=== PATIENT | female | born 1980 | race Two or more races ===

== ENCOUNTER 2024-05-10 03:34 | Inpatient (IN) | payer MEDICAID, SELFPAY ==
[2024-05-10] VITALS (12 sets, daily range): BP systolic 109–152; BP diastolic 57–98; PULSE 55–94; RESP 16–23; TEMP 36.6–36.8; O2SAT 96–98; BMI 31.8; BMI 31.9
--- NOTE | 2024-05-10 04:04 | PD.EDRME ---
Rapid Medical Screening Exam RME Arrival date/time: 05/10/24 03:34 Chief Complaint: Fever Time Seen by Provider: 05/10/24 03:53 Vital signs: Vital Signs Temperature 98.2 F 05/10/24 03:58 Pulse Rate 94 05/10/24 03:58 Respiratory Rate 23 H 05/10/24 03:58 Blood Pressure 140/98 H 05/10/24 03:58 Pulse Oximetry (%) 98 05/10/24 03:58 Oxygen Delivery Method Room Air 05/10/24 03:58 [facility] Narrative: Fever, N/V, lower back pain, dysuria, urinary frequency since yesterday. Hx urosepsis multiple times in past. Hx of kidney transplant 2010. Prescribed Augmentin for UTI at PCP yesterday, patient took 1 dose.
[2024-05-10 04:24] LABS: Collection Type, Urine Clean Catch
--- NOTE | 2024-05-10 04:53 | PD.EDFEVER ---
ED Fever RME/HPI General Chief Complaint: Fever Stated Complaint: Re-UTI, Abdominal pain NV x 1 day, fever Time Seen by Provider: 05/10/24 03:53 Arrival date/time: 05/10/24 03:34 RME / HPI RME / HPI Narrative: Fever, N/V, lower back pain, dysuria, urinary frequency since yesterday. Hx urosepsis multiple times in past. Hx of kidney transplant 2010. Prescribed Augmentin for UTI at PCP yesterday, patient took [address] ------- Dr. Polanco?s Main ED Evaluation: 44yo female presents to the ED for fever, body aches, and UTI symptoms. Patient states she's had a fever since yesterday, reporting she last took Tylenol at 2200. Patient endorses having a fever, body aches, dysuria, and urinary frequency. She denies any nausea, vomiting, diarrhea or any other associated symptoms. 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) currently on immunosuppressants (cyclosporine, prednisone, mycophenolate), HTN, HLD, T2DM, recurrent UTIs Related Data Home Medications ?Medication ?Instructions ?Recorded ?Confirmed cyclosporine modified 100 mg 100 mg PO BID 08/11/22 02/21/24 capsule glipizide 10 mg tablet, extended 10 mg PO BID 08/11/22 02/21/24 release 24 hr (Glucotrol XL) metoprolol tartrate 50 mg tablet 50 mg PO BID 08/11/22 02/21/24 mycophenolate sodium 180 mg 540 mg PO BID 08/11/22 08/29/23 tablet,delayed release prednisone 2.5 mg tablet 2.5 mg PO DAILY 08/11/22 02/21/24 mycophenolate sodium 180 mg 180 mg PO BID 02/22/24 02/22/24 tablet,delayed release mycophenolate sodium 180 mg mg PO 02/22/24 tablet,delayed release Previous Rx's ?Medication ?Instructions ?Recorded sitagliptin phosphate 50 mg tablet 50 mg PO QDAY #30 tabs 07/24/23 (Januvia) baclofen 20 mg tablet 20 mg PO BID #10 tabs 01/31/24 ondansetron 4 mg disintegrating 4 mg PO Q8H PRN nausea and 02/23/24 tablet vomiting #10 tabs oxycodone-acetaminophen 5 mg-325 1 tab PO Q6HR PRN PAIN SCALE 7-10 02/23/24 mg tablet (severe) #5 tabs fluconazole 150 mg tablet 150 mg PO QDAY #3 tabs 02/25/24 Allergies Allergy/AdvReac Type Severity Reaction Status Date / Time codeine Allergy Severe Rash Verified 02/21/24 12:27 Fish Containing Products Allergy Severe Difficulty Verified 02/21/24 12:27 Breathing vancomycin Allergy Severe RASH Verified 02/21/24 12:27 Review of Systems Review of Systems Systems Reviewed: All systems reviewed, normal except as documented Physical Exam Narrative Physical exam: GENERAL APPEARANCE: alert and oriented x 4, well-developed, well-nourished, no acute distress VITALS: All vitals were reviewed and the pulse ox is 98% on room air, which is normal according to my interpretation. HEENT: Normocephalic, atraumatic; pupils equal, round, reactive to light; EOMI; mucous membranes pink, moist; oropharynx clear NECK: Supple LUNGS: CTABL; no wheezes, no rales, no rhonchi HEART: Regular rate, regular rhythm; normal S1, S2; no murmurs ABDOMEN: non distended; normal BS; soft, no tenderness, no guarding, no rebound; no masses, no organomegaly, no hernia BACK: no CVA tenderness EXTREMITIES: atraumatic; no edema NEUROLOGIC: awake; alert and oriented x4; cranial nerves II-XII grossly intact; no focal sensory or motor deficits PSYCHIATRIC: appropriate mood and affect SKIN: warm, dry, normal color; no rashes Course Course Course Narrative: CXR is ordered for determining the etiology of fever. Quality Measures none Orders Category Date Time Status Network Intelligence Analyst STAT Care 05/10/24 05:05 Active Continuous Pulse Oximetry STAT Care 05/10/24 05:05 Completed EKG (ED ONLY) *Do not use* NOW Care 05/10/24 05:04 Completed In and Out Catheter [id number] Care 05/10/24 05:05 Active Insert IV NOW Care 05/10/24 05:05 Active Insert IV NOW Care 05/10/24 05:05 Active NPO STAT Care 05/10/24 05:05 Active Strict Intake and Output Routine Care 05/10/24 05:05 Ordered EKG (ED Only) Stat Exams 05/10/24 05:04 Ordered XR chest 1V portable Stat Exams 05/10/24 05:08 Ordered B-Type Natriuretic Peptide Stat Lab 05/10/24 05:05 Ordered Blood Culture (Lab) Stat Lab 05/10/24 04:06 Ordered CBC Stat Lab 05/10/24 04:06 Ordered CMP [Comprehensive Metabolic Panel] Stat Lab 05/10/24 04:06 Ordered HCG Qualitative,Urine Stat Lab 05/10/24 04:13 Completed LDH (Lactate Dehydrogenase) Stat Lab 05/10/24 05:05 Ordered Lactate (Lactic Acid) Stat Lab 05/10/24 04:06 Ordered Lipase Stat Lab 05/10/24 05:05 Ordered Magnesium Stat Lab 05/10/24 05:05 Ordered Partial Thromboplastin Time Stat Lab 05/10/24 05:05 Ordered Phosphorous Stat Lab 05/10/24 05:05 Ordered Procalcitonin Stat Lab 05/10/24 04:06 Ordered Prothrombin Time with INR Stat Lab 05/10/24 05:05 Ordered Troponin I Stat Lab 05/10/24 05:05 Ordered UA [Urinalysis] Stat Lab 05/10/24 04:13 Completed Urine Culture Stat Lab 05/10/24 04:13 Received Acetaminophen Tab [Tylenol ES Tab] Med 05/10/24 05:04 Discontinued 1,000 mg PO X1 ONE Morphine Inj Med 05/10/24 04:48 Discontinued 4 mg IVP X1 ONE Ondansetron Inj [Zofran Inj] Med 05/10/24 04:48 Discontinued 4 mg IV X1 ONE Sodium Chloride 0.9% 1000 ml [Ns] 1,000 ml Med 05/10/24 04:49 Discontinued IV 999 mls/hr Sodium Chloride 0.9% 1000 ml [Ns] 1,572 ml Med 05/10/24 05:04 Active IV 1,572 mls/hr Vital Signs Vital signs: Vital Signs Temperature 98.2 F 05/10/24 03:58 Pulse Rate 94 05/10/24 03:58 Respiratory Rate 23 H 05/10/24 03:58 Blood Pressure 140/98 H 05/10/24 03:58 Pulse Oximetry (%) 98 05/10/24 03:58 Oxygen Delivery Method Room Air 05/10/24 03:58 Fever MDM Narrative MDM Narrative:: Scribe Attestation: 05/10/24 Jessica Godinez am scribing for and in the presence of Dr. Polanco. 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 Bloodwork is pending at sign out. EKG done at 0516, NSR, rate of 77, normal axis, no ectopy, Q wave in V1 and V2, ST abnormalities in lead III and avF, QTc: 377, no acute ischemia, according to my interpretation. Medications / Prescriptions Medications or Prescriptions considered but not ordered:: none Medication administrations:: Medication Administration History Sodium Chloride (Ns) 1,572 mls @ 1,572 mls/hr 30 ml/kg infuse over 60 min (1572 ml) IV .Q1H ONE Stop: 05/10/24 06:03 Last Admin: 05/10/24 05:09 Dose: 1,572 mls/hr Documented By: JAY Discontinued Medications Acetaminophen (Acetaminophen 500 Mg Tablet) 1,000 mg PO X1 ONE Stop: 05/10/24 05:05 Last Admin: 05/10/24 05:12 Dose: 1,000 mg Documented By: JAY Sodium Chloride (Ns) 1,000 mls @ 999 mls/hr IV .Q1H1M ONE Stop: 05/10/24 05:49 Last Admin: 05/10/24 05:09 Dose: Not Given Documented By: JAY Non-Admin Reason: Discontinued Morphine Sulfate (Morphine Sulf Inj 10 Mg/Ml Vial) 4 mg IVP X1 ONE Stop: 05/10/24 04:49 Last Admin: 05/10/24 05:09 Dose: 4 mg Documented By: JAY Ondansetron HCl (Ondansetron Inj 2 Mg/Ml Inj 2 Ml) 4 mg IV X1 ONE; Protocol Stop: 05/10/24 04:49 Last Admin: 05/10/24 05:09 Dose: 4 mg Documented By: JAY see above Consultations Consultation(s) initiated? (list below): No Diagnosis Fever Differential Diagnosis: pyelonephritis and other (graft rejection, UTI, urosepsis) Most likely diagnosis given after review of the tests above:: final dx pending at sign out. Admission Indicated Admission indicated?: not indicated Admission Request Was there a request for admission?: No Disposition Plan Disposition Plan: other (specify) (Signed out to Dr. Alvares at 0600 pending bloodwork.) Discharge Plan Prescriptions/Referrals Prescriptions/Med Rec: No Action baclofen 20 mg tablet 20 mg PO BID Qty: 10 0RF mycophenolate sodium 180 mg tablet,delayed release (DR/EC) 180 mg PO BID mycophenolate sodium 180 mg tablet,delayed release (DR/EC) PO oxycodone-acetaminophen 5-325 mg Tablet 1 tab PO Q6HR MDD 20mg PRN (Reason: PAIN SCALE 7-10 (severe)) Qty: 5 0RF Rx Instructions: Take 1 tablet as needed for severe pain ondansetron 4 mg tablet,disintegrating 4 mg PO Q8H PRN (Reason: nausea and vomiting) Qty: 10 0RF fluconazole 150 mg tablet 150 mg PO QDAY Qty: 3 0RF glipizide [Glucotrol XL] 10 mg Tablet Extended Release 24hr 10 mg PO BID prednisone 2.5 mg tablet 2.5 mg PO DAILY metoprolol tartrate 50 mg Tablet 50 mg PO BID mycophenolate sodium 180 mg tablet,delayed release (DR/EC) 540 mg PO BID cyclosporine modified 100 mg capsule 100 mg PO BID Januvia 50 mg tablet 50 mg PO QDAY Qty: 30 0RF Problem List Clinical Impression: UTI (urinary tract infection) Patient/Caregiver Discharge Instructions Print Language: Indonesian
[2024-05-10 04:55] LABS: Bilirubin,Urine Negative (Negative); Blood,Urine Trace (Negative); Budding Yeast,Urine Present; Color,Urine Lt-Yellow (Lt Yel-Yel); Glucose, Urine 1+ (Negative); Ketones,Urine Negative (Negative); Leukocyte Esterase,Urine Positive (Negative); Nitrite,Urine Negative (Negative); Protein,Urine Trace (Neg - Trace); RBC,Urine 10 /hpf (0-3); Specific Gravity,Urine 1.012 (1.001-1.035); Squamous Epithelial Cell,Urine 9 /hpf (0-5); Urobilinogen,Urine Negative mg/dL (0.0-1.0); WBC,Urine 470 /hpf (0-5)
[2024-05-10 04:56] LABS: Clarity,Urine Hazy (Clear/Hazy)
[2024-05-10 04:59] LABS: HCG Qualitative,Urine Negative
--- NOTE | 2024-05-10 05:08 | XR_ITS ---
Examination: AP chest single view Technique: AP portable upright chest single view Exam date and time: May 10, 2024 0600 hrs. Comparison February 21, 2024 Indications: Onset fever coughing today Findings: Suspicious for early pneumonia lateral left base, blunting the left lateral costophrenic angle Reduced inspiratory effort Right subclavian axillary stent Mild vascular congestion No significant cardiac enlargement Impression: Suspicious for early lateral left base pneumonia
[2024-05-10] MEDS: MORPHINE SULF INJ 10 MG/ML VIAL 4 MG IVP (05:09)
[2024-05-10] MEDS: SODIUM CHLORIDE 0.9% 1000 ML 1,572 ML 1572 ML IV (05:09)
[2024-05-10] MEDS: ONDANSETRON INJ 2 MG/ML INJ 2 ML 4 MG IV ×2 (05:09→13:12)
[2024-05-10] MEDS: ACETAMINOPHEN 500 MG TABLET 1000 MG PO (05:12)
[2024-05-10] MEDS: cefTRIAXone/D5w 1gm IV premix 50 ML IV (05:54)
[2024-05-10 05:56] LABS: Lactate (Lactic Acid) 1.5 mMol/L (0.4-2.0)
[2024-05-10 06:07] LABS: Basophils % (Auto) 0 % (0-2.5); Eosinophils # (Auto) 0.1 Thou/mm3 (0.0-0.5); Eosinophils % (Auto) 0 % (0-10); Hematocrit 34.5 % (36.0-46.0); Hemoglobin 11.8 g/dL (12.0-16.0); Immature Granulocytes % (Auto) 0 % (0-0); Immature Granulocytes Auto 0.04 Thou/mm3 (0.00-0.00); Lymphocytes # (Auto) 1.3 Thou/mm3 (1.0-4.8); Lymphocytes % (Auto) 10 % (10-50); Mean Corpuscular HGB Conc 34.2 g/dl (31.0-37.0); Mean Corpuscular Hemoglobin 28.4 pg (25.0-35.0); Mean Corpuscular Volume 83 fL (80-100); Monocytes % (Auto) 8 % (0-12); Neutrophils # (Auto) 10.2 Thou/mm3 (1.8-7.7); Neutrophils % (Auto) 81 % (37-80); Nucleated Red Blood Cell % 0 /100 WBC (0); Platelet Count 381 Thou/mm3 (140-440); RDW Standard Deviation 41.1 fL (36.4-46.3); Red Blood Count 4.15 Miln/mm3 (4.00-5.20); White Blood Count 12.5 Thou/mm3 (3.6-11.0)
[2024-05-10 06:50] LABS: Alanine Aminotransferase < 7 U/L (10-49); Albumin, Serum 4.5 gm/dL (3.5-5.0); Albumin/Globulin Ratio 1.4 (1.2-2.2); Alkaline Phosphatase 65 U/L (46-116); Anion Gap 8 (7-16); Aspartate Amino Transferase < 10 U/L (0-34); BUN/Creatinine Ratio 12 Ratio (12-20); Bilirubin,Total 0.8 mg/dL (0.3-1.2); Blood Urea Nitrogen 19 mg/dL (9-23); Calcium 9.4 mg/dL (8.3-10.6); Calcium (Corrected) 9.4 mg/dL (8.5-10.1); Carbon Dioxide 20.2 mMol/L (20.0-31.0); Chloride 104 mMol/L (98-107); Creatinine (Component) 1.6 mg/dL (0.6-1.3); Estimated Creatinine Clearance 44.5 mL/min (>60); Globulin 3.2 gm/dL (2.3-3.5); Glucose 186 mg/dL (74-106); LDH (Lactate Dehydrogenase) 161 U/L (120-246); Lipase 41 U/L (12-53); Magnesium 1.8 mg/dL (1.6-2.6); Osmolality,Calculated 271 (275-295); Phosphorous 1.7 mg/dL (2.4-5.1); Potassium 3.6 mMol/L (3.4-5.1); Procalcitonin 0.13 ng/ml (0.0-0.49); Sodium 132 mMol/L (136-145); Total Protein 7.7 gm/dL (5.7-8.2); Troponin I < 0.020 ng/mL (0.0-0.045); eGFR 40 See Note
--- NOTE | 2024-05-10 07:20 | EDNOTE_ITS ---
Emergency Room Addendum <Aleida Pat - Last Filed: 05/10/24 07:22> Addendum Narrative: 0600: Care assumed from Dr. Polanco, the previous shift emergency physician. Past medical, surgical, social and family history reviewed. Vitals and home medications reviewed. I will assume the care of the patient at this time, pending labs and final disposition. Please refer to the emergency department record for history and examination from initial visit.? Nursing notes reviewed by me. Vital signs reviewed by me. [place] medical records reviewed by me. 0718: I spoke with buttonhole marker Dr. Chappell. Discussed patients PMHx, HPI, ED course, exam findings, labs, and radiology results. She agrees to consult. 0722: I spoke with resident Dr. Nelson working with Dr. Lynch. Discussed patients PMHx, HPI, ED course, exam findings, labs, and radiology results. The hospitalist agree to accept the patient for admission. <Vinny Alvares MD - Last Filed: 05/10/24 07:32> Addendum Narrative: I took over the care from Dr. Polanco at 6 AM on 05/10/2024, see his notes for complete H&P and ED course. I reviewed all diagnostic test results. My interpretation of the chest x-ray is equivocal infiltrates. Blood tests remarkable for WBC 12.5, Cr 1.6, phosphorus 1.7. UA showed leukocyte esterase, RBC, WBC, and yeast. At this point, diagnoses include UTI, pyelonephritis, pneumonia, hypophosphatemia. Treatment here included IV fluid, Rocephin, Diflucan. Significant improvement not noted. I discussed the case with our buttonhole marker and our hospitalist. About the presentation and exam and diagnostics and treatments here. And need of further care in the hospital. Will accept the patient. 0718: I spoke with buttonhole marker Dr. Chappell. Discussed patients PMHx, HPI, ED course, exam findings, labs, and radiology results. She agrees to consult. 0722: I spoke with resident Dr. Nelson working with Dr. Lynch. Discussed patients PMHx, HPI, ED course, exam findings, labs, and radiology results. The hospitalist agree to accept the patient for admission.
[2024-05-10 07:45] LABS: B-Type Natriuretic Peptide 24 pg/mL (0-100)
--- NOTE | 2024-05-10 08:00 | PC.NURSE ---
hospitalist at bedside
[2024-05-10] MEDS: HYDROmorphone INJ 2 MG/ML VIAL 1 MG IVP (08:09)
[2024-05-10] MEDS: FLUCONAZOLE/NS 200 MG IVPB 200 MG/100 ML BAG 100 MG IV (08:10)
[2024-05-10 08:43] LABS: Partial Thromboplastin Time 25.5 Seconds (22.0-36.0); Prothrombin Time 11.3 Seconds (9.0-12.2)
--- NOTE | 2024-05-10 09:03 | PD.RESPRO ---
Documentation for date of: 05/11/24 Exam Vital Signs Temp Pulse Resp BP Pulse Ox O2 Del Method 97.4 F 90 17 155/89 H 99 Room Air 05/11/24 08:00 05/11/24 08:02 05/11/24 08:00 05/11/24 08:02 05/11/24 08:00 05/11/24 08:00 Objective Labs 05/11/24 04:45 05/11/24 04:45 Labs: Laboratory Results - last 24 hr 05/11/24 04:45 WBC 8.6 RBC 4.02 Hgb 11.4 L Hct 34.9 L MCV 87 MCH 28.4 MCHC 32.7 RDW Std Deviation 43.6 Plt Count 365 Neut % (Auto) 73 Lymph % (Auto) 18 [place] % (Auto) 8 Eos % (Auto) 1 Baso % (Auto) 0 Neut # (Auto) 6.2 Lymph # (Auto) 1.5 [place] # (Auto) 0.7 Eos # (Auto) 0.1 Baso # (Auto) 0.0 Immature Gran # (Auto) 0.05 H Absolute Nucleated RBC 0.00 Immature Gran % 1 H Nucleated RBC % 0 Sodium 135 L Potassium 3.6 Chloride 105 Carbon Dioxide 23.2 Anion Gap 7 BUN 13 Creatinine 1.4 H Estim Creat Clear Calc 50.9 L eGFR 47 L BUN/Creatinine Ratio 9 L Glucose 119 H D Calculated Osmolality 271 L Calcium 9.1 Corrected Calcium 9.1 Phosphorus 2.8 Magnesium 2.3 Total Bilirubin 0.4 AST < 10 ALT < 7 L Alkaline Phosphatase 71 Total Protein 7.3 Albumin 4.2 Globulin 3.1 Albumin/Globulin Ratio 1.4 Quality Measures Quality Measures none Assessment & Plan Assessment Current Active Medications: Generic Name Dose Route Start Last Admin Trade Name Freq PRN Reason Stop Dose Admin Acetaminophen 650 mg 05/10/24 08:35 Acetaminophen 325 Mg Tablet PO 06/09/24 08:34 Q6H PRN Mild Pain 1-3 or Fever >100.4 Hydrocodone Bitart/Acetaminophen 1 tab 05/10/24 15:06 Hydrocodone/Apap 5/325 Tablet PO 05/15/24 15:05 Q4HR PRN Moderate Pain 4-6 Al Hydrox/Mg Hydrox/Simethicone 15 ml 05/10/24 15:02 Mg Hyd/Al Hyd/Ritchie (Maalox Reg) Susp 30 Ml Udc PO 06/09/24 15:01 QID PRN Vomiting Cyclosporine 100 mg 05/10/24 21:00 05/11/24 08:01 Cyclosporine Modified 25 Mg Capsule PO 06/09/24 20:59 100 mg BID ROSETTE Administration Dextrose 25 ml 05/10/24 08:41 Dextrose 50%-Water Inj 50 Ml Syringe IV 06/09/24 08:40 Q15MIN PRN BG 50-70 responsive npo pt Dextrose 50 ml 05/10/24 08:41 Dextrose 50%-Water Inj 50 Ml Syringe IV 06/09/24 08:40 Q15MIN PRN BG <50 OR BG <70 & pt unresponsive Glucagon 1 mg 05/10/24 08:41 Glucagon Inj 1 Mg Vial IM Q15MIN PRN BG <70, and no IV access Heparin Sodium (Porcine) 5,000 unit 05/10/24 09:00 05/11/24 08:03 Heparin Sod Inj 5000 Unit/Ml Vial SC 05/24/24 08:59 5,000 unit Q12HR ROSETTE Administration Hydromorphone HCl 0.25 mg 05/10/24 15:08 Hydromorphone Inj 2 Mg/Ml Vial IVP 05/15/24 15:07 Q4HR PRN Severe Pain 7-10 Sodium Chloride 1,000 mls @ 80 mls/hr 05/10/24 08:43 05/11/24 01:38 Ns IV 06/09/24 08:42 80 mls/hr .[id number] ROSETTE Administration Ceftriaxone Sodium/Dextrose 50 mls @ 100 mls/hr 05/11/24 09:00 05/11/24 08:02 Rocephin/D5w 1gm Iv Premix IV 05/18/24 08:59 100 mls/hr QDAY ROSETTE Administration Insulin Human Lispro 0 unit 05/10/24 21:00 05/11/24 07:40 Insulin Lispro (Admelog) 1 Unit/0.01 Ml Unit SC 06/09/24 20:59 1 unit ACHS ROSETTE Administration Protocol Metoprolol Tartrate 50 mg 05/10/24 21:00 05/11/24 08:02 Metoprolol Tartrate 25 Mg Tablet PO 06/09/24 20:59 50 mg BID ROSETTE Administration Ondansetron HCl 4 mg 05/10/24 08:35 05/10/24 13:12 Ondansetron Inj 2 Mg/Ml Inj 2 Ml IV 06/09/24 08:34 4 mg Q6H PRN Administration NAUSEA OR VOMITING Protocol Polyethylene Glycol 17 gm 05/11/24 09:00 Polyethylene Glycol 17 Gm Packet PO 06/10/24 08:59 QDAY ROSETTE Prednisone 2.5 mg 05/11/24 09:00 05/11/24 08:02 Prednisone 5 Mg Tablet PO 06/10/24 08:59 2.5 mg DAILY ROSETTE Administration Sennosides 1 tab 05/10/24 08:35 Senna Tablet PO 06/09/24 08:34 QDAY PRN constipation Protocol
[2024-05-10] MEDS: SODIUM CHLORIDE 0.9% 1000 ML 1,000 ML 80 ML IV (10:20)
[2024-05-10] MEDS: HEPARIN SOD INJ 5000 UNIT/ML VIAL SC ×2 (10:20→21:03)
--- NOTE | 2024-05-10 11:37 | PC.CC ---
Patient is a 44 year-old female who presents to the hospital for complicated UTI. Mary NUR made [id number] contact with patient. ASW introduced self, role, and reason for visit. Patient appeared alert and oriented to self, location, and situation. Patient was pleasant and engaged in initial assessment. Patient confirmed information on demographics and reports to living with her family. Patient is employes full-time with [employer]. Patient stated in the event that she is unable to make her own medical decisions her sister, Dori Benz would be her medical decision maker. Patient is able to ambulate independently and complete her own ADLs without assistance. Patient does not use any DME at home. Patient receives primary care with Kris Mccurdy and her pharmacy is [facility]. Upon discharge patient plans to return home. Social servicces to follow up with any discharge needs.
--- NOTE | 2024-05-10 12:36 | PC.NURSE ---
report given to Kandice on med tele floor. pt to go to room [id number]
--- NOTE | 2024-05-10 15:17 | ESHP_ITS ---
<Statement entered by Cayetano Nelson MD - 05/10/24 22:14> This patient is a 44-year-old female with past medical history of hypertension, hyperlipidemia, type 2 diabetes, CKD stage IIIb post a renal transplant for left kidney unrelated living donor 2010 on cyclosporine, prednisone and mycophenolate presented with chief complaint of increased frequency, urgency and increased burning sensation during urination. Patient complained that she also had lower back pain. Patient had recurrent episode of UTI per research program coordinator, Dr Chappell in last 1 year.Renal ultrasound showed moderate renal parenchymal scar formation. Renal artery and renal pelvis show peak systolic velocity 122 cm/s. CT abdomen from 01/31/2024 showed tiny nonobstructing renal calculi no hydronephrosis. Atrophic end-stage [place] kidney. Left pelvic kidney transplant. We started on IV Zosyn and will follow-up on urine cultures. Previous urine cultures were sensitive to Zosyn and are not ESBL. Will hold off on mycophenolate and only continue prednisone and cyclosporine. Patient also has an SHAJI as per research program coordinator baseline creatinine is 1.2. Will continue with pain management and IV antibiotic therapy and follow-up on culture results tomorrow morning. All labs and orders were reviewed. I saw and examined the patient, and I agree with current management stated by Dr Idalmis NOLEN,PGY1. Plan of care was discussed with the attending physician and resident physician. Disclaimer: Despite multiple revisions, due to the dictation software being used, the document bellow may not be free of grammatical errors including phonetic/typographic errors. However, this does not deter from our commitment to providing health care in the patient's best interest in mind. Dr. Omar MD, PGY 2 Documentation for date of: 05/10/24 HPI History of Present Illness History of present illness: CC: cloudy urine & increase frequency Patient has a past medical history of hypertension, hyperlipidemia, diabetes mellitus type 2 [id number], chronic kidney disease 3B status post renal transplant unrelated living donor (2010) on cyclosporine, prednisone, mycophenolate. Patient presented to the emergency room on 05/10/2024 with a chief complaint of increased urge, increased sensation of bladder fullness, nausea, and negative dysuria. Patient stated symptoms first began yesterday but denied fevers or chills at home. Denied emesis. Denied pain. Patient stated he urine is cloudy. Patient is on sure of genetic/familial condition that caused kidney failure but stated multiple family members including her mother have a history of chronic kidney failure at a younger age. ER Course: In the emergency room patient's vitals were stable but hypertensive blood pressure of 140/98. Upon a treatment 132, mild hypokalemia at 3.6, BUN 19, creatinine 1.6, CrCl 44.5, GFR 40. WBC was mildly elevated at 12.5. Glucose 186. Lactate within normal limits 1.5. BMP negative. Troponin within normal limit. Pro-Arnold 0.3. UA esterase positive WBC 470 E. positive bacteria negative PMH: Hypertension, hyperlipidemia, diabetes mellitus type 2 [id number], CKD 3B status post renal transplant living donor unrelated Past Surgical History: Appendectomy 2011 kidney transplant Past Family History: Family of Kidney Failure Home Medication: Glipizide 10 mg twice daily baclofen, metoprolol tartrate 50 p.o. twice daily cyclosporine, prednisone, mycophenolate Social History: Alcohol Use Socially Marijuana Use occasionally Never smoker, denied vaping Denied Illicit Drug use Allergies: Codeine, and Vanco--RASH Code Status: Full Code Review of Systems Review of Systems Narrative Review of Systems: General appearance: NO weight change, NO fatigue, NO weakness, NO fever, NO chills, NO night sweats, No cough Skin: NO rash, NO itching, NO sores, NO moles HEENT: NO Trauma, NO nausea, NO vomiting, NO visual changes, NO blurry vision, NO double vision, NO tinnitus, NO vertigo, NO ear discharge, NO rhinorrhea, NO stuffiness, NO sneezing, NO allergy, NO epistaxis. NO Hoarseness, NO sore throat, NO swollen neck. Cardiac: NO Palpitations, NO dyspnea on exertion, NO orthopnea, NO paroxysmal nocturnal dyspnea, NO edema Respiratory: NO Shortness of Breath, NO Wheezing, NO Cough, NO Sputum, NO hemoptysis GI:NO appetite, NO nausea, NO vomiting, NO dysphagia, NO changes in bowel frequency, NO stool color, NO diarrhea, NO constipation, NO hemetemesis, NO hemorrhoids, NO melena, NO hematechezia, NO abdominal pain, NO jaundice Renal: YES frequency, NO hesitancy, YES urgency, NO hematuria, NO nocturia, NO incontinence MSK: NO muscle weakness, NO gout, NO arthritis, NO muscle stiffness Neuro: NO headaches, NO tremors, NO weakness, NO paralysis, NO seizures, NO loss of consciousness, NO numbness. Hem: NO anemia, NO easy bruising/bleeding, NO petechiae, NO purpura Endo: NO heat/cold intolerance, NO excessive sweating, NO polyuria, NO polydipsia, NO polyphagia, NO thyroid problems, NO diabetes Pysch: NO mood, NO anxiety, NO depression Exam Vital Signs Temp Pulse Resp BP Pulse Ox O2 Del Method 97.9 F 72 16 141/95 H 97 Room Air 05/10/24 12:00 05/10/24 14:05 05/10/24 12:00 05/10/24 12:00 05/10/24 12:00 05/10/24 12:00 Narrative Exam General Appearance: Alert & Oriented X3, well-nourished female who is lying in bed in no acute distress HEENT: Skull symmetrical and atraumatic. Conjunctivae pin and moist. Pupils equal, round, reactive to light and accommodation (PERRL). External ear without lesion or discharge. Straight, nares patient, mucosa pink, no discharge. No thyroid nodule appreciated. No cervical lymphadenopathy. Cardio: Normal Rate and Rhythm with S1 and S2 heart sounds. No murmurs or extra heart sounds auscultated. No bruits on carotid auscultation. No peripheral edema or cyanosis. Lungs: Symmetric with good expansion. Chest and back non-tender. Breath sounds vesicular without crackles, wheezing or rhonchi Abdomen: Non-tender, Non-distended, Normal Reactive Bowel Sounds, costophrenic angle-only MILD tenderness at best Neuro: Alert, cooperative, oriented to person, place, and time. Speech clear. CN grossly intact. Upper motor strength 5/5 and Lower motor strength 5/5. Sensation intact. Results: Labs 05/10/24 05:15 05/10/24 05:15 Labs: Short CBC 05/10/24 Range/Units 05:15 WBC 12.5 H (3.6-11.0) Thou/mm3 Hgb 11.8 L (12.0-16.0) g/dL Hct 34.5 L (36.0-46.0) % Plt Count 381 (140-440) Thou/mm3 BMP 05/10/24 05:15 Sodium 132 L Potassium 3.6 Chloride 104 Carbon Dioxide 20.2 BUN 19 Creatinine 1.6 H Glucose 186 H Calcium 9.4 Cardiac Enzymes 05/10/24 Range/Units 05:15 Troponin I < 0.020 (0.0-0.045) ng/mL Liver Function 05/10/24 Range/Units 05:15 Total Bilirubin 0.8 (0.3-1.2) mg/dL AST < 10 (0-34) U/L ALT < 7 L (10-49) U/L Alkaline Phosphatase 65 (46-116) U/L Albumin 4.5 (3.5-5.0) gm/dL Urine 05/10/24 Range/Units 04:13 Urine Color Lt-Yellow (Lt Yel-Yel) Urine Clarity Hazy (Clear/Hazy) Urine pH 6.0 (5.0-7.0) Ur Specific [place] 1.012 (1.001-1.035) Urine Protein Trace (Neg - Trace) Urine Glucose (UA) 1+ A (Negative) Quality Measures Quality Measures none Medications Home Medications and Allergies Home Medications ?Medication ?Instructions ?Recorded ?Confirmed ?Type cyclosporine modified 100 mg 100 mg PO BID 08/11/22 05/10/24 History capsule glipizide 10 mg tablet, extended 10 mg PO BID 08/11/22 05/10/24 History release 24 hr (Glucotrol XL) metoprolol tartrate 50 mg tablet 50 mg PO BID 08/11/22 05/10/24 History mycophenolate sodium 180 mg 540 mg PO BID 08/11/22 05/10/24 History tablet,delayed release prednisone 2.5 mg tablet 2.5 mg PO DAILY 08/11/22 05/10/24 History Allergies Allergy/AdvReac Type Severity Reaction Status Date / Time codeine Allergy Severe Rash Verified 02/21/24 12:27 Fish Containing Products Allergy Severe Difficulty Verified 02/21/24 12:27 Breathing vancomycin Allergy Severe RASH Verified 02/21/24 12:27 Visit Medications Acetaminophen (Acetaminophen 325 Mg Tablet) 650 mg PO Q6H PRN PRN Reason: Mild Pain 1-3 or Fever >100.4 Stop: 06/09/24 08:34 Hydrocodone Bitart/Acetaminophen (Hydrocodone/Apap 5/325 Tablet) 1 tab PO Q4HR PRN PRN Reason: Moderate Pain 4-6 Stop: 05/15/24 15:05 Al Hydrox/Mg Hydrox/Simethicone (Mg Hyd/Al Hyd/Ritchie (Maalox Reg) Susp 30 Ml Udc) 15 ml PO QID PRN PRN Reason: Vomiting Stop: 06/09/24 15:01 Cyclosporine (Cyclosporine Modified 25 Mg Capsule) 100 mg PO BID [facility] Stop: 06/09/24 20:59 Dextrose (Dextrose 50%-Water Inj 50 Ml Syringe) 25 ml IV Q15MIN PRN PRN Reason: BG 50-70 responsive npo pt Stop: 06/09/24 08:40 Dextrose (Dextrose 50%-Water Inj 50 Ml Syringe) 50 ml IV Q15MIN PRN PRN Reason: BG <50 OR BG <70 & pt unresponsive Stop: 06/09/24 08:40 Glucagon (Glucagon Inj 1 Mg Vial) 1 mg IM Q15MIN PRN PRN Reason: BG <70, and no IV access Heparin Sodium (Porcine) (Heparin Sod Inj 5000 Unit/Ml Vial) 5,000 unit SC Q12HR [facility] Stop: 05/24/24 08:59 Last Admin: 05/10/24 10:20 Dose: 5,000 unit Hydromorphone HCl (Hydromorphone Inj 2 Mg/Ml Vial) 0.25 mg IVP Q4HR PRN PRN Reason: Severe Pain 7-10 Stop: 05/15/24 15:07 Sodium Chloride (Ns) 1,000 mls @ 80 mls/hr IV .[id number] [facility] Stop: 06/09/24 08:42 Last Admin: 05/10/24 10:20 Dose: 80 mls/hr Ceftriaxone Sodium/Dextrose (Rocephin/D5w 1gm Iv Premix) 50 mls @ 100 mls/hr IV QDAY [facility] Stop: 05/18/24 08:59 Insulin Human Lispro (Insulin Lispro (Admelog) 1 Unit/0.01 Ml Unit) 0 unit SC Q6HR [facility]; Protocol Stop: 06/09/24 11:59 Last Admin: 05/10/24 12:17 Dose: Not Given Metoprolol Tartrate (Metoprolol Tartrate 25 Mg Tablet) 50 mg PO BID [facility] Stop: 06/09/24 20:59 Ondansetron HCl (Ondansetron Inj 2 Mg/Ml Inj 2 Ml) 4 mg IV Q6H PRN; Protocol PRN Reason: NAUSEA OR VOMITING Stop: 06/09/24 08:34 Last Admin: 05/10/24 13:12 Dose: 4 mg Prednisone (Prednisone 5 Mg Tablet) 2.5 mg PO DAILY ROSETTE Stop: 06/10/24 08:59 Sennosides (Senna Tablet) 1 tab PO QDAY PRN; Protocol PRN Reason: constipation Stop: 06/09/24 08:34 Discontinued Medications Acetaminophen (Acetaminophen 500 Mg Tablet) 1,000 mg PO X1 ONE Stop: 05/10/24 05:05 Last Admin: 05/10/24 05:12 Dose: 1,000 mg Hydromorphone HCl (Hydromorphone Inj 2 Mg/Ml Vial) 1 mg IVP X1 ONE Stop: 05/10/24 06:31 Last Admin: 05/10/24 08:09 Dose: 1 mg Sodium Chloride (Ns) 1,000 mls @ 999 mls/hr IV .Q1H1M ONE Stop: 05/10/24 05:49 Last Admin: 05/10/24 05:09 Dose: Not Given Sodium Chloride (Ns) 1,572 mls @ 1,572 mls/hr 30 ml/kg infuse over 60 min (1572 ml) IV .Q1H ONE Stop: 05/10/24 06:03 Last Infusion: 05/10/24 10:16 Dose: Infused Ceftriaxone Sodium/Dextrose (Rocephin/D5w 1gm Iv Premix) 50 mls @ 100 mls/hr IV X1 ONE Stop: 05/10/24 06:02 Last Infusion: 05/10/24 06:24 Dose: Infused Fluconazole (Diflucan/Ns Ivpb) 200 mg in 100 mls @ 100 mls/hr IV X1 ONE Stop: 05/10/24 08:29 Last Infusion: 05/10/24 10:19 Dose: Infused Morphine Sulfate (Morphine Sulf Inj 10 Mg/Ml Vial) 4 mg IVP X1 ONE Stop: 05/10/24 04:49 Last Admin: 05/10/24 05:09 Dose: 4 mg Ondansetron HCl (Ondansetron Inj 2 Mg/Ml Inj 2 Ml) 4 mg IV X1 ONE; Protocol Stop: 05/10/24 04:49 Last Admin: 05/10/24 05:09 Dose: 4 mg Assessment & Plan Plan Patient is a 44-year-old female with a past medical history of hypertension, hyperlipidemia, diabetes mellitus type 2 [id number]-[id number], CKD who was admitted for a complicated UTI. #Complicated Urinary Tract Infection #leukocytosis #Nausea Patient has a past medical history of complicated urinary tract infection likely secondary to history of kidney transplant nonrelated living donor. Home medication is cyclosporine, prednisone, and mycophenolate. Patient stated she had increased sensation of fullness in her bladder, increased frequency, nausea, and negative dysuria. Diagnostics UA: Esterase positive, WBC 470, yeast a, no bacteria Plan -Ceftriaxone 1 g daily (05/10/2024) day 1 -Urine culture pending -Pain Management (Tylenol, [place] 5, Dilaudid 0.25) -Holding mycophenolate, given nephrotoxicity until SHAJI and UTI improved. #SHAJI on CKD 3a per Dr. Chappell who follows patient in clinic, baseline creatinine 1.2 thus creatinine 1.6 indicating an SHAJI. SHAJI on CKD. Previous US of kidneys showed moderate renal parenchymal scar formation. Plan -gentle hydration NS 1 liter 80 cc -Avoid Nephrotoxins -Renally Dose Medication -Hold Mycophenolate #Hx of Kidney Transplant Past medical history of kidney transplant secondary to familial history. Patient is unaware of type of kidney disease, unable to state everything autosomal dominant kidney disease, [place] disease vs Fabry. Per patient extensive family history of kidney failure form mother to extended uncles as well. Plan -Continue cyclosporine and prednisone -Hold mycophenolate given high nephrotoxicity. -Consider KANG #Diabetes Mellitus Type 2, non insulin dependent Patient has a past medical history of diabetes mellitus on glipizide 10 twice daily. Previous admission 02/21/2024 showed A1c of 8.9. Plan -Monitor Fasting Glucose -Sliding Sclae #HTN Resume home medication of Metoprolol Tartrate 50 mg PO BID #HLD Statin medication no listed in home medication list. Diagnostics: Lipid Panel (07/24/2023): Triglycerides 185, Cholesterol 144, LDL 59, HDL 49-->ASCVD 2.9% of cardiovascular event in the next 10 years. Plan -Discuss w/ patient risk and benefits of Statins. Health Maintenance: Disp: Pt is currently admitted to floors for further management of Complicated UTI, awaiting urine cultures FEN: Low carb consistent, renal diet DVT: on subQ heparin Code: Full Code - The patient's plan was discussed with attending Dr. Lynch and senior residents Dr. Omar Raygoza MD PGY1 Internal Medicine Attending Provider Attestation/Addendum I have discussed and was present for the essential components of the history, physical examination, diagnosis, and treatment plan with the resident. I agree with the patient's care as documented by the resident and amended herein by me. Sid Lynch, DO. Although this document has been carefully reviewed, there may still be some phonetic and other typographical errors. These errors are purely grammatical due to imperfections in the software program and should not be construed in any way to compromise the substance of the patient's medical care during this visit.
[2024-05-10] MEDS: Magnesium Sulfate 2 GM Ivpb 2 GM/50 ML BAG IV (16:44)
[2024-05-10] MEDS: POT PHOS 15 mMol in NS 250 ML 15 MMOL/250 ML BAG 62.5 MMOL IV (16:45)
[2024-05-10] MEDS: INSULIN LISPRO (AdmeLOG) 1 UNIT/0.01 ML UNIT SC ×2 (17:51→21:08)
[2024-05-10] MEDS: METOPROLOL TARTRATE 25 MG TABLET 50 MG PO (21:03)
[2024-05-11] VITALS (10 sets, daily range): BP systolic 131–155; BP diastolic 84–93; PULSE 57–90; RESP 12–22; TEMP 36.3–36.8; O2SAT 97–99; BMI 31.9
[2024-05-11] MEDS: SODIUM CHLORIDE 0.9% 1000 ML 1,000 ML 80 ML IV (01:38)
[2024-05-11 05:41] LABS: Basophils % (Auto) 0 % (0-2.5); Eosinophils # (Auto) 0.1 Thou/mm3 (0.0-0.5); Eosinophils % (Auto) 1 % (0-10); Hematocrit 34.9 % (36.0-46.0); Hemoglobin 11.4 g/dL (12.0-16.0); Immature Granulocytes % (Auto) 1 % (0-0); Immature Granulocytes Auto 0.05 Thou/mm3 (0.00-0.00); Lymphocytes # (Auto) 1.5 Thou/mm3 (1.0-4.8); Lymphocytes % (Auto) 18 % (10-50); Mean Corpuscular HGB Conc 32.7 g/dl (31.0-37.0); Mean Corpuscular Hemoglobin 28.4 pg (25.0-35.0); Mean Corpuscular Volume 87 fL (80-100); Monocytes # (Auto) 0.7 Thou/mm3 (0.0-0.8); Monocytes % (Auto) 8 % (0-12); Neutrophils # (Auto) 6.2 Thou/mm3 (1.8-7.7); Neutrophils % (Auto) 73 % (37-80); Nucleated Red Blood Cell % 0 /100 WBC (0); Platelet Count 365 Thou/mm3 (140-440); RDW Standard Deviation 43.6 fL (36.4-46.3); Red Blood Count 4.02 Miln/mm3 (4.00-5.20); White Blood Count 8.6 Thou/mm3 (3.6-11.0)
[2024-05-11 06:28] LABS: Alanine Aminotransferase < 7 U/L (10-49); Albumin, Serum 4.2 gm/dL (3.5-5.0); Albumin/Globulin Ratio 1.4 (1.2-2.2); Alkaline Phosphatase 71 U/L (46-116); Anion Gap 7 (7-16); Aspartate Amino Transferase < 10 U/L (0-34); BUN/Creatinine Ratio 9 Ratio (12-20); Bilirubin,Total 0.4 mg/dL (0.3-1.2); Blood Urea Nitrogen 13 mg/dL (9-23); Calcium 9.1 mg/dL (8.3-10.6); Calcium (Corrected) 9.1 mg/dL (8.5-10.1); Carbon Dioxide 23.2 mMol/L (20.0-31.0); Chloride 105 mMol/L (98-107); Creatinine (Component) 1.4 mg/dL (0.6-1.3); Estimated Creatinine Clearance 50.9 mL/min (>60); Globulin 3.1 gm/dL (2.3-3.5); Glucose 119 mg/dL (74-106); Magnesium 2.3 mg/dL (1.6-2.6); Osmolality,Calculated 271 (275-295); Phosphorous 2.8 mg/dL (2.4-5.1); Potassium 3.6 mMol/L (3.4-5.1); Sodium 135 mMol/L (136-145); Total Protein 7.3 gm/dL (5.7-8.2); eGFR 47 See Note
[2024-05-11] MEDS: INSULIN LISPRO (AdmeLOG) 1 UNIT/0.01 ML UNIT SC ×4 (07:40→20:30)
[2024-05-11] MEDS: cefTRIAXone/D5w 1gm IV premix 50 ML IV (08:02)
[2024-05-11] MEDS: predniSONE 5 MG TABLET 2.5 MG PO (08:02)
[2024-05-11] MEDS: METOPROLOL TARTRATE 25 MG TABLET 50 MG PO ×2 (08:02→20:34)
[2024-05-11] MEDS: HEPARIN SOD INJ 5000 UNIT/ML VIAL SC (08:03)
--- NOTE | 2024-05-11 11:02 | PC.SS ---
Rounding: UTI, on IV ABX, pending UA cultures
--- NOTE | 2024-05-11 14:14 | ESPR_ITS ---
<Statement entered by Cayetano Nelson MD - 05/11/24 20:58> Patient was seen and examined at the bedside. Patient reported that her symptoms are better today. We are currently awaiting for urine culture results and giving ceftriaxone 1 g once daily. Her home medications were reconciled. SHAJI has been improving as fluid therapy was given. Hemoglobin remained stable. All labs and orders were reviewed. I saw and examined the patient, and I agree with current management stated by Dr Idalmis NOLEN,PGY1. Plan of care was discussed with the attending physician and resident physician. Disclaimer: Despite multiple revisions, due to the dictation software being used, the document bellow may not be free of grammatical errors including phonetic/typographic errors. However, this does not deter from our commitment to providing health care in the patient's best interest in mind. Dr. Zuleika MD, PGY 2 Documentation for date of: 05/11/24 Subjective Subjective Interval history: Patient is a 44-year-old female with a past medical history of hypertension, hyperlipidemia, diabetes mellitus type 2 ldo-ucmhycn-rmfoxfvhj, CKD who was admitted for a complicated UTI. NO overnight events reported for patient. Patient denied dysuria. Flank pain improved. East[place] well. Denied pyrexia or chills overnight. Pending Urine culture to determine appropriate antibiotics for discharge. Exam Vital Signs Temp Pulse Resp BP Pulse Ox O2 Del Method 97.4 F 88 17 155/89 H 99 Room Air 05/11/24 08:00 05/11/24 12:00 05/11/24 08:00 05/11/24 08:02 05/11/24 08:00 05/11/24 08:00 Narrative Exam General Appearance: Alert & Oriented X3, well-nourished female who is lying in bed in no acute distress HEENT: Skull symmetrical and atraumatic. Conjunctivae pin and moist. Pupils equal, round, reactive to light and accommodation (PERRL). External ear without lesion or discharge. Straight, nares patient, mucosa pink, no discharge. No thyroid nodule appreciated. No cervical lymphadenopathy. Cardio: Normal Rate and Rhythm with S1 and S2 heart sounds. No murmurs or extra heart sounds auscultated. No bruits on carotid auscultation. No peripheral edema or cyanosis. Lungs: Symmetric with good expansion. Chest and back non-tender. Breath sounds vesicular without crackles, wheezing or rhonchi Abdomen: Non-tender, Non-distended, Normal Reactive Bowel Sounds, costophrenic angle-tenderness improved. Neuro: Alert, cooperative, oriented to person, place, and time. Speech clear. CN grossly intact. Upper motor strength 5/5 and Lower motor strength 5/5. Sensation intact. Objective Labs 05/11/24 04:45 05/11/24 04:45 Labs: Laboratory Results - last 24 hr 05/11/24 04:45 WBC 8.6 RBC 4.02 Hgb 11.4 L Hct 34.9 L MCV 87 MCH 28.4 MCHC 32.7 RDW Std Deviation 43.6 Plt Count 365 Neut % (Auto) 73 Lymph % (Auto) 18 [place] % (Auto) 8 Eos % (Auto) 1 Baso % (Auto) 0 Neut # (Auto) 6.2 Lymph # (Auto) 1.5 [place] # (Auto) 0.7 Eos # (Auto) 0.1 Baso # (Auto) 0.0 Immature Gran # (Auto) 0.05 H Absolute Nucleated RBC 0.00 Immature Gran % 1 H Nucleated RBC % 0 Sodium 135 L Potassium 3.6 Chloride 105 Carbon Dioxide 23.2 Anion Gap 7 BUN 13 Creatinine 1.4 H Estim Creat Clear Calc 50.9 L eGFR 47 L BUN/Creatinine Ratio 9 L Glucose 119 H D Calculated Osmolality 271 L Calcium 9.1 Corrected Calcium 9.1 Phosphorus 2.8 Magnesium 2.3 Total Bilirubin 0.4 AST < 10 ALT < 7 L Alkaline Phosphatase 71 Total Protein 7.3 Albumin 4.2 Globulin 3.1 Albumin/Globulin Ratio 1.4 Quality Measures Quality Measures none Assessment & Plan Assessment Current Active Medications: Generic Name Dose Route Start Last Admin Trade Name Freq PRN Reason Stop Dose Admin Acetaminophen 650 mg 05/10/24 08:35 Acetaminophen 325 Mg Tablet PO 06/09/24 08:34 Q6H PRN Mild Pain 1-3 or Fever >100.4 Hydrocodone Bitart/Acetaminophen 1 tab 05/10/24 15:06 Hydrocodone/Apap 5/325 Tablet PO 05/15/24 15:05 Q4HR PRN Moderate Pain 4-6 Al Hydrox/Mg Hydrox/Simethicone 15 ml 05/10/24 15:02 Mg Hyd/Al Hyd/Ritchie (Maalox Reg) Susp 30 Ml Udc PO 06/09/24 15:01 QID PRN Vomiting Cyclosporine 100 mg 05/10/24 21:00 05/11/24 08:01 Cyclosporine Modified 25 Mg Capsule PO 06/09/24 20:59 100 mg BID ROSETTE Administration Dextrose 25 ml 05/10/24 08:41 Dextrose 50%-Water Inj 50 Ml Syringe IV 06/09/24 08:40 Q15MIN PRN BG 50-70 responsive npo pt Dextrose 50 ml 05/10/24 08:41 Dextrose 50%-Water Inj 50 Ml Syringe IV 06/09/24 08:40 Q15MIN PRN BG <50 OR BG <70 & pt unresponsive Glucagon 1 mg 05/10/24 08:41 Glucagon Inj 1 Mg Vial IM Q15MIN PRN BG <70, and no IV access Hydromorphone HCl 0.25 mg 05/10/24 15:08 Hydromorphone Inj 2 Mg/Ml Vial IVP 05/15/24 15:07 Q4HR PRN Severe Pain 7-10 Ceftriaxone Sodium/Dextrose 50 mls @ 100 mls/hr 05/11/24 09:00 05/11/24 08:02 Rocephin/D5w 1gm Iv Premix IV 05/18/24 08:59 100 mls/hr QDAY ROSETTE Administration Insulin Human Lispro 0 unit 05/10/24 21:00 05/11/24 11:33 Insulin Lispro (Admelog) 1 Unit/0.01 Ml Unit SC 06/09/24 20:59 1 unit ACHS ROSETTE Administration Protocol Metoprolol Tartrate 50 mg 05/10/24 21:00 05/11/24 08:02 Metoprolol Tartrate 25 Mg Tablet PO 06/09/24 20:59 50 mg BID ROSETTE Administration Ondansetron HCl 4 mg 05/10/24 08:35 05/10/24 13:12 Ondansetron Inj 2 Mg/Ml Inj 2 Ml IV 06/09/24 08:34 4 mg Q6H PRN Administration NAUSEA OR VOMITING Protocol Polyethylene Glycol 17 gm 05/11/24 09:00 05/11/24 10:42 Polyethylene Glycol 17 Gm Packet PO 06/10/24 08:59 Not Given QDAY ROSETTE Prednisone 2.5 mg 05/11/24 09:00 05/11/24 08:02 Prednisone 5 Mg Tablet PO 06/10/24 08:59 2.5 mg DAILY ROSETTE Administration Sennosides 1 tab 05/10/24 08:35 Senna Tablet PO 06/09/24 08:34 QDAY PRN constipation Protocol Plan Patient is a 44-year-old female with a past medical history of hypertension, hyperlipidemia, diabetes mellitus type 2 arf-vtfixvz-czpymqrpt, CKD who was admitted for a complicated UTI. #Complicated Urinary Tract Infection #leukocytosis, improved #Nausea Patient has a past medical history of complicated urinary tract infection likely secondary to history of kidney transplant nonrelated living donor. Home medication is cyclosporine, prednisone, and mycophenolate. Patient stated she had increased sensation of fullness in her bladder, increased frequency, nausea, and negative dysuria. Diagnostics UA: Esterase positive, WBC 470, yeast a, no bacteria Plan -Ceftriaxone 1 g daily (05/10/2024) day 2 -Urine culture pending -Pain Management (Tylenol, [place] 5, Dilaudid 0.25) -Holding mycophenolate, given nephrotoxicity until SHAJI and UTI improved. #SHAJI on CKD 3a per Dr. Chappell who follows patient in clinic, baseline creatinine 1.2 thus creatinine 1.6 indicating an SHAJI. SHAJI on CKD. Previous US of kidneys showed moderate renal parenchymal scar formation. Plan -stop gentle hydration, patient is eating well -Avoid Nephrotoxins -Renally Dose Medication -Hold Mycophenolate #Hx of Kidney Transplant Past medical history of kidney transplant secondary to familial history. Patient is unaware of type of kidney disease, unable to state everything autosomal dominant kidney disease, [place] disease vs Fabry. Per patient extensive family history of kidney failure form mother to extended uncles as well. Plan -Continue cyclosporine and prednisone -Hold mycophenolate given high nephrotoxicity. -Consider KANG #Diabetes Mellitus Type 2, non insulin dependent Patient has a past medical history of diabetes mellitus on glipizide 10 twice daily. Previous admission 02/21/2024 showed A1c of 8.9. Plan -Monitor Fasting Glucose -Sliding Sclae #HTN Resume home medication of Metoprolol Tartrate 50 mg PO BID #HLD Statin medication no listed in home medication list. Diagnostics: Lipid Panel (07/24/2023): Triglycerides 185, Cholesterol 144, LDL 59, HDL 49-->ASCVD 2.9% of cardiovascular event in the next 10 years. Plan -Discuss w/ patient risk and benefits of Statins. Health Maintenance: Disp: Pt is currently admitted to floors for further management of Complicated UTI, awaiting urine cultures -->likely d/c tomorrow after urine cultures return FEN: Low carb consistent, renal diet DVT: on subQ heparin Code: Full Code - The patient's plan was discussed with attending Dr. Lynch and senior residents Dr. Zuleika Raygoza MD PGY1 Internal Medicine Attending Provider Attestation/Addendum I have discussed and was present for the essential components of the history, physical examination, diagnosis, and treatment plan with the resident. I agree with the patient's care as documented by the resident and amended herein by me. Sid Lynch, DO. Patient seen and evaluated this AM. Renal function improved, urine culture still pending, will continue IV antibiotics for now, likely DC on 05/12 pending urine culture results. Although this document has been carefully reviewed, there may still be some phonetic and other typographical errors. These errors are purely grammatical due to imperfections in the software program and should not be construed in any way to compromise the substance of the patient's medical care during this visit.
[2024-05-12] VITALS: BP 150/86; PULSE 57; RESP 15; TEMP 36.3; O2SAT 98
[2024-05-12 03:57] VITALS: PULSE 57
[2024-05-12 04:00] VITALS: BP 149/88; PULSE 60; RESP 15; TEMP 36.2; O2SAT 96
[2024-05-12 06:34] LABS: Basophils % (Auto) 0 % (0-2.5); Eosinophils # (Auto) 0.1 Thou/mm3 (0.0-0.5); Eosinophils % (Auto) 2 % (0-10); Hematocrit 33.4 % (36.0-46.0); Immature Granulocytes % (Auto) 1 % (0-0); Immature Granulocytes Auto 0.05 Thou/mm3 (0.00-0.00); Lymphocytes # (Auto) 1.9 Thou/mm3 (1.0-4.8); Lymphocytes % (Auto) 31 % (10-50); Mean Corpuscular HGB Conc 32.9 g/dl (31.0-37.0); Mean Corpuscular Hemoglobin 28.5 pg (25.0-35.0); Mean Corpuscular Volume 87 fL (80-100); Monocytes # (Auto) 0.6 Thou/mm3 (0.0-0.8); Monocytes % (Auto) 10 % (0-12); Neutrophils # (Auto) 3.3 Thou/mm3 (1.8-7.7); Neutrophils % (Auto) 56 % (37-80); Nucleated Red Blood Cell % 0 /100 WBC (0); Platelet Count 392 Thou/mm3 (140-440); RDW Standard Deviation 42.7 fL (36.4-46.3); Red Blood Count 3.86 Miln/mm3 (4.00-5.20)
[2024-05-12 07:31] LABS: Alanine Aminotransferase < 7 U/L (10-49); Albumin, Serum 4.1 gm/dL (3.5-5.0); Albumin/Globulin Ratio 1.5 (1.2-2.2); Alkaline Phosphatase 61 U/L (46-116); Anion Gap 6 (7-16); Aspartate Amino Transferase < 8 U/L (0-34); BUN/Creatinine Ratio 8 Ratio (12-20); Bilirubin,Total 0.4 mg/dL (0.3-1.2); Blood Urea Nitrogen 11 mg/dL (9-23); Calcium 9.3 mg/dL (8.3-10.6); Calcium (Corrected) 9.3 mg/dL (8.5-10.1); Carbon Dioxide 22.4 mMol/L (20.0-31.0); Chloride 106 mMol/L (98-107); Creatinine (Component) 1.3 mg/dL (0.6-1.3); Estimated Creatinine Clearance 53.6 mL/min (>60); Globulin 2.7 gm/dL (2.3-3.5); Glucose 187 mg/dL (74-106); Magnesium 1.8 mg/dL (1.6-2.6); Osmolality,Calculated 272 (275-295); Potassium 3.9 mMol/L (3.4-5.1); Sodium 134 mMol/L (136-145); Total Protein 6.8 gm/dL (5.7-8.2); eGFR 51 See Note
[2024-05-12 08:00] VITALS: BP 157/94; PULSE 80; RESP 17; TEMP 36.2; O2SAT 95
--- NOTE | 2024-05-12 08:04 | PD.RESDS ---
Planned Discharge Date 05/12/24 DS: Providers Provider Date of admission: 05/10/24 08:33 Primary care physician: ALONDRA Arellano Admitting Provider: Kai Lynch DO Attending Provider on Admission: Kai Lynch DO Consults: 05/10/24 07:23 Consult to Nephrology Stat Comment: UTI/PYELONEPHRITIS Consulting Provider: Tesfaye Chappell 05/10/24 08:42 Referral Registered Dietitian Routine Comment: Attending Provider on DC: Dr. Lynch Discharging Provider: Hardik Corral D.O. DS: Diagnosis Problem List Completed Was Problem List Reviewed/Reconciled?: Yes Hospital Course Hospital Course Hospital course: #Complicated Urinary Tract Infection #leukocytosis, improved #Nausea #SHAJI on CKD 3a #Hx of Kidney Transplant #Diabetes Mellitus Type 2, non insulin dependent #HTN #HLD Patient is a 44-year-old female with past medical history of hypertension, hyperlipidemia, DM type II [id number], CKD 3B status post renal transplant 2010 on cyclosporine, prednisone, mycophenolat presented to the emergency room on 05/10 with chief complaint of increased urge, increase in station of bladder fullness and nausea. UA Estrace positive WBC 470. Vital signs were stable in ED. Renal ultrasound showed moderate renal parenchymal scar formation. Patient was admitted for complicated UTI. Over the course of patient's hospital stay patient was appropriately treated with antibiotics. UA culture grew E. coli which is sensitive to ciprofloxacin. Patient will be discharged charged with ciprofloxacin. Patient's symptoms resolved at time of discharge. Patient advised to follow-up with primary care provider as well as weather anchor upon discharge. Patient advised to return to the emergency department if symptoms recur or worsen. Patient is agreeable. Status at Discharge Cognitive/behavioral status at discharge: Patient is stable at time of discharge Time Spent with Patient Time attestation: Total time spent providing and/or coordinating discharge services: Exam Vital Signs Temp Pulse Resp BP Pulse Ox O2 Del Method 97.2 F 60 15 149/88 H 96 Room Air 05/12/24 04:00 05/12/24 04:00 05/12/24 04:00 05/12/24 04:00 05/12/24 04:00 05/12/24 04:00 Narrative Exam General Appearance: Alert & Oriented X3, well-nourished female who is lying in bed in no acute distress HEENT: Skull symmetrical and atraumatic. Conjunctivae pin and moist. Pupils equal, round, reactive to light and accommodation (PERRL). External ear without lesion or discharge. Straight, nares patient, mucosa pink, no discharge. No thyroid nodule appreciated. No cervical lymphadenopathy. Cardio: Normal Rate and Rhythm with S1 and S2 heart sounds. No murmurs or extra heart sounds auscultated. No bruits on carotid auscultation. No peripheral edema or cyanosis. Lungs: Symmetric with good expansion. Chest and back non-tender. Breath sounds vesicular without crackles, wheezing or rhonchi Abdomen: Non-tender, Non-distended, Normal Reactive Bowel Sounds, costophrenic angle-tenderness improved. Neuro: Alert, cooperative, oriented to person, place, and time. Speech clear. CN grossly intact. Upper motor strength 5/5 and Lower motor strength 5/5. Sensation intact. Discharge Plan Plan Patient Disposition: HOME (Self Care) Care Plan Goals: Please continue new medications as directed: Ciprofloxacin 500 mg twice a day for 3 days Please follow-up with your primary care provider within 7 days of discharge. If you do not have a primary care provider you can follow-up with [facility] at [address], [address] [place] [phone] Please follow-up with your weather anchor within 7 days discharge Continue chemotherapy medications upon discharge Please return to the emergency department if your symptoms persist or worsen Prescriptions/Referrals Prescriptions/Med Rec: New ciprofloxacin HCl [Cipro] 500 mg tablet 500 mg PO Q12H Qty: 6 0RF Rx Instructions: 500 mg q12hr PO for three days Continued glipizide [Glucotrol XL] 10 mg Tablet Extended Release 24hr 10 mg PO BID prednisone 2.5 mg tablet 2.5 mg PO DAILY metoprolol tartrate 50 mg Tablet 50 mg PO BID mycophenolate sodium 180 mg tablet,delayed release (/EC) 540 mg PO BID cyclosporine modified 100 mg capsule 100 mg PO BID Referrals: Kris Mccurdy FNP [Primary Care Provider] - Patient/Caregiver Discharge Instructions Other Discharge Activity Instructions:: Please continue new medications as directed: Ciprofloxacin 500 mg twice a day for 3 days Please follow-up with your primary care provider within 7 days of discharge. If you do not have a primary care provider you can follow-up with [facility] at [address] [facility] [id number] Please follow-up with your weather anchor within 7 days discharge Please return to the emergency department if your symptoms persist or worsen Education Materials: Urinary Tract Infections in Women, Understanding Urinary Tract ..., After Kidney Transplant Print Language: Bulgarian Stand Alone Forms: Lo Award Info., Patient Portal Info Letter Discharge Order Discharge Orders: Discharge (Routine); Ordered 05/12/24 Ordered By: Cayetano Nelson Quality Discharge Quality Measures VTE prophylaxis Attestestation Attestation I have discussed and was present for the essential components of the discharge history, physical examination, diagnosis, and discharge treatment plan with the resident. I agree with the patient's discharge care as documented by the resident and amended herein by me. Sid Lynch DO. The patient understood all discharge instructions, all questions were answered satisfactorily. The patient was instructed to return to the Emergency Department is symptoms worsened or persisted. Patient will be discharged on a short course of ciprofloxacin for 3 additional days for urinary tract infection/pyelonephritis secondary to pansensitive E. coli. Patient was stable, afebrile, tolerating p.o. intake and ambulatory time of discharge. Patient instructed to resume all of her immunosuppressive medications upon arriving home and follow-up with her weather anchor and primary care physician within 1 week of discharge. Although this document has been carefully reviewed, there may still be some phonetic and other typographical errors. These errors are purely grammatical due to imperfections in the software program and should not be construed in any way to compromise the substance of the patient's medical care during this visit.
[2024-05-12] MEDS: cefTRIAXone/D5w 1gm IV premix 50 ML IV (08:17)
[2024-05-12 08:18] VITALS: BP 157/94; PULSE 80
[2024-05-12] MEDS: METOPROLOL TARTRATE 25 MG TABLET 50 MG PO (08:18)
[2024-05-12] MEDS: predniSONE 5 MG TABLET 2.5 MG PO (08:24)
[2024-05-12] MEDS: INSULIN LISPRO (AdmeLOG) 1 UNIT/0.01 ML UNIT SC (08:25)
--- NOTE | 2024-05-12 08:25 | PC.NURSE ---
Patient requested to get only 1 unit of Insulin. Explained to patient the hospital protocol on insulin. patient Still refused and requested only 1 unit. Will continue to monitor.
== END 2024-05-12 10:15 | disposition home or self-care (01) | DRG 463 ==
LOC: SERX 07:22 → SERHOLD 08:51 → S3NX 13:41
PROVIDERS: Emergency Medicine; Physician Assistant; Student in an Organized Health Care Education/Training Program; Admitting Provider Student in an Organized Health Care Education/Training Program; Emergency Provider Emergency Medicine; PCP Nurse Practitioner; Visit Provider Student in an Organized Health Care Education/Training Program
DX: N39.0 Urinary tract infection, site not specified (principal); Z94.0 Kidney transplant status; I12.9 Hypertensive chronic kidney disease with stage 1 through stage 4 chronic kidney disease, or unspecified chronic kidney disease; N18.32 Chronic kidney disease, stage 3b; E11.22 Type 2 diabetes mellitus with diabetic chronic kidney disease; E78.5 Hyperlipidemia, unspecified; B96.20 Unspecified Escherichia coli [E. coli] as the cause of diseases classified elsewhere
CPT/HCPCS: 36415; 71045; 80053; 81001; 81025; 83605; 83615; 83690; 83735; 83880; 84100; 84145; 84484; 85025; 85610; 85730; 87040; 87077; 87086; 87186; 87811; 93225; 94762; J0696; J1450; J1643; J1815; J2270; J2405; J3475; J3490; J7030; J7512; J7515; J7999; A9270

== ENCOUNTER 2024-06-06 01:55 | Emergency (ER) | payer MEDICAID, SELFPAY ==
[2024-06-06 02:04] VITALS: BP 163/87; PULSE 93; RESP 18; TEMP 36.7; O2SAT 97; BMI 31.8
--- NOTE | 2024-06-06 02:13 | XR_ITS ---
Examination: Bilateral hands, 6 views. Technique: AP, Oblique, Lateral each hand total 6 views Date and time of exam: June 06, 2024 0220 hours INDICATIONS: Patient fell today with injury to both hands, bilateral hand pain Findings: Acute fractures distal phalanx left third digit without significant displacement Normal right hand fractures noted No opaque foreign bodies IMPRESSION: Acute fractures distal phalanx left third digit without significant displacement
--- NOTE | 2024-06-06 02:14 | EDRME_ITS ---
Rapid Medical Screening Exam [facility] Arrival date/time: 06/06/24 01:55 44-year-old female with past medical history of kidney transplant presents emergency department complaining of bilateral finger pain after suffering ground-level fall. Chief Complaint: Fall Vital signs: Vital Signs Temperature 98.1 F 06/06/24 02:04 Pulse Rate 93 06/06/24 02:04 Respiratory Rate 18 06/06/24 02:04 Blood Pressure 163/87 H 06/06/24 02:04 Pulse Oximetry (%) 97 06/06/24 02:04 Oxygen Delivery Method Room Air 06/06/24 02:04 Vital signs reviewed by provider: Yes
[2024-06-06] MEDS: KETOROLAC INJ 60 MG/2 ML VIAL 30 MG IM (02:36)
--- NOTE | 2024-06-06 03:39 | PD.EDUPEX ---
Upper Extremity Injury RME/HPI General Chief Complaint: Fall Stated Complaint: Bruised fingers after Fall Time Seen by Provider: 06/06/24 02:14 Source: patient Arrival date/time: 06/06/24 01:55 44-year-old female with past medical history of kidney transplant presents emergency department complaining of bilateral finger pain after suffering ground-level fall. Patient denies any LOC or injury to head or neck. Patient complaining of pain to bilateral fingers of both hands. Patient reports thinks she hurt fingers when she attempted to grab the door when she felt like she was going to fall. Patient GCS of 15 with steady gait. Mode of arrival: ambulatory Limitations: no limitations RME / HPI RME / HPI narrative: 06/06/24 01:55 44-year-old female with past medical history of kidney transplant presents emergency department complaining of bilateral finger pain after suffering ground-level fall. Related Data Home Medications ?Medication ?Instructions ?Recorded ?Confirmed cyclosporine modified 100 mg 100 mg PO BID 08/11/22 05/10/24 capsule glipizide 10 mg tablet, extended 10 mg PO BID 08/11/22 05/10/24 release 24 hr (Glucotrol XL) metoprolol tartrate 50 mg tablet 50 mg PO BID 08/11/22 05/10/24 mycophenolate sodium 180 mg 540 mg PO BID 08/11/22 05/10/24 tablet,delayed release prednisone 2.5 mg tablet 2.5 mg PO DAILY 08/11/22 05/10/24 Previous Rx's ?Medication ?Instructions ?Recorded ciprofloxacin HCl 500 mg tablet 500 mg PO Q12H urinary tract 05/12/24 (Cipro) infection #6 tabs tramadol 50 mg tablet 50 mg PO QDAY 3 days #3 tabs 06/06/24 Allergies Allergy/AdvReac Type Severity Reaction Status Date / Time codeine Allergy Severe Rash Verified 02/21/24 12:27 Fish Containing Products Allergy Severe Difficulty Verified 02/21/24 12:27 Breathing vancomycin Allergy Severe RASH Verified 02/21/24 12:27 Review of Systems Review of Systems Systems Reviewed: All systems reviewed, normal except as documented Constitutional Constitutional: Reports system reviewed and no additional complaints, except as documented, Denies body ache(s), Denies chills and Denies fever(s) Eyes Eyes: Reports system reviewed and no additional complaints, except as documented and Denies change in vision ENT Ears, Nose, Mouth, and Throat: Reports system reviewed and no additional complaints, except as documented, Denies disequilibrium, Denies dizziness, Denies sore throat and Denies vertigo Cardiovascular Cardiovascular: Reports system reviewed and no additional complaints, except as documented, Denies chest pain and Denies dyspnea Respiratory Respiratory: Reports system reviewed and no additional complaints, except as documented, Denies chest congestion, Denies cough and Denies dyspnea Gastrointestinal Gastrointestinal: Reports system reviewed and no additional complaints, except as documented, Denies abdominal pain, Denies nausea and Denies vomiting Musculoskeletal Musculoskeletal: Reports system reviewed and no additional complaints, except as documented, Denies abnormal gait and Reports arthralgias Integumentary/Breasts Skin/Breast: Reports system reviewed and no additional complaints, except as documented, Denies erythema, Denies rash and Denies wounds Neurologic Neurologic: Reports system reviewed and no additional complaints, except as documented, Denies abnormal gait, Denies disequilibrium, Denies dizziness and Denies vertigo Past Medical History Past Medical History NEUROLOGIC: Negative Neurological Disorders CARDIAC: Positive Cardiac Disorders and Hypertension; Negative Congestive Heart Failure RESPIRATORY: Negative Chronic Obstructive Pulmonary Disease (COPD) or Asthma GASTROINTESTINAL: Negative Gastrointestinal Disorders GENITOURINARY: Positive Genitourinary Disorders and Renal Disease (left kidney transplant) REPRODUCTIVE: Negative Pelvic Inflammatory Disease MUSCULOSKELETAL: Negative Musculoskeletal Disorders ENDOCRINE: Positive Endocrine Disorders and Diabetes Mellitus Type 2; Negative Diabetes Mellitus Type 1 HEMATOLOGIC: Negative Blood Disorders or Sickle Cell Disease OTHER HISTORY: Positive Blood Transfusions and Organ Transplant (left kidney) Surgical History SURGICAL: Positive Organ Transplant (left kidney) Social History SMOKING STATUS: Former smoker SECOND HAND EXPOSURE: No ED Exam General Limitations: Present no limitations General appearance: Present alert and in no apparent distress Head Head exam: Present atraumatic Eye Eye exam: Present normal appearance, PERRL and EOMI ENT ENT exam: Present normal exam, normal oropharynx and mucous membranes moist Neck Neck exam: Present normal inspection, full ROM and trachea midline Chest Chest inspection: Present normal inspection and symmetric chest wall rise Respiratory Respiratory exam: Present normal lung sounds bilaterally Cardiovascular Cardiovascular exam: Present regular rate, normal rhythm and normal heart sounds Abdominal Exam Abdominal exam: Present soft and normal bowel sounds Extremities Exam Extremities exam: Present normal inspection and full ROM Expanded Upper Extremity Exam Elbow exam: Present full ROM Forearm/Wrist exam: Present full ROM Hand exam: Present full ROM Hand L/R front image:  1. other (Bruising left 2 through 5 digits) 2. other (Bruising right hand digits 2 through 5.) Vascular exam: Normal capillary refill Back Exam Back exam: Present normal inspection and full ROM Neurological Exam Neurological exam: Present alert, oriented X3 and CN II-XII intact Psychiatric Psychiatric exam: Present normal affect and normal mood Skin Skin exam: Present warm, dry, intact and normal color Course Quality Measures none Orders Category Date Time Status Splint / Immobilizer STAT Care 06/06/24 03:40 Active XR hand comp BI min 3V Stat Exams 06/06/24 02:13 Taken Ketorolac Inj [Toradol Inj] Med 06/06/24 02:13 Discontinued 30 mg IM X1 ONE traMADol HCL [Ultram] Med 06/06/24 03:51 Discontinued 50 mg PO X1 ONE Vital Signs Vital signs: Vital Signs Temperature 98.1 F 06/06/24 02:04 Pulse Rate 93 06/06/24 02:04 Respiratory Rate 18 06/06/24 02:04 Blood Pressure 163/87 H 06/06/24 02:04 Pulse Oximetry (%) 97 06/06/24 02:04 Oxygen Delivery Method Room Air 06/06/24 02:04 97% room air within normal limits Procedures -ED Splint Fabrication: Pre-Fabricated Type: Finger Protector Reason for Splint: Optimal Positioning, Minimize Deformities and Prevent Deformities Site condition: Bruised Modifications: Finger splint applied to right fourth digit and left third digit Circulation Distal to Splint: Yes Movement Distal to Splint: Yes Senation Distal to Splint: Yes Tolerance: Tolerates Well Extremity Injury MDM Narrative MDM Narrative:: 44-year-old female with past medical history of kidney transplant presents emergency department complaining of bilateral finger pain after suffering ground-level fall. Patient denies any LOC or injury to head or neck. Patient complaining of pain to bilateral fingers of both hands. Patient reports thinks she hurt fingers when she attempted to grab the door when she felt like she was going to fall. Patient GCS of 15 with steady gait. Affected extremities are neurovascularly intact. No obvious deformities to digits of either right or left hand. X-ray of bilateral hands was obtained and based on my interpretation observed right fourth proximal phalanx fracture without displacement and left third distal phalanx fracture. Finger splint applied to fourth and third digit patient tolerated well. Patient advised to follow-up with on-call orthopedic surgeon Dr. Bliss or follow-up with primary care provider and request referral to orthopedic surgeon of your choosing. Instructed to return to emergency department for any worsening symptoms or as needed. Patient data External records reviewed:: [facility] previous records Clinical information provided by:: patient Social determinants that could affect healthcare access:: none Patient has the following chronic illnesses:: See chart How is presenting disease/condition affected by chronic disease/condition?: uneffected by Evaluation data The following diagnostics were reviewed and interpreted by me:: radiology exam(s) Lab and/or radiology exams considered but not ordered:: Ordered Interpretation Summary: Interpreted by me Medications / Prescriptions Medications or Prescriptions considered but not ordered:: Ordered Medication administrations:: Medication Administration History Discontinued Medications Ketorolac Tromethamine (Ketorolac Inj 60 Mg/2 Ml Vial) 30 mg IM X1 ONE Stop: 06/06/24 02:14 Last Admin: 06/06/24 02:36 Dose: 30 mg Documented By: NEELIMA Comments: Tramadol HCl (Tramadol Hcl 50 Mg Tablet) 50 mg PO X1 ONE Stop: 06/06/24 03:52 Given Consultations Consultation(s) initiated? (list below): No Diagnosis Upper Extremity Injury Differential Diagnosis: finger sprain, dislocation of finger and fracture of hand Most likely diagnosis given after review of the tests above:: Finger fracture right Finger fracture left Admission Indicated Admission indicated?: not indicated Admission Request Was there a request for admission?: No Disposition Plan Disposition Plan: Discharge Discharge Attestation Discharge Attestation: The patient and all family members were given an opportunity to ask questions and understood the discharge instructions. Discharge instructions specifically effects, indications for sooner follow up or return to the emergency department, and the expected course of current diagnosis. Patient condition: Stable Discharge Plan Plan Patient Disposition: HOME (Self Care) Disposition Comment: Stable Prescriptions/Referrals Prescriptions/Med Rec: New tramadol 50 mg tablet 50 mg PO QDAY 3 Days Qty: 3 0RF No Action ciprofloxacin HCl [Cipro] 500 mg tablet 500 mg PO Q12H Qty: 6 0RF Rx Instructions: 500 mg q12hr PO for three days glipizide [Glucotrol XL] 10 mg Tablet Extended Release 24hr 10 mg PO BID prednisone 2.5 mg tablet 2.5 mg PO DAILY metoprolol tartrate 50 mg Tablet 50 mg PO BID mycophenolate sodium 180 mg tablet,delayed release (DR/EC) 540 mg PO BID cyclosporine modified 100 mg capsule 100 mg PO BID Referrals: Ishan Bliss MD [Physician] - 06/07/24 10:00 am Problem List Clinical Impression: Finger fracture, right, Finger fracture, left Patient/Caregiver Discharge Instructions Discharge Activity: activity as tolerated Education Materials: How Bones Heal, ED Fracture, Finger, Closed Additional Instructions: Take pain medication as prescribed. Monitor affected finger for increased pain swelling or loss of sensation. Follow-up with Dr. Bliss in his office on at 10 AM. Return to emergency department for any increased pain, swelling, loss of sensation or as needed. Print Language: Ukrainian Stand Alone Forms: Lo Award Info., Patient Portal Info Letter PA/ALONDRA Supervising Physician PA/ALONDRA Supervising Physician: Dr. Nunn
[2024-06-06] MEDS: traMADol HCL 50 MG TABLET PO (03:59)
== END 2024-06-06 04:04 | disposition home or self-care (01) ==
LOC: SERX 06:13
PROVIDERS: Emergency Provider Emergency Medicine; PCP Internal Medicine
DX: S62.614A Displaced fracture of proximal phalanx of right ring finger, initial encounter for closed fracture (principal); S62.633A Displaced fracture of distal phalanx of left middle finger, initial encounter for closed fracture; E11.9 Type 2 diabetes mellitus without complications; I10 Essential (primary) hypertension; Z94.0 Kidney transplant status; Z87.891 Personal history of nicotine dependence; Z88.5 Allergy status to narcotic agent; W18.30XA Fall on same level, unspecified, initial encounter
CPT/HCPCS: 73130; 96372; 99283; J1885; A9270

== ENCOUNTER 2024-09-17 18:59 | Observation (INO) | payer MEDICAID, SELFPAY ==
[2024-09-17 19:00] VITALS: BMI 30.1
[2024-09-17 19:06] VITALS: BP 162/90; PULSE 103; RESP 20; TEMP 36.6; O2SAT 98
--- NOTE | 2024-09-17 19:14 | EDRME_ITS ---
Rapid Medical Screening Exam [facility] Arrival date/time: 09/17/24 18:59 Chief Complaint: Fever Time Seen by Provider: 09/17/24 19:06 Vital signs: Vital Signs Temperature 97.9 F 09/17/24 19:06 Pulse Rate 103 H 09/17/24 19:06 Respiratory Rate 20 09/17/24 19:06 Blood Pressure 162/90 H 09/17/24 19:06 Pulse Oximetry (%) 98 09/17/24 19:06 Oxygen Delivery Method Room Air 09/17/24 19:06 Pulse ox 98% room air Vital signs reviewed by provider: Yes RME Narrative: 44-year-old female presents plaint of burning sensation on urination with a fev er that began approximately 2 days ago. Patient is a kidney transplant and tells me this occurs every 5 months, she is admitted for IV antibiotics.
[2024-09-17 20:04] LABS: Basophils # (Auto) 0.1 Thou/mm3 (0.0-0.2); Basophils % (Auto) 0 % (0-2.5); Eosinophils # (Auto) 0.1 Thou/mm3 (0.0-0.5); Eosinophils % (Auto) 0 % (0-10); Hematocrit 39.2 % (36.0-46.0); Hemoglobin 13.1 g/dL (12.0-16.0); Immature Granulocytes % (Auto) 1 % (0-0); Immature Granulocytes Auto 0.07 Thou/mm3 (0.00-0.00); Lymphocytes # (Auto) 1.1 Thou/mm3 (1.0-4.8); Lymphocytes % (Auto) 8 % (10-50); Mean Corpuscular HGB Conc 33.4 g/dl (31.0-37.0); Mean Corpuscular Hemoglobin 29.2 pg (25.0-35.0); Mean Corpuscular Volume 88 fL (80-100); Monocytes % (Auto) 7 % (0-12); Neutrophils % (Auto) 83 % (37-80); Nucleated Red Blood Cell % 0 /100 WBC (0); Platelet Count 364 Thou/mm3 (140-440); RDW Standard Deviation 43.8 fL (36.4-46.3); Red Blood Count 4.48 Miln/mm3 (4.00-5.20); White Blood Count 13.2 Thou/mm3 (3.6-11.0)
[2024-09-17 20:33] LABS: Alanine Aminotransferase 9 U/L (10-49); Albumin, Serum 4.5 gm/dL (3.5-5.0); Albumin/Globulin Ratio 1.6 (1.2-2.2); Alkaline Phosphatase 57 U/L (46-116); Anion Gap 9 (7-16); Aspartate Amino Transferase 13 U/L (0-34); BUN/Creatinine Ratio 12 Ratio (12-20); Bilirubin,Total 0.8 mg/dL (0.3-1.2); Blood Urea Nitrogen 18 mg/dL (9-23); Carbon Dioxide 24.8 mMol/L (20.0-31.0); Chloride 102 mMol/L (98-107); Creatinine (Component) 1.5 mg/dL (0.6-1.3); Estimated Creatinine Clearance 46.1 mL/min (>60); Globulin 2.9 gm/dL (2.3-3.5); Glucose 169 mg/dL (74-106); Osmolality,Calculated 277 (275-295); Potassium 4.1 mMol/L (3.4-5.1); Sodium 136 mMol/L (136-145); Total Protein 7.4 gm/dL (5.7-8.2); eGFR 43 See Note
[2024-09-17 22:38] LABS: Collection Type, Urine Clean Catch
[2024-09-17 22:44] LABS: HCG Qualitative,Urine Negative
[2024-09-17] MEDS: HYDROcodone/APAP 7.5/325 TABLET 1 TAB PO (23:03)
[2024-09-17 23:19] LABS: Bacteria,Urine Rare; Bilirubin,Urine Negative (Negative); Blood,Urine 1+ (Negative); Clarity,Urine Turbid (Clear/Hazy); Color,Urine Lt-Yellow (Lt Yel-Yel); Culture Indicated,Urine Yes; Glucose, Urine 2+ (Negative); Ketones,Urine Negative (Negative); Leukocyte Esterase,Urine Positive (Negative); Nitrite,Urine Negative (Negative); PH,Urine 6.5 (5.0-7.0); Protein,Urine Trace (Neg - Trace); RBC,Urine 15 /hpf (0-3); Specific Gravity,Urine 1.011 (1.001-1.035); Squamous Epithelial Cell,Urine 2 /hpf (0-5); Urobilinogen,Urine Negative mg/dL (0.0-1.0); WBC,Urine 269 /hpf (0-5)
[2024-09-17 23:58] VITALS: BP 135/89; PULSE 97; RESP 18; TEMP 39.3; O2SAT 96
[2024-09-18] VITALS (19 sets, daily range): BP systolic 119–156; BP diastolic 67–95; PULSE 69–102; RESP 16–99; TEMP 36.7–38.2; O2SAT 95–99; BMI 30.9
[2024-09-18 00:57] LABS: Procalcitonin 0.17 ng/ml (0.0-0.49)
--- NOTE | 2024-09-18 01:25 | PD.EDFEVER ---
ED Fever RME/HPI General Chief Complaint: Fever Stated Complaint: FEVER SINCE LAST NIGHT; UTI [id number] HR Time Seen by Provider: 09/17/24 19:06 Arrival date/time: 09/17/24 18:59 RME / HPI RME / HPI Narrative: 44-year-old female presents plaint of burning sensation on urination with a fever that began approximately 2 days ago. Patient is a kidney transplant and tells me this occurs every 5 months, she is admitted for IV antibiotics. ------- Dr. Polanco?s Main ED Evaluation: 44yo female with a history of kidney transplant (2010) presents to the ED for a chief complaint of UTI symptoms. Patient states she's had dysuria, frequency, a headache, fever, back pain, and generalized body aches for the last 2 days. Patient states these symptoms occur every 5-6 months and has to get admitted. Patient reports associated nausea. She denies any vomiting, abdominal pain, cough or any other associated symptoms. Related Data Home Medications ?Medication ?Instructions ?Recorded ?Confirmed cyclosporine modified 100 mg 100 mg PO BID 08/11/22 05/10/24 capsule glipizide 10 mg tablet, extended 10 mg PO BID 08/11/22 05/10/24 release 24 hr (Glucotrol XL) metoprolol tartrate 50 mg tablet 50 mg PO BID 08/11/22 05/10/24 mycophenolate sodium 180 mg 540 mg PO BID 08/11/22 05/10/24 tablet,delayed release prednisone 2.5 mg tablet 2.5 mg PO DAILY 08/11/22 05/10/24 Previous Rx's ?Medication ?Instructions ?Recorded ciprofloxacin HCl 500 mg tablet 500 mg PO Q12H urinary tract 05/12/24 (Cipro) infection #6 tabs Allergies Allergy/AdvReac Type Severity Reaction Status Date / Time codeine Allergy Severe Rash Verified 09/17/24 19:03 Fish Containing Products Allergy Severe Difficulty Verified 09/17/24 19:03 Breathing vancomycin Allergy Severe RASH Verified 09/17/24 19:03 Review of Systems Review of Systems Systems Reviewed: All systems reviewed, normal except as documented Past Medical History Past Medical History NEUROLOGIC: Negative Neurological Disorders CARDIAC: Positive Cardiac Disorders and Hypertension; Negative Congestive Heart Failure RESPIRATORY: Negative Chronic Obstructive Pulmonary Disease (COPD) or Asthma GASTROINTESTINAL: Negative Gastrointestinal Disorders GENITOURINARY: Positive Genitourinary Disorders and Renal Disease (left kidney transplant) REPRODUCTIVE: Negative Pelvic Inflammatory Disease MUSCULOSKELETAL: Negative Musculoskeletal Disorders ENDOCRINE: Positive Endocrine Disorders and Diabetes Mellitus Type 2; Negative Diabetes Mellitus Type 1 HEMATOLOGIC: Negative Blood Disorders or Sickle Cell Disease OTHER HISTORY: Positive Blood Transfusions and Organ Transplant (left kidney) Surgical History SURGICAL: Positive Organ Transplant (left kidney) Social History SMOKING STATUS: Never smoker SECOND HAND EXPOSURE: No Physical Exam Narrative Physical exam: GENERAL APPEARANCE: alert and oriented x 4, well-developed, well-nourished, no acute distress VITALS: All vitals were reviewed and the pulse ox is 96% on room air, which is normal according to my interpretation. HEENT: Normocephalic, atraumatic; pupils equal, round, reactive to light; EOMI; mucous membranes pink, moist; oropharynx clear NECK: Supple LUNGS: CTABL; no wheezes, no rales, no rhonchi HEART: Regular rate, regular rhythm; normal S1, S2; no murmurs ABDOMEN: non distended; normal BS; soft, no tenderness, no guarding, no rebound; no masses, no organomegaly, no hernia BACK: no CVA tenderness EXTREMITIES: atraumatic; no edema NEUROLOGIC: awake; alert and oriented x4; cranial nerves II-XII grossly intact; no focal sensory or motor deficits PSYCHIATRIC: appropriate mood and affect SKIN: warm, dry, normal color; no rashes Course Quality Measures Possible source: genitourinary Blood cultures ordered: yes Antibiotic ordered: Yes Pertinent labs: 09/18/24 00:22 Lactic Acid 1.0 mMol/L (0.4-2.0) Procalcitonin 0.17 ng/ml (0.0-0.49) sepsis Orders Category Date Time Status Dietetic Technician NOW Care 09/18/24 01:34 Active Continuous Pulse Oximetry NOW Care 09/18/24 01:34 Completed IV [Insert IV] NOW Care 09/18/24 01:34 Active Blood Culture (Lab) Stat Lab 09/18/24 00:19 Received CBC Stat Lab 09/17/24 19:52 Completed CMP [Comprehensive Metabolic Panel] Stat Lab 09/17/24 19:52 Completed HCG Qualitative,Urine Stat Lab 09/17/24 22:33 Completed Lactate (Lactic Acid) Stat Lab 09/18/24 00:22 Completed Procalcitonin Stat Lab 09/18/24 00:22 Completed UA, C/S IF [Urinalysis, C/S if Indicated] Stat Lab 09/17/24 22:33 Completed Urine Culture Stat Lab 09/17/24 22:33 Received Acetaminophen Tab [Tylenol Tab] Med 09/18/24 01:44 Discontinued 650 mg PO X1 ONE HYDROcodone*/APAP 7.5/325 [[place] 7.5/325] Med 09/17/24 22:51 Discontinued 1 tab PO X1 ONE Ketorolac Inj [Toradol Inj] Med 09/18/24 01:44 Discontinued 30 mg IVP X1 ONE Sodium Chloride 0.9% 1000 ml [Ns] 1,000 ml Med 09/18/24 01:35 Discontinued IV 999 mls/hr cefTRIAXone/D5w 1gm IV premix [Rocephin/D5w 1gm IV Med 09/18/24 01:35 Discontinued premix] 1 gm in 50 ml IV X1 Vital Signs Vital signs: Vital Signs Temperature 97.9 F 09/17/24 19:06 Pulse Rate 103 H 09/17/24 19:06 Respiratory Rate 20 09/17/24 19:06 Blood Pressure 162/90 H 09/17/24 19:06 Pulse Oximetry (%) 98 09/17/24 19:06 Oxygen Delivery Method Room Air 09/17/24 19:06 Fever MDM Narrative MDM Narrative:: Scribe Attestation: 09/18/24 - Jessica Foster am scribing for and in the presence of Dr. Polanco. 2358: Sepsis alert initiated. Orders made at this time are congruent with ED Adult Sepsis Order List. Re-evaluation is to be completed. 0258: NS IVF infused. 0258: Discussed case with the resident physician, attending Dr. Stephens from Hospitalist service regarding admission. Discussed patients ED course, exam findings, labs, and radiology results. The Hospitalist agrees to accept the patient for admission. Patient data External records reviewed:: [facility] previous records (Per chart review, patient was admitted here on 05/10/24 for UTI, pyelonephritis, pneumonia, hypophosphatemia.) Clinical information provided by:: patient Social determinants that could affect healthcare access:: none Patient has the following chronic illnesses:: DM, HTN, kidney transplant How is presenting disease/condition affected by chronic disease/condition?: uneffected by Evaluation data The following diagnostics were reviewed and interpreted by me:: lab results Lab and/or radiology exams considered but not ordered:: none Interpretation Summary: WBC 13.2, Creatinine 1.5 (which is chronic), Glucose 169, Lactic Acid is normal, Procalcitonin is normal, UA is positive for a UTI, HCG is negative, according to my interpretation. Medications / Prescriptions Medications or Prescriptions considered but not ordered:: none Medication administrations:: Medication Administration History Discontinued Medications Acetaminophen (Acetaminophen 325 Mg Tablet) 650 mg PO X1 ONE Stop: 09/18/24 01:45 Last Admin: 09/18/24 01:57 Dose: 650 mg Documented By: EF Hydrocodone Bitart/Acetaminophen (Hydrocodone/Apap 7.5/325 Tablet) 1 tab PO X1 ONE Stop: 09/17/24 22:52 Last Admin: 09/17/24 23:03 Dose: 1 tab Documented By: CVL Ceftriaxone Sodium/Dextrose (Rocephin/D5w 1gm Iv Premix) 1 gm in 50 mls @ 100 mls/hr IV X1 ONE Stop: 09/18/24 02:04 Last Infusion: 09/18/24 02:27 Dose: Infused Documented By: Admin: 09/18/24 01:57 Dose: 100 mls/hr Documented By: EF Sodium Chloride (Ns) 1,000 mls @ 999 mls/hr IV .Q1H1M ONE Stop: 09/18/24 02:35 Last Infusion: 09/18/24 02:58 Dose: Infused Documented By: Admin: 09/18/24 01:57 Dose: 999 mls/hr Documented By: EF Ketorolac Tromethamine (Ketorolac Inj 30 Mg/Ml Vial) 30 mg IVP X1 ONE Stop: 09/18/24 01:45 Last Admin: 09/18/24 01:58 Dose: 30 mg Documented By: EF see above Consultations Consultation(s) initiated? (list below): Yes Diagnosis Fever Differential Diagnosis: other (UTI, pyelonephritis, sepsis, septic shock) Most likely diagnosis given after review of the tests above:: UTI, sepsis Admission Indicated Admission indicated?: indicated Admission Request Was there a request for admission?: Yes Admission Attestation Admission request attestation: Discussed case with [] from Hospitalist service regarding admission. Discussed patients ED course, exam findings, labs, and radiology results. The Hospitalist [agrees,declines] to accept the patient for admission. Disposition Plan Disposition Plan: Admit Discharge Plan Plan Patient Disposition: Admit Acute Care w/in Hospital Prescriptions/Referrals Prescriptions/Med Rec: No Action ciprofloxacin HCl [Cipro] 500 mg tablet 500 mg PO Q12H Qty: 6 0RF Rx Instructions: 500 mg q12hr PO for three days glipizide [Glucotrol XL] 10 mg Tablet Extended Release 24hr 10 mg PO BID prednisone 2.5 mg tablet 2.5 mg PO DAILY metoprolol tartrate 50 mg Tablet 50 mg PO BID mycophenolate sodium 180 mg tablet,delayed release (DR/EC) 540 mg PO BID cyclosporine modified 100 mg capsule 100 mg PO BID Referrals: No Primary/Family,Physician [Primary Care Provider] - In 1 week Problem List Clinical Impression: UTI (urinary tract infection), Sepsis Patient/Caregiver Discharge Instructions Print Language: Burkinan Stand Alone Forms: Lo Award Info., Patient Portal Info Letter
[2024-09-18] MEDS: cefTRIAXone/D5w 1gm IV premix 1 GM/50 ML BAG IV (01:57)
[2024-09-18] MEDS: ACETAMINOPHEN 325 MG TABLET 650 MG PO ×2 (01:57→09:13)
[2024-09-18] MEDS: SODIUM CHLORIDE 0.9% 1000 ML 1,000 ML 999 ML IV (01:57)
[2024-09-18] MEDS: KETOROLAC INJ 30 MG/ML VIAL IVP (01:58)
--- NOTE | 2024-09-18 03:21 | ESHP_ITS ---
<Statement entered by Benjie Stephens MD - 09/18/24 13:16> I have discussed and was present for the essential components of the history, physical examination, diagnosis, and treatment plan with the resident. I agree with the patient's care as documented by the resident and amended herein by me. Benjie Stephens MD FACP. Documentation for date of: 09/18/24 HPI History of Present Illness Chief complaint: UTI History of present illness: Kaylyn Wright is 44 yr female with PMH of CKD 3 s/p kidney transplant, hypertension, diabetes, frequent UTIs with chief complaint of UTI . She endorses increased urinary frequency, pressure, burning since Tuesday. Also endorses headache, fever that started Tuesday night. Patient took some Tylenol which helped with fever but did not improve symptoms of urination. Has approximately 2?3 UTIs per year since her kidney transplant. Endorses decreased appetite. Patient sees transplant specialist who had started her on daily low- dose antibiotic. However that caused her to have frequent yeast infections and thus discontinued. She has frequent admissions to the hospital for UTI treatment with IV antibiotics. Urine cultures typically positive for E. coli, no noticeable history of ESBL. She denies chest pain, abdominal pain, back pain. In ED, BP 162/90, HR 103, RR 20, temperature 100.8. Leukocytosis 13, BUN 18, creatinine 1.5 (appears to be around baseline). Glucose 169, lactic acid 1.0. UA positive for UTI with leukocyte esterase, WBC 270. She was given [place], ceftriaxone, 1 L bolus NS, acetaminophen, ketorolac while in the ED. Patient to be admitted for IV antibiotics and manage in setting of UTI. PMH: As noted above PSH: Kidney transplant, appendectomy FamHx: kidney failure Social: Alcohol Use Socially ,Never smoker, denied vaping ,Denied Illicit Drug use Meds: rec pending Allergies: Codeine, fish products, vancomycin Review of Systems Review of Systems Systems Reviewed: All systems reviewed, normal except as documented Exam Vital Signs Temp Pulse Resp BP Pulse Ox O2 Del Method 99.3 F 98 18 129/74 98 Room Air 09/18/24 02:57 09/18/24 01:44 09/18/24 01:44 09/18/24 01:44 09/18/24 01:44 09/18/24 01:44 Narrative Exam General: Middle-age female. Minor distress from pain, cooperative HEENT: NCAT, No JVD noted. Mucosa moist. Pupils are equal and reactive to light bilaterally Cardiovascular: Normal S1 and S2. Regular rate and rhythm. Respiratory: Lungs are clear to auscultation bilaterally. No wheezing or crackles heard. Abdomen: Soft, nontender, not distended, normal bowel sounds. : no CVA tenderness Skin: Warm to touch, dry, no rashes noted Musculoskeletal: No gross injuries. Able to move all 4 extremities. No pitting edema Neuro: Alert and oriented x3. No focal neuro deficits. Psych: Normal affect and mood Results: Labs 09/18/24 04:43 09/18/24 04:43 Labs: Short CBC 09/17/24 Range/Units 19:52 WBC 13.2 H (3.6-11.0) Thou/mm3 Hgb 13.1 (12.0-16.0) g/dL Hct 39.2 (36.0-46.0) % Plt Count 364 (140-440) Thou/mm3 BMP 09/17/24 19:52 Sodium 136 Potassium 4.1 Chloride 102 Carbon Dioxide 24.8 BUN 18 Creatinine 1.5 H Glucose 169 H Calcium 9.0 Liver Function 09/17/24 Range/Units 19:52 Total Bilirubin 0.8 (0.3-1.2) mg/dL AST 13 (0-34) U/L ALT 9 L (10-49) U/L Alkaline Phosphatase 57 (46-116) U/L Albumin 4.5 (3.5-5.0) gm/dL Urine 09/17/24 Range/Units 22:33 Urine Color Lt-Yellow (Lt Yel-Yel) Urine Clarity Turbid A (Clear/Hazy) Urine pH 6.5 (5.0-7.0) Ur Specific [place] 1.011 (1.001-1.035) Urine Protein Trace (Neg - Trace) Urine Glucose (UA) 2+ A (Negative) Quality Measures Quality Measures sepsis Current suspected stage: ruled out Possible source: genitourinary Blood cultures ordered: yes Antibiotic ordered: Yes Medications Home Medications and Allergies Home Medications ?Medication ?Instructions ?Recorded ?Confirmed ?Type cyclosporine modified 100 mg 100 mg PO BID 08/11/22 History capsule glipizide 10 mg tablet, extended 10 mg PO BID 08/11/22 05/10/24 History release 24 hr (Glucotrol XL) metoprolol tartrate 50 mg tablet 50 mg PO BID 08/11/22 05/10/24 History mycophenolate sodium 180 mg 540 mg PO BID 08/11/2201/24 History tablet,delayed release prednisone 2.5 mg tablet 2.5 mg PO DAILY 08/11/2201/24 History Allergies Allergy/AdvReac Type Severity Reaction Status Date / Time codeine Allergy Severe Rash Verified 09/17/24 19:03 Fish Containing Products Allergy Severe Difficulty Verified 09/17/24 19:03 Breathing vancomycin Allergy Severe RASH Verified 09/17/24 19:03 Visit Medications Acetaminophen (Acetaminophen 325 Mg Tablet) 650 mg PO Q6H PRN PRN Reason: Fever >100.3 or pain Stop: 10/18/24 03:15 Heparin Sodium (Porcine) (Heparin Sod Inj 5000 Unit/Ml Vial) 5,000 unit SC Q8HR ROSETTE Stop: 10/02/24 05:59 Sodium Chloride (Ns) 1,000 mls @ 80 mls/hr IV .[id number] ROSETTE Stop: 10/18/24 03:29 Ceftriaxone Sodium/Dextrose (Rocephin/D5w 1gm Iv Premix) 1 gm in 50 mls @ 100 mls/hr IV QDAY ROSETTE Stop: 09/25/24 03:18 Ondansetron HCl (Ondansetron Inj 2 Mg/Ml Inj 2 Ml) 4 mg IV Q6H PRN; Protocol PRN Reason: NAUSEA OR VOMITING Stop: 10/18/24 03:15 Sennosides (Senna Tablet) 1 tab PO QDAY PRN; Protocol PRN Reason: constipation Stop: 10/18/24 03:15 Discontinued Medications Acetaminophen (Acetaminophen 325 Mg Tablet) 650 mg PO X1 ONE Stop: 09/18/24 01:45 Last Admin: 09/18/24 01:57 Dose: 650 mg Hydrocodone Bitart/Acetaminophen (Hydrocodone/Apap 7.5/325 Tablet) 1 tab PO X1 ONE Stop: 09/17/24 22:52 Last Admin: 09/17/24 23:03 Dose: 1 tab Ceftriaxone Sodium/Dextrose (Rocephin/D5w 1gm Iv Premix) 1 gm in 50 mls @ 100 mls/hr IV X1 ONE Stop: 09/18/24 02:04 Last Infusion: 09/18/24 02:27 Dose: Infused Sodium Chloride (Ns) 1,000 mls @ 999 mls/hr IV .Q1H1M ONE Stop: 09/18/24 02:35 Last Infusion: 09/18/24 02:58 Dose: Infused Ketorolac Tromethamine (Ketorolac Inj 30 Mg/Ml Vial) 30 mg IVP X1 ONE Stop: 09/18/24 01:45 Last Admin: 09/18/24 01:58 Dose: 30 mg Assessment & Plan Plan Kaylyn Wright is 44 yr female with PMH of CKD 3 s/p kidney transplant, hypertension, frequent UTIs with chief complaint of UTI . She endorses increased urinary frequency, pressure, burning since Tuesday. Also endorses headache, fever that started Tuesday night. Patient to be admitted for IV antibiotics and manage in setting of UTI. #Complicated UTI Symptoms as noted above. Has approximately 2?3 UTIs per year since her kidney transplant. Urine cultures typically positive for E. coli, no noticeable history of ESBL. Leukocytosis 13, BUN 18, creatinine 1.5 (appears to be around baseline) UA positive for UTI with leukocyte esterase, WBC 270. - Urine culture pending ? Blood culture pending ? IV ceftriaxone 1 g daily -Patient requested Diflucan as prophylactic treatment for yeast infection (known to experience this) 200mg daily - Maintenance fluids NS 85cc/hr -norco 5 q4hr PRN for pain #CKD stage 3b s/p renal transplant BUN 18, creatinine 1.5 (appears to be around baseline). 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 -avoid nephrotoxic agents -continue fluids -continue post transplant agents per nephrology #Non insulin dependent type 2 diabetes On admission initial glucose 169. Last A1c 8.9 on 01/2024. Patient takes glipizide for diabetes at home. -Held home medications -Bedside blood glucose checks ACHS -Insulin lispro sliding scale -Carb consistent low diet -A1c pending #Hx HTN Takes Toprol tartrate 50 mg twice daily at home. - Holding as blood pressure well-controlled Health maintenance: Dispo: med surg, IV abx for UTI FEN: low carb DVT prophylaxis: Subcu heparin CODE STATUS: Full code The patient's management plan was discussed with my attending physician Dr. Stephens. Keturah Herrera PGY-1
[2024-09-18] MEDS: SODIUM CHLORIDE 0.9% 1000 ML 1,000 ML 80 ML IV ×2 (04:18→16:32)
[2024-09-18 05:22] LABS: Basophils % (Auto) 0 % (0-2.5); Eosinophils # (Auto) 0.1 Thou/mm3 (0.0-0.5); Eosinophils % (Auto) 1 % (0-10); Hematocrit 33.8 % (36.0-46.0); Hemoglobin 11.3 g/dL (12.0-16.0); Immature Granulocytes % (Auto) 0 % (0-0); Immature Granulocytes Auto 0.05 Thou/mm3 (0.00-0.00); Lymphocytes # (Auto) 1.3 Thou/mm3 (1.0-4.8); Lymphocytes % (Auto) 10 % (10-50); Mean Corpuscular HGB Conc 33.4 g/dl (31.0-37.0); Mean Corpuscular Hemoglobin 29.4 pg (25.0-35.0); Mean Corpuscular Volume 88 fL (80-100); Monocytes # (Auto) 0.9 Thou/mm3 (0.0-0.8); Monocytes % (Auto) 7 % (0-12); Neutrophils # (Auto) 10.7 Thou/mm3 (1.8-7.7); Neutrophils % (Auto) 83 % (37-80); Nucleated Red Blood Cell % 0 /100 WBC (0); Platelet Count 282 Thou/mm3 (140-440); RDW Standard Deviation 43.8 fL (36.4-46.3); Red Blood Count 3.85 Miln/mm3 (4.00-5.20)
[2024-09-18 05:39] LABS: Glucose Estimated Average 157 mg/dL (80-131); Hemoglobin A1C 7.1 % Hgb (4.8-6.0)
[2024-09-18] MEDS: HEPARIN SOD INJ 5000 UNIT/ML VIAL SC ×3 (05:56→20:40)
[2024-09-18 06:08] LABS: Alanine Aminotransferase < 7 U/L (10-49); Albumin, Serum 3.8 gm/dL (3.5-5.0); Albumin/Globulin Ratio 1.5 (1.2-2.2); Alkaline Phosphatase 49 U/L (46-116); Anion Gap 9 (7-16); Aspartate Amino Transferase < 10 U/L (0-34); BUN/Creatinine Ratio 12 Ratio (12-20); Bilirubin,Total 0.4 mg/dL (0.3-1.2); Blood Urea Nitrogen 17 mg/dL (9-23); Calcium 7.6 mg/dL (8.3-10.6); Calcium (Corrected) 7.8 mg/dL (8.5-10.1); Carbon Dioxide 21.9 mMol/L (20.0-31.0); Chloride 107 mMol/L (98-107); Creatinine (Component) 1.4 mg/dL (0.6-1.3); Estimated Creatinine Clearance 49.4 mL/min (>60); Globulin 2.6 gm/dL (2.3-3.5); Glucose 185 mg/dL (74-106); Magnesium 1.8 mg/dL (1.6-2.6); Osmolality,Calculated 282 (275-295); Phosphorous 2.3 mg/dL (2.4-5.1); Potassium 3.7 mMol/L (3.4-5.1); Sodium 138 mMol/L (136-145); Total Protein 6.4 gm/dL (5.7-8.2); eGFR 47 See Note
--- NOTE | 2024-09-18 06:16 | XR_ITS ---
Examination: Retroperitoneal ultrasound, complete Technique: Multiple high resolution grayscale images of the retroperitoneum obtained, including kidneys and bladder. Exam date and time:September 18, 2024 0756 hours History kidney transplant 2010, urinary tract infections 2 days FINDINGS: Right kidney not visualized Transplant left kidney 11.9 cm cortex 1.8 cm 12 mm medial cyst No bladder mass or bladder calculi Bladder prevoid volume 232 cc postvoid volume 77 cc IMPRESSION: Left transplant kidney 11.9 cm cortex 1.8 cm No hydronephrosis
[2024-09-18] MEDS: HYDROcodone/APAP 5/325 TABLET 1 TAB PO ×2 (06:22→13:36)
[2024-09-18] MEDS: ONDANSETRON INJ 2 MG/ML INJ 2 ML 4 MG IV ×2 (06:22→14:14)
--- NOTE | 2024-09-18 08:35 | ESPR_ITS ---
Documentation for date of: 09/18/24 Subjective Subjective Interval history: Patient was seen and examined at bedside this AM. No acute exents overnight. Patient tolerating diet, adequate urine output and mentation is at baseline. Patient endorses improvement of her chills and dysuria. Urine culture pending. Resumed patient's immunosuppression medication, cyclosporine, prednisone and mycophenolate. Patient switched to Zosyn from doxycycline. Will recommend patient follow-up with urology as outpatient for recurrent UTIs following kidney transplant. Nephrology, Dr Chappell consulted and closely follow the case. Exam Vital Signs Temp Pulse Resp BP Pulse Ox O2 Del Method 98.5 F 84 16 141/82 H 99 Room Air 09/18/24 05:31 09/18/24 05:31 09/18/24 05:31 09/18/24 05:31 09/18/24 05:09/18/24 05:31 Narrative Exam Constitutional Alert, oriented x 3 and comfortable HEENT Vision grossly intact. Patent nares. Trachea midline Respiratory Chest normal on inspection and clear auscultation bilaterally Cardiovascular S1 and S2 audible, RRR. No murmurs carotid bruit. No gross JVD. Abdominal Soft and non tender to palpation in all quadrants. BS + Genitourinary No bladder tenderness, no flank pain. Normal to palpation Musculoskeletal Extremities tone within normal limits. No LE edema. Neurological CN II - XII grossly intact. Extremity motor and sensation grossly intact. Skin Warm, dry and intact. No apparent lesions. Psychiatric Patient has good affect, is cooperative Objective Labs 09/18/24 04:43 09/18/24 04:43 Labs: Laboratory Results - last 24 hr 09/17/24 09/17/24 09/18/24 19:52 22:33 00:22 WBC 13.2 H RBC 4.48 Hgb 13.1 Hct 39.2 MCV 88 MCH 29.2 MCHC 33.4 RDW Std Deviation 43.8 Plt Count 364 Neut % (Auto) 83 H Lymph % (Auto) 8 L [place] % (Auto) 7 Eos % (Auto) 0 Baso % (Auto) 0 Neut # (Auto) 11.0 H Lymph # (Auto) 1.1 Sanders # (Auto) 1.0 H Eos # (Auto) 0.1 Baso # (Auto) 0.1 Immature Gran # (Auto) 0.07 H Absolute Nucleated RBC 0.00 Immature Gran % 1 H Nucleated RBC % 0 Sodium 136 Potassium 4.1 Chloride 102 Carbon Dioxide 24.8 Anion Gap 9 BUN 18 Creatinine 1.5 H Estim Creat Clear Calc 46.1 L eGFR 43 L BUN/Creatinine Ratio [address] Glu mg/dL Hemoglobin A1c Calculated Osmolality 277 Lactic Acid 1.0 Calcium 9.0 Corrected Calcium 9.0 Phosphorus Magnesium Total Bilirubin 0.8 AST 13 ALT 9 L Alkaline Phosphatase 57 Total Protein 7.4 Albumin 4.5 Globulin 2.9 Albumin/Globulin Ratio 1.6 Procalcitonin 0.17 Ur Collection Type Clean Catch Urine Color Lt-Yellow Urine Clarity Turbid A Urine pH 6.5 Ur Specific [place] 1.011 Urine Protein Trace Urine Glucose (UA) 2+ A Urine Ketones Negative Urine Blood 1+ A Urine Nitrite Negative Urine Bilirubin Negative Urine Urobilinogen (Auto) Negative Ur Leukocyte Esterase Positive Urine RBC 15 H Urine WBC 269 H Ur Squamous Epith Cells 2 Urine Bacteria Rare Ur Culture Indicated? Yes Urine HCG, Qual Negative 09/18/24 04:43 WBC 13.0 H RBC 3.85 L Hgb 11.3 L Hct 33.8 L MCV 88 MCH 29.4 MCHC 33.4 RDW Std Deviation 43.8 Plt Count 282 D Neut % (Auto) 83 H Lymph % (Auto) 10 [place] % (Auto) 7 Eos % (Auto) 1 Baso % (Auto) 0 Neut # (Auto) 10.7 H Lymph # (Auto) 1.3 Sanders # (Auto) 0.9 H Eos # (Auto) 0.1 Baso # (Auto) 0.0 Immature Gran # (Auto) 0.05 H Absolute Nucleated RBC 0.00 Immature Gran % 0 Nucleated RBC % 0 Sodium 138 Potassium 3.7 Chloride 107 Carbon Dioxide 21.9 Anion Gap 9 BUN 17 Creatinine 1.4 H Estim Creat Clear Calc 49.4 L eGFR 47 L BUN/Creatinine Ratio 12 [address]ucose [address] Glu mg/dL 157 H Hemoglobin A1c 7.1 H Calculated Osmolality 282 Lactic Acid Calcium 7.6 L Corrected Calcium 7.8 L Phosphorus 2.3 L Magnesium 1.8 Total Bilirubin 0.4 AST < 10 ALT < 7 L Alkaline Phosphatase 49 Total Protein 6.4 Albumin 3.8 D Globulin 2.6 Albumin/Globulin Ratio 1.5 Procalcitonin Ur Collection Type Urine Color Urine Clarity Urine pH Ur Specific [place] Urine Protein Urine Glucose (UA) Urine Ketones Urine Blood Urine Nitrite Urine Bilirubin Urine Urobilinogen (Auto) Ur Leukocyte Esterase Urine RBC Urine WBC Ur Squamous Epith Cells Urine Bacteria Ur Culture Indicated? Urine HCG, Qual Quality Measures Quality Measures sepsis Current suspected stage: ruled out Possible source: genitourinary Blood cultures ordered: yes Antibiotic ordered: Yes Assessment & Plan Assessment Current Active Medications: Generic Name Dose Route Start Last Admin Trade Name Freq PRN Reason Stop Dose Admin Acetaminophen 650 mg 09/18/24 03:16 Acetaminophen 325 Mg Tablet PO 10/18/24 03:15 Q6H PRN Fever >100.3 or pain Protocol Hydrocodone Bitart/Acetaminophen 1 tab 09/18/24 03:40 09/18/24 06:22 Hydrocodone/Apap 5/325 Tablet PO 09/23/24 03:39 1 tab Q4HR PRN Administration pain 6-10 Dextrose 25 ml 09/18/24 03:35 Dextrose 50%-Water Inj 50 Ml Syringe IV 10/18/24 03:34 Q15MIN PRN BG 50-70 responsive npo pt Dextrose 50 ml 09/18/24 03:35 Dextrose 50%-Water Inj 50 Ml Syringe IV 10/18/24 03:34 Q15MIN PRN BG <50 OR BG <70 & pt unresponsive Glucagon 1 mg 09/18/24 03:35 Glucagon Inj 1 Mg Vial IM Q15MIN PRN BG <70, and no IV access Heparin Sodium (Porcine) 5,000 unit 09/18/24 06:00 09/18/24 05:56 Heparin Sod Inj 5000 Unit/Ml Vial SC 10/02/24 05:59 5,000 unit Q8HR ROSETTE Administration Sodium Chloride 1,000 mls @ 80 mls/hr 09/18/24 03:30 09/18/24 04:18 Ns IV 10/18/24 03:29 80 mls/hr .[id number] ROSETTE Administration Ceftriaxone Sodium/Dextrose 1 gm in 50 mls @ 100 mls/hr 09/18/24 04:00 09/18/24 04:14 Rocephin/D5w 1gm Iv Premix IV 09/25/24 03:59 Not Given QDAY ROSETTE Insulin Human Lispro 0 unit 09/18/24 07:30 Insulin Lispro (Admelog) 1 Unit/0.01 Ml Unit SC 10/18/24 07:29 AC ROSETTE Protocol Ondansetron HCl 4 mg 09/18/24 03:16 09/18/24 06:22 Ondansetron Inj 2 Mg/Ml Inj 2 Ml IV 10/18/24 03:15 4 mg Q6H PRN Administration NAUSEA OR VOMITING Protocol Sennosides 1 tab 09/18/24 03:16 Senna Tablet PO 10/18/24 03:15 QDAY PRN constipation Protocol Plan Kaylyn Wright is 44 yr female with PMH of CKD 3 s/p kidney transplant, hypertension, frequent UTIs with chief complaint of UTI . She endorses increased urinary frequency, pressure, burning since Tuesday. Also endorses headache, fever that started Tuesday night. Patient to be admitted for IV antibiotics and manage in setting of UTI. Complicated UTI Symptoms as noted above. Has approximately 2?3 UTIs per year since her kidney transplant. Previous urine cultures positive for E. coli, no history of ESBL. Leukocytosis 13, BUN 18, creatinine 1.5 (appears to be around baseline) UA positive for UTI with leukocyte esterase, WBC 270. Patient came in and found to have 2 or more SIRS criteria and was evaluated for sepsis. However, based upon further work-up, sepsis was ruled out. Patient now endorses improvement of her symptoms. Urine culture pending Plan: -Pending urine and blood cultures ? Discontinued ceftriaxone 1 g IV daily ?Started on Zosyn 3.375 g IV every 8 hourly on [09/18? - Continue maintenance fluids NS 85cc/hr - CKD stage 3b s/p renal transplant On admission BUN 18, creatinine 1.5. Currently creatinine improved to 1.4, patient's baseline Plan: -avoid nephrotoxic agents ? Renally dose medication - Resumed home medications cyclosporine 125 Mg p.o. twice daily ? Resume home medication mycophenolate 540 Mg p.o. twice daily ? Resume home medication prednisone 2.5 Mg p.o. daily Non insulin dependent type 2 diabetes [7.1] On admission initial glucose 169. Last A1c 8.9 on 01/2024. Patient takes glipizide for diabetes at home. Plan: -Held home medications -Bedside blood glucose checks ACHS -Insulin lispro sliding scale -Carb consistent low diet Primary hypertension Home medication metoprolol tartrate 50 mg twice daily Plan: ? Resumed home medication metoprolol tartrate 25 Mg p.o. twice daily Health maintenance: Disposition: IV antibiotics Diet: Low carb consistent Lines: pIVs GI Prophylaxis: Not indicated Thrombo Prophylaxis: Heparin Code status: FULL CODE Plan of care discussed with Attending Dr. Syed Raphael MD PGY 1 Disclaimer: This note was dictated by speech recognition. Minor errors in manager retention may be present due to voice recognition software. Attending Provider Attestation/Addendum I have discussed and was present for the essential components of the history, physical examination, diagnosis, and treatment plan with the resident. I agree with the patient's care as documented by the resident and amended herein by me. Sid Lynch DO. Nephrology consulted, will continue to follow with blood and urine cultures, will continue on broad-spectrum antibiotics, Zosyn at this time and restart the patient's immunosuppressive medications. Appreciate specialist recommendations. Although this document has been carefully reviewed, there may still be some phonetic and other typographical errors. These errors are purely grammatical due to imperfections in the software program and should not be construed in any way to compromise the substance of the patient's medical care during this visit.
[2024-09-18] MEDS: CALCIUM GLUCONATE 10% INJ 1 GM/10 ML VIAL IV (09:13)
[2024-09-18] MEDS: NAPH,KPH MBDB 1 PACKET (1.5 GM) PO (09:13)
[2024-09-18] MEDS: METOPROLOL TARTRATE 25 MG TABLET PO ×2 (09:15→20:37)
--- NOTE | 2024-09-18 09:16 | ESCONSULT_ITS ---
HPI Data of Consult Consult date: 09/18/24 Requesting Physician: Benjie Stephens MD Admitting Provider: Benjie Stephens MD Attending Provider: Benjie Stephens MD Primary Care Provider: Physician No Primary/Family Consult Narrative Reason for consult: Recurrent UTI s/p kidney transplant History of present illness: Kaylyn Wright is 44 y/o F with PMHx of CKD 3 s/p kidney transplant, hypertension, diabetes, frequent UTIs with chief complaint of UTI . She endorses increased urinary frequency, pressure, and burning since Tuesday. Also endorses headache, fever that started Tuesday night. Patient took some Tylenol which helped with fever but did not improve symptoms of urination. Has approximately 2?3 UTIs per year since her kidney transplant. Endorses decreased appetite. Patient sees transplant specialist who had started her on daily low-dose antibiotic. However that caused her to have frequent yeast infections and thus discontinued. She has frequent admissions to the hospital for UTI treatment with IV antibiotics. Urine cultures typically positive for E. coli, no noticeable history of ESBL. She denies chest pain, abdominal pain, back pain. In ED, BP 162/90, HR 103, RR 20, temperature 100.8. Leukocytosis 13, BUN 18, creatinine 1.5 (appears to be around baseline). Glucose 169, lactic acid 1.0. UA positive for UTI with leukocyte esterase, WBC 270. She was given [place], ceftriaxone, 1 L bolus NS, acetaminophen, ketorolac while in the ED. Patient to be admitted for IV antibiotics and manage in setting of UTI. Nephrology consulted due to recurrent UTIs s/p kidney transplant. Patient seen and examined at bedside, resting comfortably. Patient endorses fever, chills, nausea without vomiting, dysuria, similar symptoms in the past with UTI and/or pyelonephritis. WBC 13, hemoglobin 1.3, sodium 138, potassium 3.7, bicarb 20.9, BUN 17, creatinine 1.4, EGFR 47. Recommend resuming patient's immunosuppressive's to prevent risk of kidney transplant. cc:: cc: Benjie Stephens MD Review of Systems Review of Systems Systems Reviewed: All systems reviewed, normal except as documented Exam Vital Signs Temp Pulse Resp BP Pulse Ox O2 Del Method 99.8 F 80 16 148/95 H 99 Room Air 09/18/24 09:13 09/18/24 09:15 09/18/24 08:53 09/18/24 09:15 09/18/24 08:53 09/18/24 08:53 Narrative Exam PE: Gen: Well-developed and well-nourished. Mildly uncomfortable. HEENT: NCAT, PERRLA, EOMI, MMM, anicteric conjunctivae. CVS: normal S1 and S2. RRR. No M/R/G. Resp: CTA B/L. No rhonchi, rales, crackles or wheezing. Abd: soft, non-tender, non-distended. MSK: Good ROM in BUE & BLE. No rash. Neuro: CN II-XII grossly intact. Strength 5/5 in BUE & BLE. Alert and oriented x3. Psych: appropriate mood and affect. Results Labs 09/19/24 05:00 09/19/24 05:00 Labs: Short CBC 09/17/24 09/18/24 Range/Units 19:52 04:43 WBC 13.2 H 13.0 H (3.6-11.0) Thou/mm3 Hgb 13.1 11.3 L (12.0-16.0) g/dL Hct 39.2 33.8 L (36.0-46.0) % Plt Count 364 282 D (140-440) Thou/mm3 BMP 09/17/24 09/18/24 19:52 04:43 Sodium 136 138 Potassium 4.1 3.7 Chloride 102 107 Carbon Dioxide 24.8 21.9 BUN 18 17 Creatinine 1.5 H 1.4 H Glucose 169 H 185 H Calcium 9.0 7.6 L Liver Function 09/17/24 09/18/24 Range/Units 19:52 04:43 Total Bilirubin 0.8 0.4 (0.3-1.2) mg/dL AST 13 < 10 (0-34) U/L ALT 9 L < 7 L (10-49) U/L Alkaline Phosphatase 57 49 (46-116) U/L Albumin 4.5 3.8 D (3.5-5.0) gm/dL Urine 09/17/24 Range/Units 22:33 Urine Color Lt-Yellow (Lt Yel-Yel) Urine Clarity Turbid A (Clear/Hazy) Urine pH 6.5 (5.0-7.0) Ur Specific [place] 1.011 (1.001-1.035) Urine Protein Trace (Neg - Trace) Urine Glucose (UA) 2+ A (Negative) Quality Measures Quality Measures sepsis Current suspected stage: ruled out Possible source: genitourinary Blood cultures ordered: yes Antibiotic ordered: Yes Medications Home Medications and Allergies Home Medications ?Medication ?Instructions ?Recorded ?Confirmed ?Type cyclosporine modified 100 mg 100 mg PO BID 08/11/22 History capsule glipizide 10 mg tablet, extended 10 mg PO BID 08/11/22 09/18/24 History release 24 hr (Glucotrol XL) metoprolol tartrate 50 mg tablet 50 mg PO BID 08/11/22 09/18/24 History mycophenolate sodium 180 mg 540 mg PO BID 08/11/22 History tablet,delayed release prednisone 2.5 mg tablet 2.5 mg PO DAILY 08/11/22 History Allergies Allergy/AdvReac Type Severity Reaction Status Date / Time codeine Allergy Severe Rash Verified 09/17/24 19:03 Fish Containing Products Allergy Severe Difficulty Verified 09/17/24 19:03 Breathing vancomycin Allergy Severe RASH Verified 09/17/24 19:03 Visit Medications Acetaminophen (Acetaminophen 325 Mg Tablet) 650 mg PO Q6H PRN; Protocol PRN Reason: Fever >100.3 or pain Stop: 10/18/24 03:15 Last Admin: 09/18/24 09:13 Dose: 650 mg Hydrocodone Bitart/Acetaminophen (Hydrocodone/Apap 5/325 Tablet) 1 tab PO Q4HR PRN PRN Reason: pain 6-10 Stop: 09/23/24 03:39 Last Admin: 09/18/24 06:22 Dose: 1 tab Calcium Carbonate (Calcium Carbonate 600 Mg Tablet) 600 mg PO QDAY ROSETTE Stop: 10/18/24 08:59 Dextrose (Dextrose 50%-Water Inj 50 Ml Syringe) 25 ml IV Q15MIN PRN PRN Reason: BG 50-70 responsive npo pt Stop: 10/18/24 03:34 Dextrose (Dextrose 50%-Water Inj 50 Ml Syringe) 50 ml IV Q15MIN PRN PRN Reason: BG <50 OR BG <70 & pt unresponsive Stop: 10/18/24 03:34 Glucagon (Glucagon Inj 1 Mg Vial) 1 mg IM Q15MIN PRN PRN Reason: BG <70, and no IV access Heparin Sodium (Porcine) (Heparin Sod Inj 5000 Unit/Ml Vial) 5,000 unit SC Q8HR [facility] Stop: 10/02/24 05:59 Last Admin: 09/18/24 05:56 Dose: 5,000 unit Sodium Chloride (Ns) 1,000 mls @ 80 mls/hr IV .[id number] [facility] Stop: 10/18/24 03:29 Last Admin: 09/18/24 04:18 Dose: 80 mls/hr Ceftriaxone Sodium/Dextrose (Rocephin/D5w 1gm Iv Premix) 1 gm in 50 mls @ 100 mls/hr IV QDAY [facility] Stop: 09/25/24 03:59 Last Admin: 09/18/24 04:14 Dose: Not Given Insulin Human Lispro (Insulin Lispro (Admelog) 1 Unit/0.01 Ml Unit) 0 unit SC AC [facility]; Protocol Stop: 10/18/24 07:29 Last Admin: 09/18/24 09:06 Dose: Not Given Metoprolol Tartrate (Metoprolol Tartrate 25 Mg Tablet) 25 mg PO BID [facility] Stop: 10/18/24 09:09 Last Admin: 09/18/24 09:15 Dose: 25 mg Ondansetron HCl (Ondansetron Inj 2 Mg/Ml Inj 2 Ml) 4 mg IV Q6H PRN; Protocol PRN Reason: NAUSEA OR VOMITING Stop: 10/18/24 03:15 Last Admin: 09/18/24 06:22 Dose: 4 mg Sennosides (Senna Tablet) 1 tab PO QDAY PRN; Protocol PRN Reason: constipation Stop: 10/18/24 03:15 Discontinued Medications Acetaminophen (Acetaminophen 325 Mg Tablet) 650 mg PO X1 ONE Stop: 09/18/24 01:45 Last Admin: 09/18/24 01:57 Dose: 650 mg Hydrocodone Bitart/Acetaminophen (Hydrocodone/Apap 7.5/325 Tablet) 1 tab PO X1 ONE Stop: 09/17/24 22:52 Last Admin: 09/17/24 23:03 Dose: 1 tab Calcium Gluconate (Calcium Gluconate 10% Inj 1 Gm/10 Ml Vial) 1 gm IV X1 ONE Stop: 09/18/24 08:47 Last Admin: 09/18/24 09:13 Dose: 1 gm Ceftriaxone Sodium/Dextrose (Rocephin/D5w 1gm Iv Premix) 1 gm in 50 mls @ 100 mls/hr IV X1 ONE Stop: 09/18/24 02:04 Last Infusion: 09/18/24 02:27 Dose: Infused Sodium Chloride (Ns) 1,000 mls @ 999 mls/hr IV .Q1H1M ONE Stop: 09/18/24 02:35 Last Infusion: 09/18/24 02:58 Dose: Infused Ketorolac Tromethamine (Ketorolac Inj 30 Mg/Ml Vial) 30 mg IVP X1 ONE Stop: 09/18/24 01:45 Last Admin: 09/18/24 01:58 Dose: 30 mg Potassium Phos/Sodium Phos ([facility] 1 Packet (1.5 Gm)) 1 packet PO X1 ONE Stop: 09/18/24 08:47 Last Admin: 09/18/24 09:13 Dose: 1 packet Assessment & Plan Plan 44 y/o F with PMHx of CKD 3 s/p kidney transplant, hypertension, frequent UTIs with chief complaint of UTI . She endorses increased urinary frequency, pressure, burning since Tuesday. Also endorses headache, fever that started Tuesday night. Patient to be admitted for IV antibiotics and manage in setting of UTI. Nephrology consulted for renal transplant. #CKD stage 3b s/p renal transplant BUN 18, creatinine 1.5 (appears to be around baseline). Patient had renal transplant, currently on immunosuppressive therapy. -Continue home prednisone, cyclosporine, mycophenolate -continue fluids -Renally dose meds -Monitor renal function -Avoid nephrotoxins #Complicated UTI Presented with complaint of fevers, chills, nausea, dysuria. Has approximately 2?3 UTIs per year since her kidney transplant. Urine cultures typically positive for E. coli, no noticeable history of ESBL. Leukocytosis 13, BUN 18, creatinine 1.5 (appears to be around baseline) UA positive for UTI with leukocyte esterase, WBC 270. Patient currently on Rocephin. -Urine culture pending -Blood culture pending -Recommend changing antibiotics to IV Zosyn based on past results with this patient -Patient requested Diflucan as prophylactic treatment for yeast infection (known to experience this) 200mg daily -Maintenance fluids NS 85cc/hr, closely monitor to avoid overhydration #Non insulin dependent type 2 diabetes #Hx HTN Management as per primary team. Thank you for allow us to participate in the care of this patient. Plan of care discussed attending Dr. Chappell. Braulio Mayen MD PGY?1 Attending Provider Attestation/Addendum Patient seen and examined with resident physician Dr. Huffman. Note reviewed, agree with findings and recommendations. Patient admitted with Complicated UTI. Status post kidney transplant. patient currently seen in medical floor. Having significant chills. Switch antibiotics to Zosyn. Thank you Dr. Lynch for allowing me to participate in the care of Ms. Wright
[2024-09-18] MEDS: CALCIUM CARBONATE 600 MG TABLET PO (10:42)
--- NOTE | 2024-09-18 12:10 | PC.NURSE ---
Unable to do home med rec at this time. Pt does not have home meds with her. Pt will have family bring home meds.
[2024-09-18] MEDS: predniSONE 5 MG TABLET 2.5 MG PO (12:49)
[2024-09-18] MEDS: PIPER/TAZO 3.375 GM PREMIX 3.375 GM/50 ML BAG IV ×2 (14:01→21:21)
[2024-09-18] MEDS: INSULIN LISPRO (AdmeLOG) 1 UNIT/0.01 ML UNIT SC (16:48)
[2024-09-18] MEDS: PATIENT'S OWN MED 1 EA EA 3 EA PO (20:37)
[2024-09-18] MEDS: PATIENT'S OWN MED 1 EA EA PO (20:38)
[2024-09-19] VITALS (10 sets, daily range): BP systolic 131–157; BP diastolic 72–88; PULSE 64–92; RESP 16–99; TEMP 36.2–36.7; O2SAT 95–99
[2024-09-19] MEDS: SODIUM CHLORIDE 0.9% 1000 ML 1,000 ML 80 ML IV (04:31)
[2024-09-19] MEDS: PIPER/TAZO 3.375 GM PREMIX 3.375 GM/50 ML BAG IV (05:11)
[2024-09-19 05:20] LABS: Basophils % (Auto) 0 % (0-2.5); Eosinophils # (Auto) 0.1 Thou/mm3 (0.0-0.5); Eosinophils % (Auto) 1 % (0-10); Hematocrit 32.5 % (36.0-46.0); Hemoglobin 10.8 g/dL (12.0-16.0); Immature Granulocytes % (Auto) 0 % (0-0); Immature Granulocytes Auto 0.03 Thou/mm3 (0.00-0.00); Lymphocytes # (Auto) 1.5 Thou/mm3 (1.0-4.8); Lymphocytes % (Auto) 15 % (10-50); Mean Corpuscular HGB Conc 33.2 g/dl (31.0-37.0); Mean Corpuscular Hemoglobin 29.1 pg (25.0-35.0); Mean Corpuscular Volume 88 fL (80-100); Monocytes % (Auto) 10 % (0-12); Neutrophils # (Auto) 7.4 Thou/mm3 (1.8-7.7); Neutrophils % (Auto) 73 % (37-80); Nucleated Red Blood Cell % 0 /100 WBC (0); Platelet Count 266 Thou/mm3 (140-440); RDW Standard Deviation 44.2 fL (36.4-46.3); Red Blood Count 3.71 Miln/mm3 (4.00-5.20); White Blood Count 10.1 Thou/mm3 (3.6-11.0)
[2024-09-19 05:53] LABS: Alanine Aminotransferase 8 U/L (10-49); Albumin, Serum 3.7 gm/dL (3.5-5.0); Albumin/Globulin Ratio 1.5 (1.2-2.2); Alkaline Phosphatase 52 U/L (46-116); Anion Gap 9 (7-16); Aspartate Amino Transferase 10 U/L (0-34); BUN/Creatinine Ratio 7 Ratio (12-20); Bilirubin,Total 0.6 mg/dL (0.3-1.2); Blood Urea Nitrogen 11 mg/dL (9-23); Calcium 8.1 mg/dL (8.3-10.6); Calcium (Corrected) 8.3 mg/dL (8.5-10.1); Carbon Dioxide 23.3 mMol/L (20.0-31.0); Chloride 107 mMol/L (98-107); Creatinine (Component) 1.5 mg/dL (0.6-1.3); Estimated Creatinine Clearance 46.8 mL/min (>60); Globulin 2.5 gm/dL (2.3-3.5); Glucose 118 mg/dL (74-106); Osmolality,Calculated 277 (275-295); Potassium 3.6 mMol/L (3.4-5.1); Sodium 139 mMol/L (136-145); Total Protein 6.2 gm/dL (5.7-8.2); eGFR 43 See Note
[2024-09-19] MEDS: ACETAMINOPHEN 325 MG TABLET 650 MG PO (08:12)
[2024-09-19] MEDS: CALCIUM CARBONATE 600 MG TABLET PO (08:12)
[2024-09-19] MEDS: predniSONE 5 MG TABLET 2.5 MG PO (08:13)
[2024-09-19] MEDS: METOPROLOL TARTRATE 25 MG TABLET PO ×2 (08:13→20:24)
[2024-09-19] MEDS: PATIENT'S OWN MED 1 EA EA 3 EA PO ×2 (08:14→20:22)
[2024-09-19] MEDS: PATIENT'S OWN MED 1 EA EA PO ×2 (08:15→20:23)
--- NOTE | 2024-09-19 09:15 | PD.RESPRO ---
Documentation for date of: 09/19/24 Subjective Subjective Interval history: Kaylyn Wright is 44 y/o F with PMHx of CKD 3 s/p kidney transplant, hypertension, diabetes, frequent UTIs with chief complaint of UTI . She endorses increased urinary frequency, pressure, and burning since Tuesday. Also endorses headache, fever that started Tuesday night. Patient took some Tylenol which helped with fever but did not improve symptoms of urination. Has approximately 2?3 UTIs per year since her kidney transplant. Endorses decreased appetite. Patient sees transplant specialist who had started her on daily low-dose antibiotic. However that caused her to have frequent yeast infections and thus discontinued. She has frequent admissions to the hospital for UTI treatment with IV antibiotics. Urine cultures typically positive for E. coli, no noticeable history of ESBL. She denies chest pain, abdominal pain, back pain. In ED, BP 162/90, HR 103, RR 20, temperature 100.8. Leukocytosis 13, BUN 18, creatinine 1.5 (appears to be around baseline). Glucose 169, lactic acid 1.0. UA positive for UTI with leukocyte esterase, WBC 270. She was given [place], ceftriaxone, 1 L bolus NS, acetaminophen, ketorolac while in the ED. Patient to be admitted for IV antibiotics and manage in setting of UTI. Nephrology consulted due to recurrent UTIs s/p kidney transplant. Patient seen and examined at bedside, resting comfortably. Patient endorses fever, chills, nausea without vomiting, dysuria, similar symptoms in the past with UTI and/or pyelonephritis. WBC 13, hemoglobin 1.3, sodium 138, potassium 3.7, bicarb 20.9, BUN 17, creatinine 1.4, EGFR 47. Recommend resuming patient's immunosuppressive's to prevent risk of kidney transplant. 09/19/2024: Patient seen examined at bedside, resting comfortably. Patient reports significant improvement symptoms with IV antibiotics. Denies fevers, chills, nausea, vomiting, chest pain, shortness of breath. Reports decreased appetite but improving. WBC 10.1, hemoglobin 10.8, sodium 139, potassium 3.6, bicarb 23.3, BUN 11, creatinine 1.5, EGFR 43. Renal ultrasound showed no hydronephrosis. Exam Vital Signs Temp Pulse Resp BP Pulse Ox O2 Del Method 97.5 F 90 18 135/88 H 97 Room Air 09/19/24 07:48 09/19/24 08:13 09/19/24 07:48 09/19/24 08:13 09/19/24 07:48 09/19/24 07:48 Narrative Exam PE: Gen: Well-developed and well-nourished. HEENT: NCAT, PERRLA, EOMI, MMM, anicteric conjunctivae. CVS: normal S1 and S2. RRR. No M/R/G. Resp: CTA B/L. No rhonchi, rales, crackles or wheezing. Abd: soft, non-tender, non-distended. MSK: Good ROM in BUE & BLE. No rash. Neuro: CN II-XII grossly intact. Strength 5/5 in BUE & BLE. Alert and oriented x3. Psych: appropriate mood and affect. Objective Labs 09/19/24 05:00 09/19/24 05:00 Labs: Laboratory Results - last 24 hr 09/19/24 05:00 WBC 10.1 RBC 3.71 L Hgb 10.8 L Hct 32.5 L MCV 88 MCH 29.1 MCHC 33.2 RDW Std Deviation 44.2 Plt Count 266 Neut % (Auto) 73 Lymph % (Auto) 15 [place] % (Auto) 10 Eos % (Auto) 1 Baso % (Auto) 0 Neut # (Auto) 7.4 Lymph # (Auto) 1.5 [place] # (Auto) 1.0 H Eos # (Auto) 0.1 Baso # (Auto) 0.0 Immature Gran # (Auto) 0.03 H Absolute Nucleated RBC 0.00 Immature Gran % 0 Nucleated RBC % 0 Sodium 139 Potassium 3.6 Chloride 107 Carbon Dioxide 23.3 Anion Gap 9 BUN 11 Creatinine 1.5 H Estim Creat Clear Calc 46.8 L eGFR 43 L BUN/Creatinine Ratio 7 L Glucose 118 H D Calculated Osmolality 277 Calcium 8.1 L Corrected Calcium 8.3 L Total Bilirubin 0.6 AST 10 ALT 8 L Alkaline Phosphatase 52 Total Protein 6.2 Albumin 3.7 Globulin 2.5 Albumin/Globulin Ratio 1.5 Quality Measures Quality Measures sepsis Current suspected stage: sepsis Possible source: genitourinary Blood cultures ordered: yes Antibiotic ordered: Yes Assessment & Plan Assessment Current Active Medications: Generic Name Dose Route Start Last Admin Trade Name Freq PRN Reason Stop Dose Admin Acetaminophen 650 mg 09/18/24 03:16 09/19/24 08:12 Acetaminophen 325 Mg Tablet PO 10/18/24 03:15 650 mg Q6H PRN Administration Fever >100.3 or pain Protocol Hydrocodone Bitart/Acetaminophen 1 tab 09/18/24 03:40 09/18/24 13:36 Hydrocodone/Apap 5/325 Tablet PO 09/23/24 03:39 1 tab Q4HR PRN Administration pain 6-10 Calcium Carbonate 600 mg 09/18/24 09:00 09/19/24 08:12 Calcium Carbonate 600 Mg Tablet PO 10/18/24 08:59 600 mg QDAY ROSETTE Administration Dextrose 25 ml 09/18/24 03:35 Dextrose 50%-Water Inj 50 Ml Syringe IV 10/18/24 03:34 Q15MIN PRN BG 50-70 responsive npo pt Dextrose 50 ml 09/18/24 03:35 Dextrose 50%-Water Inj 50 Ml Syringe IV 10/18/24 03:34 Q15MIN PRN BG <50 OR BG <70 & pt unresponsive Glucagon 1 mg 09/18/24 03:35 Glucagon Inj 1 Mg Vial IM Q15MIN PRN BG <70, and no IV access Heparin Sodium (Porcine) 5,000 unit 09/18/24 21:00 09/18/24 20:40 Heparin Sod Inj 5000 Unit/Ml Vial SC 10/02/24 20:59 5,000 unit BID ROSETTE Administration Sodium Chloride 1,000 mls @ 80 mls/hr 09/18/24 03:30 09/19/24 04:31 Ns IV 10/18/24 03:29 80 mls/hr .[id number] ROSETTE Administration Piperacillin/Tazobactam/Dextrose 3.375 gm in 50 mls @ 12.5 mls/hr 09/18/24 14:00 09/19/24 05:11 Zosyn IV 09/25/24 13:59 12.5 mls/hr Q8HR ROSETTE Administration Protocol Insulin Human Lispro 0 unit 09/18/24 07:30 09/18/24 16:48 Insulin Lispro (Admelog) 1 Unit/0.01 Ml Unit SC 10/18/24 07:29 1 unit AC ROSETTE Administration Protocol Metoprolol Tartrate 25 mg 09/18/24 09:10 09/19/24 08:13 Metoprolol Tartrate 25 Mg Tablet PO 10/18/24 09:09 25 mg BID ROSETTE Administration Ondansetron HCl 4 mg 09/18/24 03:16 09/18/24 14:14 Ondansetron Inj 2 Mg/Ml Inj 2 Ml IV 10/18/24 03:15 4 mg Q6H PRN Administration NAUSEA OR VOMITING Protocol Patient Own Medication 3 ea 09/18/24 21:00 09/19/24 08:14 Patient's Own Med 1 Ea Ea PO 10/18/24 20:59 3 tab BID ROSETTE Administration Patient Own Medication 1 ea 09/18/24 21:00 09/19/24 08:15 Patient's Own Med 1 Ea Ea PO 10/18/24 20:59 1 ea BID ROSETTE Administration Prednisone 2.5 mg 09/18/24 11:45 09/19/24 08:13 Prednisone 5 Mg Tablet PO 10/18/24 11:44 2.5 mg QDAY ROSETTE Administration Sennosides 1 tab 09/18/24 03:16 Senna Tablet PO 10/18/24 03:15 QDAY PRN constipation Protocol Plan 44 y/o F with PMHx of CKD 3 s/p kidney transplant, hypertension, frequent UTIs with chief complaint of UTI . She endorses increased urinary frequency, pressure, burning since Tuesday. Also endorses headache, fever that started Tuesday night. Patient to be admitted for IV antibiotics and manage in setting of UTI. Nephrology consulted for renal transplant. #CKD stage 3b s/p renal transplant BUN 18, creatinine 1.5 (appears to be around baseline). Patient had renal transplant, currently on immunosuppressive therapy. -Continue home prednisone, cyclosporine, mycophenolate -Encourage oral hydration -Renally dose meds -Monitor renal function -Avoid nephrotoxins #Complicated UTI Presented with complaint of fevers, chills, nausea, dysuria. Has approximately 2?3 UTIs per year since her kidney transplant. Urine cultures typically positive for E. coli, no noticeable history of ESBL. Leukocytosis 13, BUN 18, creatinine 1.5 (appears to be around baseline) UA positive for UTI with leukocyte esterase, WBC 270. Patient currently on Rocephin. Patient showed improvement in subjective symptoms and WBCs on Zosyn. -Urine culture pending -Blood culture pending -Zosyn -Patient requested Diflucan as prophylactic treatment for yeast infection (known to experience this) 200mg daily -Maintenance fluids NS 85cc/hr, closely monitor to avoid overhydration #Non insulin dependent type 2 diabetes #Hx HTN Management as per primary team. Thank you for allow us to participate in the care of this patient. Plan of care discussed attending Dr. Chappell. Braulio Mayen MD PGY?1 Attending Provider Attestation/Addendum Patient seen and examined with resident physician Dr. Huffman. Note reviewed, agree with findings and recommendations. Patient admitted with Complicated UTI. Status post kidney transplant. patient currently seen in medical floor. Patient feeling much better today. Urine cultures came back positive for Klebsiella. Blood cultures negative. Can transition to Augmentin or levofloxacin for 10 days. Recommended to follow-up with transplant urologist for recurrent UTIs.
--- NOTE | 2024-09-19 10:59 | PC.SS ---
Follow up note: Waiting for nephrology recommendations. Pt is on IV antibiotic. Pt will return home upon d.c.
[2024-09-19] MEDS: cefTRIAXone/D5w 1gm IV premix 1 GM/50 ML BAG IV (11:41)
--- NOTE | 2024-09-19 11:42 | ESPR_ITS ---
<Statement entered by Dom Sharma MD - 09/19/24 15:45> Patient was seen and examined at bedside. Patient reported complete resolution of her symptoms. Will keep the patient for more IV antibiotics. Patient reported that in the past year she has had almost 3 episodes of UTI. Recommended the patient to follow-up with urologist in outpatient settings to prevent any further complications or damage to the kidneys. At this time we will continue the patient on IV fluids as her serum creatinine today is still 1.6. - Patient's plan and care discussed with my attending, Dr. Syed Sharma MD Internal Medicine PGY-2 Documentation for date of: 09/19/24 Subjective Subjective Interval history: Patient examined at bedside today. No acute overnight events. Patient reports she is feeling much better than yesterday. She denies any back pain or dysuria. She denies any fever and chills. She says she has not seen urologist in 3 years and is going to see one moving forward. Her previous urologist was in [place], [place]. Denies a history of a PCKD, and states that her mother has had 2 kidney transplants and that a majority of her family has had chronic kidney disease. No other complaints at this time. Exam Vital Signs Temp Pulse Resp BP Pulse Ox O2 Del Method 97.5 F 90 18 135/88 H 97 Room Air 09/19/24 07:48 09/19/24 08:13 09/19/24 07:48 09/19/24 08:13 09/19/24 07:48 09/19/24 07:48 Narrative Exam General: AAOx3, NAD, well-appearing, pleasant female HEENT: Moist mucous membranes, conjunctiva clear, EOMI, PERRLA, Cardiovascular: S1, S2, radial pulses +2 bilat, RRR Pulmonary: CTAB bilat no cough, no wheezing GI: No tenderness to light or deep palpitation, no guarding, rigidity, rebound tenderness or distension : No CVA tenderness Extremities: No presence of trace or pitting edema in lower extremities bilaterally, dorsalis pedis pulses +2 bilaterally Neuro: AAOx3, no focal motor or sensory deficits in the UE or LE bilat Psych: Good judgement, thought and behavior. Cooperative Objective Labs 09/19/24 05:00 09/19/24 05:00 Labs: Laboratory Results - last 24 hr 09/19/24 05:00 WBC 10.1 RBC 3.71 L Hgb 10.8 L Hct 32.5 L MCV 88 MCH 29.1 MCHC 33.2 RDW Std Deviation 44.2 Plt Count 266 Neut % (Auto) 73 Lymph % (Auto) 15 [place] % (Auto) 10 Eos % (Auto) 1 Baso % (Auto) 0 Neut # (Auto) 7.4 Lymph # (Auto) 1.5 [place] # (Auto) 1.0 H Eos # (Auto) 0.1 Baso # (Auto) 0.0 Immature Gran # (Auto) 0.03 H Absolute Nucleated RBC 0.00 Immature Gran % 0 Nucleated RBC % 0 Sodium 139 Potassium 3.6 Chloride 107 Carbon Dioxide 23.3 Anion Gap 9 BUN 11 Creatinine 1.5 H Estim Creat Clear Calc 46.8 L eGFR 43 L BUN/Creatinine Ratio 7 L Glucose 118 H D Calculated Osmolality 277 Calcium 8.1 L Corrected Calcium 8.3 L Total Bilirubin 0.6 AST 10 ALT 8 L Alkaline Phosphatase 52 Total Protein 6.2 Albumin 3.7 Globulin 2.5 Albumin/Globulin Ratio 1.5 Quality Measures Quality Measures sepsis Current suspected stage: ruled out Possible source: genitourinary Blood cultures ordered: yes Antibiotic ordered: Yes Assessment & Plan Assessment Current Active Medications: Generic Name Dose Route Start Last Admin Trade Name Freq PRN Reason Stop Dose Admin Acetaminophen 650 mg 09/18/24 03:16 09/19/24 08:12 Acetaminophen 325 Mg Tablet PO 10/18/24 03:15 650 mg Q6H PRN Administration Fever >100.3 or pain Protocol Hydrocodone Bitart/Acetaminophen 1 tab 09/18/24 03:40 09/18/24 13:36 Hydrocodone/Apap 5/325 Tablet PO 09/23/24 03:39 1 tab Q4HR PRN Administration pain 6-10 Calcium Carbonate 600 mg 09/18/24 09:00 09/19/24 08:12 Calcium Carbonate 600 Mg Tablet PO 10/18/24 08:59 600 mg QDAY ROSETTE Administration Dextrose 25 ml 09/18/24 03:35 Dextrose 50%-Water Inj 50 Ml Syringe IV 10/18/24 03:34 Q15MIN PRN BG 50-70 responsive npo pt Dextrose 50 ml 09/18/24 03:35 Dextrose 50%-Water Inj 50 Ml Syringe IV 10/18/24 03:34 Q15MIN PRN BG <50 OR BG <70 & pt unresponsive Glucagon 1 mg 09/18/24 03:35 Glucagon Inj 1 Mg Vial IM Q15MIN PRN BG <70, and no IV access Heparin Sodium (Porcine) 5,000 unit 09/18/24 21:00 09/19/24 11:35 Heparin Sod Inj 5000 Unit/Ml Vial SC 10/02/24 20:59 Not Given BID ROSETTE Sodium Chloride 1,000 mls @ 80 mls/hr 09/18/24 03:30 09/19/24 04:31 Ns IV 10/18/24 03:29 80 mls/hr .[id number] ROSETTE Administration Ceftriaxone Sodium/Dextrose 1 gm in 50 mls @ 100 mls/hr 09/19/24 11:07 09/19/24 11:41 Rocephin/D5w 1gm Iv Premix IV 09/26/24 11:06 100 mls/hr QDAY ROSETTE Administration Sodium Chloride 1,000 mls @ 999 mls/hr 09/19/24 11:08 Ns IV 09/19/24 12:08 .Q1H1M ONE Insulin Human Lispro 0 unit 09/18/24 07:30 09/19/24 11:35 Insulin Lispro (Admelog) 1 Unit/0.01 Ml Unit SC 10/18/24 07:29 Not Given AC ROSETTE Protocol Metoprolol Tartrate 25 mg 09/18/24 09:10 09/19/24 08:13 Metoprolol Tartrate 25 Mg Tablet PO 10/18/24 09:09 25 mg BID ROSETTE Administration Ondansetron HCl 4 mg 09/18/24 03:16 09/18/24 14:14 Ondansetron Inj 2 Mg/Ml Inj 2 Ml IV 10/18/24 03:15 4 mg Q6H PRN Administration NAUSEA OR VOMITING Protocol Patient Own Medication 3 ea 09/18/24 21:00 09/19/24 08:14 Patient's Own Med 1 Ea Ea PO 10/18/24 20:59 3 tab BID ROSETTE Administration Patient Own Medication 1 ea 09/18/24 21:00 09/19/24 08:15 Patient's Own Med 1 Ea Ea PO 10/18/24 20:59 1 ea BID ROSETTE Administration Prednisone 2.5 mg 09/18/24 11:45 09/19/24 08:13 Prednisone 5 Mg Tablet PO 10/18/24 11:44 2.5 mg QDAY ROSETTE Administration Sennosides 1 tab 09/18/24 03:16 Senna Tablet PO 10/18/24 03:15 QDAY PRN constipation Protocol Plan Assessment Kaylyn Wright is a 44 yr female with PMH of CKD 3 s/p kidney transplant, hypertension, frequent UTIs with chief complaint of UTI . She endorses increased urinary frequency, pressure, burning since Tuesday. Also endorses headache, fever that started Tuesday night. Patient to be admitted for IV antibiotics and manage in setting of UTI. #Complicated UTI 2/ #Klebsiella UTI #Sepsis, ruled out Symptoms as noted above. Has approximately 2?3 UTIs per year since her kidney transplant. Previous urine cultures positive for E. coli, no history of ESBL. Leukocytosis 13, BUN 18, creatinine 1.5 (appears to be around baseline) UA positive for UTI with leukocyte esterase, WBC 270. Patient came in and found to have 2 or more SIRS criteria and was evaluated for sepsis. However, based upon further work-up, sepsis was ruled out due to no evidence of end organ damage, pt not on mechanical ventilation and is on room air BC no growth after 1 day Urine Culture shows Pansensitive Klebsiella Will de-escalate antibiotics from Zosyn patient reports that she gets yeast infections after she gets a UTI, will consider starting Diflucan maybe tomorrow if patient becomes symptomatic Plan: ? Ceftriaxone 1 g IV daily ? Continue maintenance fluids NS 85cc/hr ? Multimodal pain management #CKD stage 3b s/p renal transplant On admission BUN 18, creatinine 1.5. Currently creatinine improved to 1.4, patient's baseline 09/19: Cr 1.5 Plan: ? Nephrology consulted, appreciate recs ? Avoid nephrotoxic agents ? Renally dose medication ? Continue home medications cyclosporine 125 Mg p.o. twice daily ? Continue home medication mycophenolate 540 Mg p.o. twice daily ? Continue home medication prednisone 2.5 Mg p.o. daily ? NS 1L bolus #Non insulin dependent type 2 diabetes mellitus A1c 7.1 on admission Plan: ? Bedside blood glucose checks ACHS ? Insulin lispro sliding scale ? Carb consistent low diet #Primary hypertension Home medication metoprolol tartrate 50 mg twice daily Plan: ? Continue home medication metoprolol tartrate 25 Mg p.o. twice daily #Health Maintenance Disposition: MedSurg DVT prophylaxis: Heparin GI prophylaxis: Protonix Diet: Low carb consistent CODE STATUS: Full Patient seen and care discussed with my senior resident, Dr. Sharma, and my attending physician, Dr. Syed Benz, PGY-1 Attending Provider Attestation/Addendum I have discussed and was present for the essential components of the history, physical examination, diagnosis, and treatment plan with the resident. I agree with the patient's care as documented by the resident and amended herein by me. Sid Lynch, DO. Patient seen and evaluated this AM. Vital signs stable, patient afebrile overnight. Labs largely unremarkable, hemoglobin 10.8, creatinine slight uptrend to 1.5 today. A fluid bolus has been given. Urine cultures did speciate with pansensitive Klebsiella hence we will de-escalate antibiotics from Zosyn to ceftriaxone. Blood cultures NGTD. We also have restarted the patient's immunosuppressive medications in setting of renal transplant to include her mycophenolate, cyclosporine and prednisone. Nephrology consulted, appreciate recommendations, will continue to monitor closely while she is here, likely discharge in 1 to 2 days pending clinical improvement. Although this document has been carefully reviewed, there may still be some phonetic and other typographical errors. These errors are purely grammatical due to imperfections in the software program and should not be construed in any way to compromise the substance of the patient's medical care during this visit.
--- NOTE | 2024-09-19 11:53 | PC.SS ---
SS met with patient regarding her d/c plan. Pt is alert/oriented. Pt was admitted for UTI. Pt confirmed demographic and contact information is correct on facesheet. Pt resides with son. Pt ambulates independently without assistance or DME. Pt is ok with all ADLs. 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 Patient?s pharmacy of choice is [facility] on [address]. Pt named her sister, Dori Benz medical decision maker if she is unable. Patient?s choice is to return home upon d/c. Pt states she is diabetic but does not have glucometer. Pt states she is not on dialysis. Pt states she followed up with PCP 6 months ago. Pt states her best friend or family will provide transportation. D/C plan: Return home Next of Kin: Dori Benz, sister, phone# [phone] PCP: Dr. Chappell Address: Correct on facesheet
[2024-09-19] MEDS: INSULIN LISPRO (AdmeLOG) 1 UNIT/0.01 ML UNIT SC ×2 (12:47→18:18)
--- NOTE | 2024-09-19 13:31 | PC.NURSE ---
1140 current bag of NS increased to 999 mL's/hr for bolus
[2024-09-19] MEDS: SODIUM CHLORIDE 0.9% 1000 ML 1,000 ML 999 ML IV (19:23)
[2024-09-20] VITALS: BP 147/81; PULSE 65; RESP 18; TEMP 36.8; O2SAT 99
[2024-09-20] MEDS: SODIUM CHLORIDE 0.9% 1000 ML 1,000 ML 80 ML IV (03:57)
[2024-09-20 04:00] VITALS: BP 141/75; PULSE 63; RESP 18; TEMP 36.7; O2SAT 99
[2024-09-20 05:40] LABS: Basophils # (Auto) 0.1 Thou/mm3 (0.0-0.2); Basophils % (Auto) 1 % (0-2.5); Eosinophils # (Auto) 0.3 Thou/mm3 (0.0-0.5); Eosinophils % (Auto) 3 % (0-10); Hematocrit 33.4 % (36.0-46.0); Hemoglobin 10.9 g/dL (12.0-16.0); Immature Granulocytes % (Auto) 0 % (0-0); Immature Granulocytes Auto 0.03 Thou/mm3 (0.00-0.00); Lymphocytes # (Auto) 1.7 Thou/mm3 (1.0-4.8); Lymphocytes % (Auto) 23 % (10-50); Mean Corpuscular HGB Conc 32.6 g/dl (31.0-37.0); Mean Corpuscular Hemoglobin 29.1 pg (25.0-35.0); Mean Corpuscular Volume 89 fL (80-100); Monocytes # (Auto) 0.8 Thou/mm3 (0.0-0.8); Monocytes % (Auto) 11 % (0-12); Neutrophils # (Auto) 4.5 Thou/mm3 (1.8-7.7); Neutrophils % (Auto) 62 % (37-80); Nucleated Red Blood Cell % 0 /100 WBC (0); Platelet Count 311 Thou/mm3 (140-440); RDW Standard Deviation 43.8 fL (36.4-46.3); Red Blood Count 3.74 Miln/mm3 (4.00-5.20); White Blood Count 7.3 Thou/mm3 (3.6-11.0)
[2024-09-20 06:24] LABS: Alanine Aminotransferase 9 U/L (10-49); Albumin, Serum 3.7 gm/dL (3.5-5.0); Albumin/Globulin Ratio 1.4 (1.2-2.2); Alkaline Phosphatase 52 U/L (46-116); Anion Gap 11 (7-16); Aspartate Amino Transferase < 10 U/L (0-34); BUN/Creatinine Ratio 11 Ratio (12-20); Bilirubin,Total 0.4 mg/dL (0.3-1.2); Blood Urea Nitrogen 15 mg/dL (9-23); Calcium 8.7 mg/dL (8.3-10.6); Calcium (Corrected) 8.9 mg/dL (8.5-10.1); Carbon Dioxide 21.2 mMol/L (20.0-31.0); Chloride 104 mMol/L (98-107); Creatinine (Component) 1.4 mg/dL (0.6-1.3); Estimated Creatinine Clearance 50.1 mL/min (>60); Globulin 2.7 gm/dL (2.3-3.5); Glucose 168 mg/dL (74-106); Magnesium 1.7 mg/dL (1.6-2.6); Osmolality,Calculated 276 (275-295); Potassium 3.7 mMol/L (3.4-5.1); Sodium 136 mMol/L (136-145); Total Protein 6.4 gm/dL (5.7-8.2); eGFR 47 See Note
[2024-09-20 07:07] VITALS: PULSE 51; RESP 16; RESP 98
[2024-09-20 08:00] VITALS: BP 152/81; PULSE 77; RESP 15; TEMP 36.8; O2SAT 98
[2024-09-20 09:11] VITALS: BP 152/81; PULSE 77
[2024-09-20] MEDS: CALCIUM CARBONATE 600 MG TABLET PO (09:11)
[2024-09-20] MEDS: METOPROLOL TARTRATE 25 MG TABLET PO (09:11)
[2024-09-20] MEDS: predniSONE 5 MG TABLET 2.5 MG PO (09:11)
[2024-09-20] MEDS: cefTRIAXone/D5w 1gm IV premix 1 GM/50 ML BAG IV (09:11)
[2024-09-20] MEDS: PATIENT'S OWN MED 1 EA EA PO (09:12)
[2024-09-20] MEDS: PATIENT'S OWN MED 1 EA EA 3 EA PO (09:12)
[2024-09-20] MEDS: INSULIN LISPRO (AdmeLOG) 1 UNIT/0.01 ML UNIT SC (09:17)
--- NOTE | 2024-09-20 09:34 | ESPR_ITS ---
Documentation for date of: 09/20/24 Subjective Subjective Interval history: Kaylyn Wright is 44 y/o F with PMHx of CKD 3 s/p kidney transplant, hypertension, diabetes, frequent UTIs with chief complaint of UTI . She endorses increased urinary frequency, pressure, and burning since Tuesday. Also endorses headache, fever that started Tuesday night. Patient took some Tylenol which helped with fever but did not improve symptoms of urination. Has approximately 2?3 UTIs per year since her kidney transplant. Endorses decreased appetite. Patient sees transplant specialist who had started her on daily low-dose antibiotic. However that caused her to have frequent yeast infections and thus discontinued. She has frequent admissions to the hospital for UTI treatment with IV antibiotics. Urine cultures typically positive for E. coli, no noticeable history of ESBL. She denies chest pain, abdominal pain, back pain. In ED, BP 162/90, HR 103, RR 20, temperature 100.8. Leukocytosis 13, BUN 18, creatinine 1.5 (appears to be around baseline). Glucose 169, lactic acid 1.0. UA positive for UTI with leukocyte esterase, WBC 270. She was given [place], ceftriaxone, 1 L bolus NS, acetaminophen, ketorolac while in the ED. Patient to be admitted for IV antibiotics and manage in setting of UTI. Nephrology consulted due to recurrent UTIs s/p kidney transplant. Patient seen and examined at bedside, resting comfortably. Patient endorses fever, chills, nausea without vomiting, dysuria, similar symptoms in the past with UTI and/or pyelonephritis. WBC 13, hemoglobin 1.3, sodium 138, potassium 3.7, bicarb 20.9, BUN 17, creatinine 1.4, EGFR 47. Recommend resuming patient's immunosuppressive's to prevent risk of kidney transplant. 09/19/2024: Patient seen examined at bedside, resting comfortably. Patient reports significant improvement symptoms with IV antibiotics. Denies fevers, chills, nausea, vomiting, chest pain, shortness of breath. Reports decreased appetite but improving. WBC 10.1, hemoglobin 10.8, sodium 139, potassium 3.6, bicarb 23.3, BUN 11, creatinine 1.5, EGFR 43. Renal ultrasound showed no hydronephrosis. 09/20/2024: Patient seen and examined at bedside, resting comfortably. Pateint denies fevers, chills, SOB, chest pain, nausea, vomiting. WBC 7.3, hemoglobin 10.9, sodium 136, potassium 3.7, biarb 21.2, BUN 15, creatinine 1.4, eGFR 47. Urine culture positive for pansensitive Klebsiella, blood cultures negative. Patient clear for discharge from cardiology perspective. Exam Vital Signs Temp Pulse Resp BP Pulse Ox O2 Del Method 98.3 F 77 15 152/81 H 98 Room Air 09/20/24 08:00 09/20/24 09:11 09/20/24 08:00 09/20/24 09:11 09/20/24 08:00 09/20/24 08:00 Narrative Exam PE: Gen: Well-developed and well-nourished. HEENT: NCAT, PERRLA, EOMI, MMM, anicteric conjunctivae. CVS: normal S1 and S2. RRR. No M/R/G. Resp: CTA B/L. No rhonchi, rales, crackles or wheezing. Abd: soft, non-tender, non-distended. MSK: Good ROM in BUE & BLE. No rash. Neuro: CN II-XII grossly intact. Strength 5/5 in BUE & BLE. Alert and oriented x3. Psych: appropriate mood and affect. Objective Labs 09/20/24 05:05 09/20/24 05:05 Labs: Laboratory Results - last 24 hr 09/20/24 05:05 WBC 7.3 RBC 3.74 L Hgb 10.9 L Hct 33.4 L MCV 89 MCH 29.1 MCHC 32.6 RDW Std Deviation 43.8 Plt Count 311 D Neut % (Auto) 62 Lymph % (Auto) 23 [place] % (Auto) 11 Eos % (Auto) 3 Baso % (Auto) 1 Neut # (Auto) 4.5 Lymph # (Auto) 1.7 [place] # (Auto) 0.8 Eos # (Auto) 0.3 Baso # (Auto) 0.1 Immature Gran # (Auto) 0.03 H Absolute Nucleated RBC 0.00 Immature Gran % 0 Nucleated RBC % 0 Sodium 136 Potassium 3.7 Chloride 104 Carbon Dioxide 21.2 Anion Gap 11 BUN 15 Creatinine 1.4 H Estim Creat Clear Calc 50.1 L eGFR 47 L BUN/Creatinine Ratio 11 L Glucose 168 H D Calculated Osmolality 276 Calcium 8.7 Corrected Calcium 8.9 Magnesium 1.7 Total Bilirubin 0.4 AST < 10 ALT 9 L Alkaline Phosphatase 52 Total Protein 6.4 Albumin 3.7 Globulin 2.7 Albumin/Globulin Ratio 1.4 Quality Measures Quality Measures sepsis Current suspected stage: ruled out Possible source: genitourinary Blood cultures ordered: yes Antibiotic ordered: Yes Assessment & Plan Assessment Current Active Medications: Generic Name Dose Route Start Last Admin Trade Name Freq PRN Reason Stop Dose Admin Acetaminophen 650 mg 09/18/24 03:16 09/19/24 08:12 Acetaminophen 325 Mg Tablet PO 10/18/24 03:15 650 mg Q6H PRN Administration Fever >100.3 or pain Protocol Hydrocodone Bitart/Acetaminophen 1 tab 09/18/24 03:40 09/18/24 13:36 Hydrocodone/Apap 5/325 Tablet PO 09/23/24 03:39 1 tab Q4HR PRN Administration pain 6-10 Calcium Carbonate 600 mg 09/18/24 09:00 09/20/24 09:11 Calcium Carbonate 600 Mg Tablet PO 10/18/24 08:59 600 mg QDAY ROSETTE Administration Dextrose 25 ml 09/18/24 03:35 Dextrose 50%-Water Inj 50 Ml Syringe IV 10/18/24 03:34 Q15MIN PRN BG 50-70 responsive npo pt Dextrose 50 ml 09/18/24 03:35 Dextrose 50%-Water Inj 50 Ml Syringe IV 10/18/24 03:34 Q15MIN PRN BG <50 OR BG <70 & pt unresponsive Glucagon 1 mg 09/18/24 03:35 Glucagon Inj 1 Mg Vial IM Q15MIN PRN BG <70, and no IV access Heparin Sodium (Porcine) 5,000 unit 09/18/24 21:00 09/19/24 20:27 Heparin Sod Inj 5000 Unit/Ml Vial SC 10/02/24 20:59 Not Given BID ROSETTE Sodium Chloride 1,000 mls @ 80 mls/hr 09/18/24 03:30 09/20/24 03:57 Ns IV 10/18/24 03:29 80 mls/hr .[id number] ROSETTE Administration Ceftriaxone Sodium/Dextrose 1 gm in 50 mls @ 100 mls/hr 09/19/24 11:07 09/20/24 09:11 Rocephin/D5w 1gm Iv Premix IV 09/26/24 11:06 100 mls/hr QDAY ROSETTE Administration Insulin Human Lispro 0 unit 09/18/24 07:30 09/20/24 09:17 Insulin Lispro (Admelog) 1 Unit/0.01 Ml Unit SC 10/18/24 07:29 1 unit AC ROSETTE Administration Protocol Metoprolol Tartrate 25 mg 09/18/24 09:10 09/20/24 09:11 Metoprolol Tartrate 25 Mg Tablet PO 10/18/24 09:09 25 mg BID ROSETTE Administration Ondansetron HCl 4 mg 09/18/24 03:16 09/18/24 14:14 Ondansetron Inj 2 Mg/Ml Inj 2 Ml IV 10/18/24 03:15 4 mg Q6H PRN Administration NAUSEA OR VOMITING Protocol Patient Own Medication 3 ea 09/18/24 21:00 09/20/24 09:12 Patient's Own Med 1 Ea Ea PO 10/18/24 20:59 3 tab BID ROSETTE Administration Patient Own Medication 1 ea 09/18/24 21:00 09/20/24 09:12 Patient's Own Med 1 Ea Ea PO 10/18/24 20:59 1 ea BID ROSETTE Administration Prednisone 2.5 mg 09/18/24 11:45 09/20/24 09:11 Prednisone 5 Mg Tablet PO 10/18/24 11:44 2.5 mg QDAY ROSETTE Administration Sennosides 1 tab 09/18/24 03:16 Senna Tablet PO 10/18/24 03:15 QDAY PRN constipation Protocol Plan 44 y/o F with PMHx of CKD 3 s/p kidney transplant, hypertension, frequent UTIs with chief complaint of UTI . She endorses increased urinary frequency, pressure, burning since Tuesday. Also endorses headache, fever that started Tuesday night. Patient to be admitted for IV antibiotics and manage in setting of UTI. Nephrology consulted for renal transplant. #CKD stage 3b s/p renal transplant BUN 18, creatinine 1.5 (appears to be around baseline). Patient had renal transplant, currently on immunosuppressive therapy. -Continue home prednisone, cyclosporine, mycophenolate -Encourage oral hydration -Renally dose meds -Monitor renal function -Avoid nephrotoxins #Complicated UTI Presented with complaint of fevers, chills, nausea, dysuria. Has approximately 2?3 UTIs per year since her kidney transplant. Urine cultures typically positive for E. coli, no noticeable history of ESBL. Leukocytosis 13, BUN 18, creatinine 1.5 (appears to be around baseline) UA positive for UTI with leukocyte esterase, WBC 270. Patient currently on Rocephin. Patient showed improvement in subjective symptoms and WBCs on Zosyn. Urine cultures positive for pansensitive Klebsiella, blood cultures negative. -Recommend transitioning from zosyn to either augmentin or levaquin in anticipation of discharge. -Patient clear for discharge from nephrology perspective. #Non insulin dependent type 2 diabetes #Hx HTN Management as per primary team. Thank you for allow us to participate in the care of this patient. Plan of care discussed attending Dr. Chappell. Braulio Mayen MD PGY?1 Attending Provider Attestation/Addendum Patient seen and examined with resident physician Dr. Huffman. Note reviewed, agree with findings and recommendations. Patient admitted with UTI
[2024-09-20 12:00] VITALS: BP 163/96; PULSE 62; RESP 16; TEMP 36.6; O2SAT 98
--- NOTE | 2024-09-20 14:21 | PD.RESDS ---
Planned Discharge Date 09/20/24 DS: Providers Provider Date of admission: 09/18/24 03:16 Primary care physician: Physician No Primary/Family Admitting Provider: Benjie Stephens MD Attending Provider on Admission: Kai Lynch DO Consults: 09/18/24 08:42 Consult to Nephrology Routine Comment: Kidney Transplant. Recurrent UTI Consulting Provider: Tesfaye Chappell Attending Provider on DC: Kai Lynch DO Discharging Provider: Yogesh Raphael MD DS: Diagnosis Problem List Completed Was Problem List Reviewed/Reconciled?: Yes Hospital Course Hospital Course Hospital course: Kaylyn Wright is a 44 yr female with PMH of CKD 3 s/p kidney transplant, hypertension, frequent UTIs with chief complaint of UTI . She endorses increased urinary frequency, pressure, burning since Tuesday. Also endorses headache, fever that started Tuesday night. Patient to be admitted for IV antibiotics and manage in setting of UTI. Patient came in and found to have 2 or more SIRS criteria and was evaluated for sepsis. However, based upon further work-up, sepsis was ruled out due to no evidence of end organ damage, pt not on mechanical ventilation and is on room air. Her urine culture grew Klebsiella pneumonia pansensitive to all tested antibiotics. She was treated with ceftriaxone 1 g IV daily from 09/18 - 09/20 after which her symptoms completely resolved. She will be discharged on levofloxacin 750 Mg p.o. daily for 10 days to complete the course of antibiotics. For her CKD stage IIIb s/p renal transplant, per home immunosuppressants were resumed while in hospital. These included cyclosporine 125 Mg p.o. twice daily, mycophenolate mofetil 550 Mg p.o. twice daily and prednisone 2.5 Mg p.o. daily. All patient's labs are now returning to her baseline. Patient is now clinically stable and fit for discharge to home. Discharge plan: 1. Complicated Klebsiella pneumonia UTI?resolving 2. Sepsis ruled out 3. CKD stage IIIb s/p renal transplant 4. [id number] diabetes mellitus type 2 5. Primary hypertension Discharge plan: ? You have been started on antibiotic levofloxacin for your UTI. From tomorrow, take 1 tablet once a day for the next 10 days to complete the course. ? Continue the rest of your home medication as before ? Follow-up with your PCP for referral to urology for your recurrent UTIs. ? Follow-up with nephrology, Dr Chappell within 1-2 weeks of discharge. ? Continue follow-up with your transplant team. - Follow up with your primary care physician within 1 week of discharge. If you do not have a primary care physician, please follow up with the [facility] Residents clinic ([phone]) ? If you experience any new, worsening or persistent symptoms either call your primary doctor, or dial 911 or present to the emergency department. We are grateful to be able to participate in Ms. Wright's care. We wish her the best. Plan of care discussed with Attending Dr. Syed Raphael MD PGY 1 Disclaimer: This note was dictated by speech recognition. Minor errors in six sigma project manager may be present due to voice recognition software. Time Spent with Patient Time attestation: Total time spent providing and/or coordinating discharge services: Time spent: Greater than 30 minutes (43) Exam Vital Signs Temp Pulse Resp BP Pulse Ox O2 Del Method 97.9 F 62 16 163/96 H 98 Room Air 09/20/24 12:00 09/20/24 12:09/20/24 12:00 09/20/24 12:00 09/20/24 12:09/20/24 12:00 Narrative Exam Constitutional Alert, oriented x 3 and comfortable HEENT Vision grossly intact. Patent nares. Trachea midline Respiratory Chest normal on inspection and clear auscultation bilaterally Cardiovascular S1 and S2 audible, RRR. No murmurs carotid bruit. No gross JVD. Abdominal Soft and non tender to palpation in all quadrants. BS + Genitourinary No bladder tenderness, no flank pain. Normal to palpation Musculoskeletal Extremities tone within normal limits. No LE edema. Neurological CN II - XII grossly intact. Extremity motor and sensation grossly intact. Skin Warm, dry and intact. No apparent lesions. Psychiatric Patient has good affect, is cooperative Discharge Plan Plan Patient Disposition: HOME (Self Care) Patient condition on transfer: Stable and Benefits outweigh risks Care Plan Goals: ? You have been started on antibiotic levofloxacin for your UTI. From tomorrow, take 1 tablet once a day for the next 10 days to complete the course. ? Continue the rest of your home medication as before ? Follow-up with your PCP for referral to urology for your recurrent UTIs. ? Follow-up with nephrology, Dr Chappell within 1-2 weeks of discharge. ? Continue follow-up with your transplant team. - Follow up with your primary care physician within 1 week of discharge. If you do not have a primary care physician, please follow up with the [facility] Residents clinic ([phone]) ? If you experience any new, worsening or persistent symptoms either call your primary doctor, or dial 911 or present to the emergency department. Prescriptions/Referrals Prescriptions/Med Rec: New levofloxacin 750 mg tablet 750 mg PO QDAY 10 Days Qty: 10 0RF Rx Instructions: Start first dose on 09/21/2024 fluconazole [Diflucan] 200 mg tablet 200 mg PO .q72hr 3 Days Qty: 3 0RF Rx Instructions: 200mg q72hrs for 3 doses for Vulvovaginal candidiasis Continued glipizide [Glucotrol XL] 10 mg Tablet Extended Release 24hr 10 mg PO BID prednisone 2.5 mg tablet 2.5 mg PO DAILY metoprolol tartrate 50 mg Tablet 50 mg PO BID mycophenolate sodium 180 mg tablet,delayed release (DR/EC) 540 mg PO BID cyclosporine modified 100 mg capsule 100 mg PO BID Referrals: No Primary/Family,Physician [Primary Care Provider] - Tesfaye Chappell MD [Physician] - Patient/Caregiver Discharge Instructions Education Materials: [employer] Women Print Language: Palestinian Stand Alone Forms: Lo Award Info., Patient Portal Info Letter, Work/Release Restrictions Discharge Order Discharge Orders: Discharge (Routine); Ordered 09/20/24 Ordered By: Yogesh Raphael Quality Discharge Quality Measures VTE prophylaxis Attestestation Attestation I have discussed and was present for the essential components of the discharge history, physical examination, diagnosis, and discharge treatment plan with the resident. I agree with the patient's discharge care as documented by the resident and amended herein by me. Sid Lynch, . The patient understood all discharge instructions, all questions were answered satisfactorily. The patient was instructed to return to the Emergency Department is symptoms worsened or persisted. Patient will be discharged on a 10-day course of Levaquin, cleared for discharge by nephrology. Patient significantly improved blood cultures NGTD, urine cultures demonstrated Klebsiella pneumonia, pansensitive. We emphasized the need for urology follow-up and the patient understood for frequent UTIs. Patient was stable, afebrile, tolerating p.o. intake and ambulatory at time of discharge. Although this document has been carefully reviewed, there may still be some phonetic and other typographical errors. These errors are purely grammatical due to imperfections in the software program and should not be construed in any way to compromise the substance of the patient's medical care during this visit.
== END 2024-09-20 12:15 | disposition home or self-care (01) ==
LOC: SERX 09-18 03:18 → SERHOLD 09-18 07:48 → S2NX 09-18 10:55 → S3SX 09-18 13:27
PROVIDERS: Physician Assistant; Admitting Provider Internal Medicine; Emergency Provider Emergency Medicine; Visit Provider Student in an Organized Health Care Education/Training Program
DX: N39.0 Urinary tract infection, site not specified (principal); J15.0 Pneumonia due to Klebsiella pneumoniae; E11.22 Type 2 diabetes mellitus with diabetic chronic kidney disease; I12.9 Hypertensive chronic kidney disease with stage 1 through stage 4 chronic kidney disease, or unspecified chronic kidney disease; N18.32 Chronic kidney disease, stage 3b; Z94.0 Kidney transplant status; B96.29 Other Escherichia coli [E. coli] as the cause of diseases classified elsewhere
CPT/HCPCS: 36415; 76770; 80053; 81001; 81025; 83036; 83605; 83735; 84100; 84145; 85025; 87040; 87077; 87086; 87186; 96361; 96365; 96366; 96372; 96375; 99285; G0378; J0612; J0696; J1644; J1815; J1885; J2405; J2543; J7030; J7512; A9270

== ENCOUNTER 2024-11-06 14:14 | Inpatient (IN) | payer MEDICAID, SELFPAY ==
[2024-11-06 14:14] VITALS: BMI 28.3
--- NOTE | 2024-11-06 14:31 | XR_ITS ---
Examination: CT abdomen and pelvis without contrast. Coronal 3-D reconstructions. Sagittal 2-D reconstructions. Date and time of exam:May 09, 2024, 1712 hours Comparison January 31, 2024 INDICATIONS: Flank pain and urinary tract infections today CTDI: vol (mGy): 8.30 DLP: (mGycm): 475 Technique: Axial images of the abdomen have been obtained, 3 mm slice thickness Intravenous contrast material has not been administered. Low dose protocols were performed. One or more of the following dose reduction techniques were used; automated exposure control, adjustment of the mA and/or KV according to patient size, use of iterative reconstruction technique. Findings: No focal liver or splenic lesions No gallstones No pancreatic or adrenal mass Spleen is not enlarged Endstage bilateral crow kidneys, severe atrophy with subcentimeter renal calcifications, no hydronephrosis Aorta normal size No pericecal inflammatory change Left pelvic transplant kidney with perinephric stranding, no significant hydronephrosis, no renal or ureteral calculi Inflammatory change about the transplant kidney ureter, thickening of the gallbladder wall up to 8 mm The osseous structures are intact IMPRESSION: End-stage atrophic crow kidneys Findings consistent with urinary tract infection involving the transplant kidney, ureteritis and cystitis
[2024-11-06 14:32] VITALS: BP 145/82; PULSE 115; RESP 18; TEMP 37.4; O2SAT 98
[2024-11-06] MEDS: SODIUM CHLORIDE 0.9% 1000 ML 1,000 ML 999 ML IV (15:02)
[2024-11-06 15:53] LABS: Lactate (Lactic Acid) 1.1 mMol/L (0.4-2.0)
[2024-11-06 16:01] LABS: Basophils # (Auto) 0.0 Thou/mm3 (0.0-0.2); Basophils % (Auto) 0 % (0-2.5); Eosinophils # (Auto) 0.0 Thou/mm3 (0.0-0.5); Eosinophils % (Auto) 0 % (0-10); Hematocrit 35.4 % (36.0-46.0); Hemoglobin 11.9 g/dL (12.0-16.0); Immature Granulocytes Auto 0.05 Thou/mm3 (0.00-0.00); Lymphocytes # (Auto) 0.8 Thou/mm3 (1.0-4.8); Lymphocytes % (Auto) 6 % (10-50); Mean Corpuscular HGB Conc 33.6 g/dl (31.0-37.0); Mean Corpuscular Hemoglobin 28.9 pg (25.0-35.0); Mean Corpuscular Volume 86 fL (80-100); Monocytes # (Auto) 1.1 Thou/mm3 (0.0-0.8); Monocytes % (Auto) 8 % (0-12); Neutrophils # (Auto) 11.2 Thou/mm3 (1.8-7.7); Neutrophils % (Auto) 85 % (37-80); Nucleated Red Blood Cell # 0.00 Thou/mm3 (0.00-0.00); Nucleated Red Blood Cell % 0 /100 WBC (0); Platelet Count 343 Thou/mm3 (140-440); RDW Standard Deviation 44.5 fL (36.4-46.3); Red Blood Count 4.12 Miln/mm3 (4.00-5.20); White Blood Count 13.2 Thou/mm3 (3.6-11.0)
[2024-11-06 16:26] LABS: HCG,Qualitative Serum Negative
[2024-11-06 16:31] LABS: Alanine Aminotransferase 9 U/L (10-49); Albumin, Serum 3.9 gm/dL (3.5-5.0); Albumin/Globulin Ratio 1.3 (1.2-2.2); Alkaline Phosphatase 62 U/L (46-116); Anion Gap 10 (7-16); Aspartate Amino Transferase < 10 U/L (0-34); BUN/Creatinine Ratio 11 Ratio (12-20); Bilirubin,Total 0.8 mg/dL (0.3-1.2); Blood Urea Nitrogen 17 mg/dL (9-23); Calcium 8.4 mg/dL (8.3-10.6); Calcium (Corrected) 8.5 mg/dL (8.5-10.1); Carbon Dioxide 23.3 mMol/L (20.0-31.0); Chloride 105 mMol/L (98-107); Creatinine (Component) 1.6 mg/dL (0.6-1.3); Estimated Creatinine Clearance 41.9 mL/min (>60); Globulin 3.0 gm/dL (2.3-3.5); Glucose 198 mg/dL (74-106); Osmolality,Calculated 283 (275-295); Potassium 4.0 mMol/L (3.4-5.1); Sodium 138 mMol/L (136-145); Total Protein 6.9 gm/dL (5.7-8.2); eGFR 40 See Note
[2024-11-06 17:54] VITALS: BP 121/74; PULSE 90; RESP 18; TEMP 37.1; O2SAT 98
[2024-11-06] MEDS: ONDANSETRON INJ 2 MG/ML INJ 2 ML 4 MG IVP ×2 (17:59→21:58)
[2024-11-06] MEDS: MORPHINE SULF INJ 10 MG/ML VIAL 4 MG IVP (17:59)
--- NOTE | 2024-11-06 19:06 | EDNOTE_ITS ---
ED Abdominal Pain RME/HPI General Chief Complaint: General Adult/Misc Complain Stated complaint: UTI Time seen by provider: 11/06/24 14:15 Arrival date/time: This is a case of 44 yr female with PMH of CKD 3 s/p kidney transplant, hypertension, frequent UTIs diabetes ckd came in in the emergency room due to abdominal pain radiating to the flank associated with nausea vomiting painful urination urgency and increased frequency no hematuria no fever no chills no nausea no vomiting no back pain Source: patient Limitations: no limitations Related Data Home Medications ?Medication ?Instructions ?Recorded ?Confirmed cyclosporine modified 100 mg 100 mg PO BID 08/11/22 capsule glipizide 10 mg tablet, extended 10 mg PO BID 08/11/22 09/18/24 release 24 hr (Glucotrol XL) metoprolol tartrate 50 mg tablet 50 mg PO BID 08/11/22 09/18/24 mycophenolate sodium 180 mg 540 mg PO BID 08/11/22 tablet,delayed release prednisone 2.5 mg tablet 2.5 mg PO DAILY 08/11/22 Allergies Allergy/AdvReac Type Severity Reaction Status Date / Time codeine Allergy Severe Rash Verified 11/06/24 14:16 Fish Containing Products Allergy Severe Difficulty Verified 11/06/24 14:16 Breathing vancomycin Allergy Severe RASH Verified 11/06/24 14:16 Review of Systems Review of Systems Systems Reviewed: All systems reviewed, normal except as documented Constitutional Constitutional: Reports system reviewed and no additional complaints, except as documented and Reports as per HPI ENT Ears, Nose, Mouth, and Throat: Denies dysphagia and Denies odynophagia Cardiovascular Cardiovascular: Reports system reviewed and no additional complaints, except as documented and Reports as per HPI Gastrointestinal Gastrointestinal: Reports system reviewed and no additional complaints, except as documented, Reports as per HPI, Denies abdominal pain, Denies belching, Denies bloating, Denies change in bowel habits, Denies change in stool character, Denies coffee ground emesis, Denies constipation, Denies cramping, Denies diarrhea, Denies dyspepsia, Denies dysphagia, Denies early satiety, Denies excessive flatus, Denies fecal incontinence, Denies heartburn, Denies hematemesis, Denies hematochezia, Denies loose stools, Denies melena, Reports nausea, Denies odynophagia, Denies tenesmus and Reports vomiting Genitourinary Genitourinary: Reports system reviewed and no additional complaints, except as documented, Reports as per HPI, Denies abnormal vaginal bleeding, Reports dysuria, Denies hematuria, Denies menorrhagia, Denies metrorrhagia, Denies urinary incontinence, Denies urinary hesitancy, Reports urinary urgency, Denies vaginal discharge, Denies vaginal dryness, Denies vaginal odor and Denies vaginal pruritus Musculoskeletal Musculoskeletal: Reports system reviewed and no additional complaints, except as documented and Reports as per HPI Neurologic Neurologic: Reports system reviewed and no additional complaints, except as documented and Reports as per HPI Past Medical History Past Medical History NEUROLOGIC: Negative Neurological Disorders CARDIAC: Positive Cardiac Disorders and Hypertension; Negative Congestive Heart Failure RESPIRATORY: Negative Chronic Obstructive Pulmonary Disease (COPD) or Asthma GASTROINTESTINAL: Negative Gastrointestinal Disorders GENITOURINARY: Positive Genitourinary Disorders and Renal Disease REPRODUCTIVE: Negative Pelvic Inflammatory Disease MUSCULOSKELETAL: Negative Musculoskeletal Disorders ENDOCRINE: Positive Endocrine Disorders and Diabetes Mellitus Type 2; Negative Diabetes Mellitus Type 1 HEMATOLOGIC: Negative Blood Disorders or Sickle Cell Disease OTHER HISTORY: Positive Blood Transfusions and Organ Transplant Surgical History SURGICAL: Positive Organ Transplant Social History SMOKING STATUS: Never smoker SECOND HAND EXPOSURE: No ED Exam General Limitations: Present no limitations General appearance: Present alert and in no apparent distress Head Head exam: Present atraumatic, normocephalic and normal inspection Eye Eye exam: Present normal appearance, PERRL and EOMI ENT ENT exam: Present normal exam, normal oropharynx and mucous membranes moist Neck Neck exam: Present normal inspection, full ROM and trachea midline; Absent tenderness, meningismus, lymphadenopathy or thyromegaly Chest Chest inspection: Present normal inspection and symmetric chest wall rise; Absent tenderness, rash or abscess Respiratory Respiratory exam: Present normal lung sounds bilaterally; Absent respiratory distress, wheezes, stridor, accessory muscle use or prolonged expiratory phase Cardiovascular Cardiovascular exam: Present regular rate, normal rhythm and normal heart sounds; Absent bradycardia, tachycardia, irregular rhythm, systolic murmur or diastolic murmur Abdominal Exam Abdominal exam: Present soft, tenderness (Mild tenderness suprapubic area bilateral flank no CVA tenderness) and normal bowel sounds; Absent distention, guarding, rebound, rigidity, diminished bowel sounds, hyperactive bowel sounds, obturator sign, Martínez's sign, Rovsing's sign, tenderness at McBurney's Point or hernia Extremities Exam Extremities exam: Present normal inspection and full ROM Back Exam Back exam: Present normal inspection and full ROM Neurological Exam Neurological exam: Present alert, oriented X3, CN II-XII intact, normal gait and reflexes normal; Absent motor sensory deficit Psychiatric Psychiatric exam: Present normal affect and normal mood Skin Skin exam: Present warm, dry, intact and normal color Course Quality Measures none Orders Category Date Time Status CT abdomen pelvis wo con Stat Exams 11/06/24 14:31 Completed Blood Culture (Lab) Stat Lab 11/06/24 15:08 Received CBC Stat Lab 11/06/24 15:31 Completed CMP [Comprehensive Metabolic Panel] Stat Lab 11/06/24 15:31 Completed GC Culture Stat Lab 11/06/24 18:39 Ordered HCG,Qualitative Serum Stat Lab 11/06/24 15:31 Completed Lactic Acid [Lactate (Lactic Acid)] Stat Lab 11/06/24 15:31 Completed Urine Culture Stat Lab 11/06/24 17:10 Received Morphine Inj Med 11/06/24 14:34 Discontinued 4 mg IVP X1 ONE Ondansetron Inj [Zofran Inj] Med 11/06/24 14:31 Discontinued 4 mg IVP X1 ONE Sodium Chloride 0.9% 1000 ml [Ns] 1,000 ml Med 11/06/24 14:33 Discontinued IV 999 mls/hr cefTRIAXone [Rocephin] 2 gm Med 11/06/24 19:04 Ordered SODIUM CHLORIDE 0.9% (Popper) [Ns 0.9% (P)] 50 ml IV X1 Vital Signs Vital signs: Vital Signs Temperature 99.3 F 11/06/24 14:32 Pulse Rate 115 H 11/06/24 14:32 Respiratory Rate 18 11/06/24 14:32 Blood Pressure 145/82 H 11/06/24 14:32 Pulse Oximetry (%) 98 11/06/24 14:32 Oxygen Delivery Method Room Air 11/06/24 14:32 Patient is afebrile mild tachycardic not tachypneic not hypoxic oxygen saturation is 98% in room air Abdominal Pain MDM MDM Narrative MDM Narrative:: This is a case of 44 yr female with PMH of CKD 3 s/p kidney transplant, hypertension, frequent UTIs diabetes ckd came in in the emergency room due to abdominal pain radiating to the flank associated with nausea vomiting painful urination urgency and increased frequency no hematuria no fever no chills no nausea no vomiting no back pain physical examination patient is awake alert oriented not in distress nontoxic looking well-hydrated well-nourished patient abdominal exam benign soft nonsurgical no guarding no rebound no rigidity mild tenderness on the suprapubic and bilateral flank no CVA tenderness negative psoas negative straight and negative Rovsing's negative Homer's negative Lynn sign negative CVA tenderness patient blood test showed leukocytosis at 13.2 no anemia platelets normal no electrolyte imbalance patient creatinine went up to 1.6-1.4 his blood glucose is 198 hyperglycemia no diarrhea lipase normal urinalysis showed blood in WBC in the urine suggestive of urinary tract infection CT scan of the abdomen pelvis showed cystitis UTI at this point patient was given morphine patient states that she is not allergic to morphine she was observed no allergic reaction noted a bolus of normal saline and started and ceftriaxone IV. Still pending lactic acid at this point decision to admit the patient patient states that every time that she has the symptoms she is admitted due to IV antibiotics I discussed with Dr. Cisneros discussed patient condition history and physical examination result of the blood test and CT scan agreed and accept patient admission patient discussed with the treatment plan admission and agreed Patient data External records reviewed:: [facility] previous records Clinical information provided by:: patient Social determinants that could affect healthcare access:: none Patient has the following chronic illnesses:: None How is presenting disease/condition affected by chronic disease/condition?: no chronic disease Evaluation data The following diagnostics were reviewed and interpreted by me:: lab results and radiology exam(s) Lab and/or radiology exams considered but not ordered:: Reviewed Interpretation Summary: Reviewed Medications / Prescriptions Medications or Prescriptions considered but not ordered:: Given Medication administrations:: Medication Administration History Ceftriaxone Sodium 2 gm/ (Sodium Chloride) 50 mls @ 100 mls/hr IV X1 ONE Stop: 11/06/24 19:33 Discontinued Medications Sodium Chloride (Ns) 1,000 mls @ 999 mls/hr IV .Q1H1M ONE Stop: 11/06/24 15:33 Last Infusion: 11/06/24 18:00 Dose: Infused Documented By: Admin: 11/06/24 15:02 Dose: 999 mls/hr Documented By: ORAL Morphine Sulfate (Morphine Sulf Inj 10 Mg/Ml Vial) 4 mg IVP X1 ONE Stop: 11/06/24 14:35 Last Admin: 11/06/24 17:59 Dose: 4 mg Documented By: MAX Ondansetron HCl (Ondansetron Inj 2 Mg/Ml Inj 2 Ml) 4 mg IVP X1 ONE; Protocol Stop: 11/06/24 14:32 Last Admin: 11/06/24 17:59 Dose: 4 mg Documented By: MAX Given Consultations Consultation(s) initiated? (list below): Yes Consultation #1 (Physician, Specialty, Details): Dr Cisneros accept patient admission Diagnosis Differential diagnosis abdominal pain: abdominal pain, acute appendicitis, calculus of kidney, diverticulitis, gastroenteritis and other (Urinary tract infection) Most likely diagnosis given after review of the tests above:: Urinary tract infection cystitis Admission Indicated Admission indicated?: not indicated Explain why admission is indicated or not indicated:: Not indicated Admission Request Was there a request for admission?: No Admission Attestation Admission request attestation: Not indicated Disposition Plan Disposition Plan: Discharge Discharge Attestation Discharge Attestation: The patient and all family members were given an opportunity to ask questions and understood the discharge instructions. Discharge instructions specifically effects, indications for sooner follow up or return to the emergency department, and the expected course of current diagnosis. Patient condition: Stable Discharge Plan Plan Patient Disposition: Admit Acute Care w/in Hospital Patient condition on transfer: Stable Prescriptions/Referrals Prescriptions/Med Rec: No Action glipizide [Glucotrol XL] 10 mg Tablet Extended Release 24hr 10 mg PO BID prednisone 2.5 mg tablet 2.5 mg PO DAILY metoprolol tartrate 50 mg Tablet 50 mg PO BID mycophenolate sodium 180 mg tablet,delayed release (DR/EC) 540 mg PO BID cyclosporine modified 100 mg capsule 100 mg PO BID Referrals: Tesfaye Chappell MD [Primary Care Provider] - In 1 week Problem List Clinical Impression: Abdominal pain, Recurrent urinary tract infection, Hyperglycemia, Cystitis Patient/Caregiver Discharge Instructions Education Materials: Abdominal Pain, High Blood Sugar (Hyperglycemia), Urinary Tract Infections in Women, ED CYSTITIS Female Adult Print Language: [place] Citizen Stand Alone Forms: Lo Award Info., Patient Portal Info Letter PA/ACTIVITIES AIDE Supervising Physician PA/ACTIVITIES AIDE Supervising Physician: dr clement
[2024-11-06 19:19] VITALS: TEMP 37.3
[2024-11-06] MEDS: cefTRIAXone 2 GM in SODIUM CHLORIDE 0.9% (Popper) 50 ML IV (19:23)
--- NOTE | 2024-11-06 19:55 | ESHP_ITS ---
<Statement entered by Douglas Holley MD - 11/07/24 05:42> I have personally seen and examined the patient. I agree with the resident's assessment and plan as documented below. Douglas Holley, PGY-2 Internal Medicine - [facility] Documentation for date of: 11/06/24 HPI History of Present Illness History of present illness: Kaylyn Wright is a 44-year-old F with a PMH of CKD 3 S/P kidney transplant, hypertension, diabetes, frequent UTIs who presents today with a chief complaint of UTI symptoms. Patient states that on Tuesday she had a fever and her urination became more frequent but that today she has begun having an uncomfortable feeling while urinating. She also endorses some back pain and sweating that started last week but currently did not have either symptom. Patient had previously been seen on 09/18/24 and hospitalized for urosepsis. Patient says that when she has gotten UTIs in the past, she had been treated with Rocephin and Zosyn. According to patient, she had her kidney transplant done at [facility] in 2010 and that she was faithfully taking her cyclosporine, mycophenolate, and prednisone. 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 Patient is sexually active but does not use protection. In the ED, vitals showed: BP 145/82 HR 115 RR 18 Temp 99.3 SpO2 98 on room air ED Course: CBC showed high WBC 13.2 w/ neutrophilic predominance (85%). CMP showed high creatinine 1.6, low eGFR 40, and high glucose 198. UA was turbid and showed 3+ glucose, 1+ ketones, 1+ blood, high RBC 20, high WBC 325, positive leukocyte esterase, and +1 bacteria. In the ED, patient was started on ceftriaxone and given 1L NS bolus. On Imaging: CTAP showed end-stage atrophic [place] kidneys and findings consistent with urinary tract infection involving the transplant kidney, ureteritis and cystitis. Patient was admitted for the work-up and management of complicated UTI. Nephrology (Dr. Chappell) was consulted and is closely following the case. Review of Systems Review of Systems Narrative Review of Systems: General: Denies fevers or chills HEENT: Denies congestion or sore throat Heart: Denies chest pain or palpitations Lungs: Denies shortness of breath or cough Abdomen: Endorses nausea. Denies abdominal pain, vomiting, constipation, diarrhea, or blood in stool Genitourinary: Endorses dysuria and urinary frequency. Denies costovertebral tenderness or hematuria Neurology: Denies any changes in vision, weakness or difficulty speaking Review of systems otherwise negative except what is mentioned above. Past Medical History Past Medical History NEUROLOGIC: Negative Neurological Disorders CARDIAC: Positive Cardiac Disorders and Hypertension; Negative Congestive Heart Failure RESPIRATORY: Negative Chronic Obstructive Pulmonary Disease (COPD) or Asthma GASTROINTESTINAL: Negative Gastrointestinal Disorders GENITOURINARY: Positive Genitourinary Disorders and Renal Disease REPRODUCTIVE: Negative Pelvic Inflammatory Disease MUSCULOSKELETAL: Negative Musculoskeletal Disorders ENDOCRINE: Positive Endocrine Disorders and Diabetes Mellitus Type 2; Negative Diabetes Mellitus Type 1 HEMATOLOGIC: Negative Blood Disorders or Sickle Cell Disease OTHER HISTORY: Positive Hospitalization, Blood Transfusions and Organ Transplant Family History FAMILY HISTORY: Positive Family Genitourinary Problems Surgical History SURGICAL: Positive Organ Transplant Social History SMOKING STATUS: Never smoker SECOND HAND EXPOSURE: No Exam Vital Signs Temp Pulse Resp BP Pulse Ox O2 Del Method 99.2 F 90 18 121/74 98 Room Air 11/06/24 19:19 11/06/24 17:54 11/06/24 17:54 11/06/24 17:54 11/06/24 17:54 11/06/24 17:54 Narrative Exam Physical Exam: General: Alert, no acute distress. Skin: Warm, dry, intact, no obvious rash. Head: Normocephalic, atraumatic. Eye: Normal conjunctiva, PERRL. Throat: Oral mucosa moist. No obvious lesions in oropharynx. Cardiovascular: Tachycardic, regular rhythm. No murmur, +S1/S2. Respiratory: Lungs are clear to auscultation, respirations unlabored, no crackles, no wheezing. Gastrointestinal: Soft, nontender, non-distended. No guarding or rebound tenderness. Extremities: No edema, no cyanosis, no clubbing. 2+ radial pulse bilaterally, 2+ posterior tibial pulse bilaterally. Neuro: No focal deficits observed. Conversant, moving all extremities. No overt cerebellar signs/incoordination. Psychiatric: Cooperative, appropriate affect. Results: Labs 11/06/24 15:31 11/06/24 15:31 Labs: Short CBC 11/06/24 Range/Units 15:31 WBC 13.2 H (3.6-11.0) Thou/mm3 Hgb 11.9 L (12.0-16.0) g/dL Hct 35.4 L (36.0-46.0) % Plt Count 343 (140-440) Thou/mm3 BMP 11/06/24 15:31 Sodium 138 Potassium 4.0 Chloride 105 Carbon Dioxide 23.3 BUN 17 Creatinine 1.6 H Glucose 198 H Calcium 8.4 Liver Function 11/06/24 Range/Units 15:31 Total Bilirubin 0.8 (0.3-1.2) mg/dL AST < 10 (0-34) U/L ALT 9 L (10-49) U/L Alkaline Phosphatase 62 (46-116) U/L Albumin 3.9 (3.5-5.0) gm/dL Quality Measures Quality Measures none Medications Home Medications and Allergies Home Medications ?Medication ?Instructions ?Recorded ?Confirmed ?Type cyclosporine modified 100 mg 100 mg PO BID 08/11/22 History capsule glipizide 10 mg tablet, extended 10 mg PO BID 08/11/22 11/06/24 History release 24 hr (Glucotrol XL) metoprolol tartrate 50 mg tablet 50 mg PO BID 08/11/22 11/06/24 History mycophenolate sodium 180 mg 540 mg PO BID 08/11/2212/24 History tablet,delayed release prednisone 2.5 mg tablet 2.5 mg PO DAILY 08/11/2212/24 History glipizide 2.5 mg tablet 25 mg PO BID 11/06/24 History Allergies Allergy/AdvReac Type Severity Reaction Status Date / Time codeine Allergy Severe Rash Verified 11/06/24 14:16 Fish Containing Products Allergy Severe Difficulty Verified 11/06/24 14:16 Breathing vancomycin Allergy Severe RASH Verified 11/06/24 14:16 Visit Medications Discontinued Medications Sodium Chloride (Ns) 1,000 mls @ 999 mls/hr IV .Q1H1M ONE Stop: 11/06/24 15:33 Last Infusion: 11/06/24 18:00 Dose: Infused Ceftriaxone Sodium 2 gm/ (Sodium Chloride) 50 mls @ 100 mls/hr IV X1 ONE Stop: 11/06/24 19:33 Last Admin: 11/06/24 19:23 Dose: 100 mls/hr Morphine Sulfate (Morphine Sulf Inj 10 Mg/Ml Vial) 4 mg IVP X1 ONE Stop: 11/06/24 14:35 Last Admin: 11/06/24 17:59 Dose: 4 mg Ondansetron HCl (Ondansetron Inj 2 Mg/Ml Inj 2 Ml) 4 mg IVP X1 ONE; Protocol Stop: 11/06/24 14:32 Last Admin: 11/06/24 17:59 Dose: 4 mg Assessment & Plan Assessment Kaylyn Wright is a 44-year-old F with a PMH of CKD 3 S/P kidney transplant, hypertension, diabetes, frequent UTIs who presents today with a chief complaint of UTI symptoms. Patient was admitted for the work-up and management of complicated UTI. #Complicated UTI #Urethritis Upon admission, labs were significant for elevated WBC 13.2 (85% neutrophilic predominance), turbid UA with 3+ glucose, 1+ ketones, 1+ blood, high RBC 30, high WBC 325, positive LE, and +1 bacteria Patient has no history of ESBL-related UTI -Started patient on IV ceftriaxone -Ordered bilateral renal ultrasound to check for renal calculi -Could consider ordering tests for gonorrhea or chlamydia -Pain management as necessary -Nephrology has been consulted, awaiting recommendations -Patient has been educated on the importance of post-coital micturition in reducing the risk of future UTIs #Nausea -Was given Zofran which was not effective -Given a scopolamine patch (chronic) #Kidney transplant patient CKD Stage 3B s/p renal transplant -Restarted home medications of mycophenolate sodium 540 mg BID, cyclosporine 100 mg BID, and prednisone 2.5 mg qD #T2DM -Started on insulin sliding scale Hospital Management: Disposition: undergoing workup and management of complicated UTI Fluids: none Diet: renal DVT Prophylaxis: SCDs GI Prophylaxis: Zofran Bowel Prophylaxis: senna CODE STATUS: Full Code I have examined the patient and conferred with my attending, Dr. Lynch, and my senior resident, Dr. Holley, regarding them. Gonzalez Cisneros, DO PGY-1 Internal Medicine Attending Provider Attestation/Addendum Nicotine patch ordered after examination of the patient and review of the clinical data I feel that this patient needs admission to the hospital for further treatment/evaluation. I have discussed and was present for the essential components of the history, physical examination, diagnosis, and treatment plan with the resident. I agree with the patient's care as documented by the resident and amended herein by me. Sid Lynch, DO. Although this document has been carefully reviewed, there may still be some phonetic and other typographical errors. These errors are purely grammatical due to imperfections in the software program and should not be construed in any way to compromise the substance of the patient's medical care during this visit. Patient seen and evaluated in the ED patient is a 44-year-old female with a significant past medical history of frequent UTIs, CKD 3 status post renal transplant and type 2 diabetes,, presented to the ED with symptoms of UTI consisting of frequent urination and abdominal discomfort with urination. Patient is known to me, last discharge on 09/20/2024 for complicated UTI from Klebsiella pneumonia at that time. Patient is presently on immunosuppressive medication to include mycophenolate 540 mg BID and cyclosporine 100 mg BID as well as prednisone 2.5 mg daily. Of note, I did recommend that the patient follow-up with urology for frequent UTIs at time of last admission, she states that she has a referral and is in the process of setting up an appointment. In the ED, patient was initially tachycardic however that is resolved, other vital signs were stable and the patient was afebrile. Significant labs include a hemoglobin of 11.9, WBC of 13 and a creatinine of 1.6 however baseline appears to be 1.4. Last A1c on 09/18/2024 was 7.1, a urinalysis was not performed however CT abdomen and pelvis did demonstrate UTI involving the transplanted kidney, ureteritis and cystitis. The patient was given ceftriaxone and 1 L bolus in the ED Patient admitted to [facility] for complicated UTI in setting of renal transplant. Will continue ceftriaxone and fluids. Will continue immunosuppressive medications to include cyclosporine, mycophenolate and prednisone for now unless nephrology suggest otherwise tomorrow. Nephrology has been consulted, Dr Chappell, appreciate recommendations. Will also reconcile and continue additional home meds as appropriate. Urine and blood cultures are pending. Of note, Dr. Chappell was the patient's primary care physician as well however due to insurance issues, she is no longer her PCP apparently.
[2024-11-06 19:56] LABS: Collection Type, Urine Clean Catch
[2024-11-06 20:05] LABS: Bacteria,Urine 1+; Bilirubin,Urine Negative (Negative); Blood,Urine 1+ (Negative); Clarity,Urine Turbid (Clear/Hazy); Color,Urine Lt-Yellow (Lt Yel-Yel); Glucose, Urine 3+ (Negative); Ketones,Urine 1+ (Negative); Leukocyte Esterase,Urine Positive (Negative); Nitrite,Urine Negative (Negative); PH,Urine 5.5 (5.0-7.0); Protein,Urine Trace (Neg - Trace); RBC,Urine 20 /hpf (0-3); Specific Gravity,Urine 1.010 (1.001-1.035); Squamous Epithelial Cell,Urine 10 /hpf (0-5); Urobilinogen,Urine Negative mg/dL (0.0-1.0); WBC,Urine 325 /hpf (0-5)
--- NOTE | 2024-11-06 21:09 | PC.NURSE ---
Pt c/o 02/08 pain. Admission residents made and will place new orders for pain medication.
[2024-11-06] MEDS: MORPHINE SULF INJ 10 MG/ML VIAL IVP (21:29)
[2024-11-06 21:48] VITALS: BP 144/76; PULSE 90; RESP 18; TEMP 36.2; O2SAT 98; BMI 28.3
[2024-11-06] MEDS: HYDROcodone/APAP 5/325 TABLET 1 TAB PO (21:58)
[2024-11-06] MEDS: SCOPOLAMINE 1 MG TDSY TOP (23:12)
[2024-11-07] VITALS: BP 119/65; PULSE 91; RESP 17; TEMP 36.6; O2SAT 94
--- NOTE | 2024-11-07 03:05 | XR_ITS ---
Examination: Retroperitoneal ultrasound, complete Technique: Multiple high resolution grayscale images of the retroperitoneum obtained, including kidneys and bladder. Exam date and time:November 07, 2024 0738 hours INDICATIONS: Urinary tract infections 10 years FINDINGS: No visualization right kidney Left kidney 4.3 cm renal cortex 0.8 cm significant scarring Left transplant kidney 11.7 x 6.9 x 7.3 cm cortex 3.0 cm Minimal hydronephrosis Benign renal cysts, the largest 3.6 cm P word finding 194 cc IMPRESSION: Minimal transplant left hydronephrosis, consider urinary tract infection transplant kidney
[2024-11-07 04:00] VITALS: BP 145/77; PULSE 82; RESP 17; TEMP 36.1; O2SAT 96
[2024-11-07 06:01] LABS: Basophils # (Auto) 0.0 Thou/mm3 (0.0-0.2); Basophils % (Auto) 0 % (0-2.5); Eosinophils # (Auto) 0.1 Thou/mm3 (0.0-0.5); Eosinophils % (Auto) 1 % (0-10); Hematocrit 36.7 % (36.0-46.0); Hemoglobin 11.8 g/dL (12.0-16.0); Immature Granulocytes Auto 0.06 Thou/mm3 (0.00-0.00); Lymphocytes # (Auto) 1.2 Thou/mm3 (1.0-4.8); Lymphocytes % (Auto) 9 % (10-50); Mean Corpuscular HGB Conc 32.2 g/dl (31.0-37.0); Mean Corpuscular Hemoglobin 29.1 pg (25.0-35.0); Mean Corpuscular Volume 91 fL (80-100); Monocytes # (Auto) 1.3 Thou/mm3 (0.0-0.8); Monocytes % (Auto) 10 % (0-12); Neutrophils # (Auto) 10.6 Thou/mm3 (1.8-7.7); Neutrophils % (Auto) 81 % (37-80); Nucleated Red Blood Cell # 0.00 Thou/mm3 (0.00-0.00); Nucleated Red Blood Cell % 0 /100 WBC (0); Platelet Count 322 Thou/mm3 (140-440); RDW Standard Deviation 47.0 fL (36.4-46.3); Red Blood Count 4.05 Miln/mm3 (4.00-5.20); White Blood Count 13.2 Thou/mm3 (3.6-11.0)
[2024-11-07 06:44] LABS: Alanine Aminotransferase 8 U/L (10-49); Albumin, Serum 3.8 gm/dL (3.5-5.0); Albumin/Globulin Ratio 1.3 (1.2-2.2); Alkaline Phosphatase 62 U/L (46-116); Anion Gap 10 (7-16); Aspartate Amino Transferase < 10 U/L (0-34); BUN/Creatinine Ratio 9 Ratio (12-20); Bilirubin,Total 0.8 mg/dL (0.3-1.2); Blood Urea Nitrogen 15 mg/dL (9-23); Calcium 8.7 mg/dL (8.3-10.6); Calcium (Corrected) 8.9 mg/dL (8.5-10.1); Carbon Dioxide 25.1 mMol/L (20.0-31.0); Chloride 102 mMol/L (98-107); Creatinine (Component) 1.6 mg/dL (0.6-1.3); Estimated Creatinine Clearance 41.9 mL/min (>60); Globulin 2.9 gm/dL (2.3-3.5); Glucose 185 mg/dL (74-106); Magnesium 1.8 mg/dL (1.6-2.6); Osmolality,Calculated 279 (275-295); Phosphorous 2.8 mg/dL (2.4-5.1); Potassium 4.5 mMol/L (3.4-5.1); Sodium 137 mMol/L (136-145); Total Protein 6.7 gm/dL (5.7-8.2); eGFR 40 See Note
[2024-11-07] MEDS: INSULIN LISPRO (AdmeLOG) 1 UNIT/0.01 ML UNIT SC ×4 (07:44→21:02)
[2024-11-07 08:00] VITALS: BP 128/82; PULSE 87; RESP 18; TEMP 36.4; O2SAT 98
[2024-11-07] MEDS: MYCOPHENOLIC ACID 180 MG PO ×2 (08:08→21:02)
[2024-11-07] MEDS: cefTRIAXone/D5w 1gm IV premix 1 GM/50 ML BAG IV (08:10)
[2024-11-07] MEDS: ONDANSETRON INJ 2 MG/ML INJ 2 ML 4 MG IVP ×2 (08:44→21:15)
--- NOTE | 2024-11-07 09:14 | PD.RESCONSUL ---
HPI Data of Consult Consult date: 11/07/24 Requesting Physician: Kai Lynch DO Admitting Provider: Kai Lynch DO Attending Provider: Kai Lynch DO Primary Care Provider: Tesfaye Chappell MD Consult Narrative Reason for consult: complicated UTI, hx renal transplant History of present illness: Ms. Kaylyn Wright is 44 yr female with PMH of CKD 3 S/P living unrelated kidney transplant 2010, hypertension, diabetes post transplant, frequent UTIs who presented to ED with chief complaint of dysuria. In the ER-transplant center was called in and requested urology consultation. Nephrology team was consulted for complicated UTI in setting of renal transplant. Symptoms started Tuesday evening with onset of chills and fever. Gradually symptoms progressed to dysuria and bladder discomfort. Patient stated she was able to recognize the symptoms due to recurrent infections. She had living unrelated transplant in 2010 on the left side. She was diagnosed with kidney failure at the age of 26 with extensive family history of kidney disease in mother, father, grandmother, and aunts. None of the family members underwent biopsy of the kidneys. Members have needed to undergo dialysis. Patient was unable to receive any biopsies in the past due to shrunken/shriveled kidneys. Transplant center had recommended that patient be evaluated by urology due to her frequent UTIs. She has been unable to establish care outpatient as of yet. Nephrology team will consult Dr. Lemon who is on board and willing to evaluate patient. Per chart review, no evidence of multidrug-resistant organisms. Denies any headache, abdominal pain, diarrhea. Does endorse some nausea, vomiting, fever, chills. 11/07/2024 white count 13.2, hemoglobin 11.8, platelets 322. Sodium 137, potassium 4.5, BUN 15, creatinine 1.6, GFR 40, calcium 8.9, phosphorus 2.8, magnesium 1.8, LFTs normal last admission her A1c was 7.1. Urinalysis shows significant pyuria. Renal ultrasound showed left to transplant with mild hydronephrosis. Benign renal cysts in the [place] kidneys. CT abdomen and pelvis that showed bilateral end-stage [place] kidneys with severe atrophy. Left allograft with perinephric stranding consistent with a UTI. cc:: cc: Kai Lynch DO Review of Systems Review of Systems Narrative Review of Systems: CONSTITUTIONAL: Patient denies any fever, chills. HEENT: Denies any visual disturbances or hearing problems. CARDIOVASCULAR: Patient denies any chest pain, shortness of breath, swelling in the lower extremities. PULMONARY: Patient denies any shortness of breath, cough. GASTROINTESTINAL: Patient denies any abdominal pain, constipation, nausea, vomiting, diarrhea. GENITOURINARY: Mild discomfort in the left allograft. Minimal dysuria SKIN: Denies any rash. MUSCULOSKELETAL: Denies any muscular skeletal problems of joint pains. NEUROLOGICAL: Denies any neurological problems of strokes, seizures or confusion. Denies any memory problems. PSYCHIATRIC: Denies any depression or anxiety. LYMPHATICS : No lymphadenopathy Past Medical History Past Medical History NEUROLOGIC: Negative Neurological Disorders CARDIAC: Positive Cardiac Disorders and Hypertension; Negative Congestive Heart Failure RESPIRATORY: Negative Chronic Obstructive Pulmonary Disease (COPD) or Asthma GENITOURINARY: Positive Genitourinary Disorders and Renal Disease REPRODUCTIVE: Negative Pelvic Inflammatory Disease MUSCULOSKELETAL: Negative Musculoskeletal Disorders ENDOCRINE: Positive Endocrine Disorders and Diabetes Mellitus Type 2; Negative Diabetes Mellitus Type 1 HEMATOLOGIC: Negative Blood Disorders or Sickle Cell Disease OTHER HISTORY: Positive Hospitalization, Blood Transfusions and Organ Transplant Family History FAMILY HISTORY: Positive Family Genitourinary Problems Surgical History SURGICAL: Positive Organ Transplant Social History SMOKING STATUS: Never smoker SECOND HAND EXPOSURE: No Exam Vital Signs Temp Pulse Resp BP Pulse Ox O2 Del Method 97.6 F 87 18 128/82 98 Room Air 11/07/24 08:00 11/07/24 08:00 11/07/24 08:00 11/07/24 08:00 11/07/24 08:00 11/07/24 08:00 Narrative Exam General: Alert and oriented x3. No acute distress, cooperative HEENT: NCAT, No JVD noted. Mucosa moist. Pupils are equal and reactive to light bilaterally Cardiovascular: Normal S1 and S2. Regular rate and rhythm. Respiratory: Lungs are clear to auscultation bilaterally. No wheezing or crackles heard. Abdomen: Soft, nontender, not distended, normal bowel sounds. Left allograft minimally tender Skin: Warm to touch, dry, no rashes noted Musculoskeletal: No gross injuries. Able to move all 4 extremities. No pitting edema Neuro: Alert and oriented x3. No focal neuro deficits. Psych: Normal affect and mood Results Labs 11/07/24 04:57 07/09/25 04:57 Labs: Short CBC 11/06/24 11/07/24 Range/Units 15:31 04:57 WBC 13.2 H 13.2 H (3.6-11.0) Thou/mm3 Hgb 11.9 L 11.8 L (12.0-16.0) g/dL Hct 35.4 L 36.7 (36.0-46.0) % Plt Count 343 322 (140-440) Thou/mm3 BMP 11/06/24 11/07/24 15:31 04:57 Sodium 138 137 Potassium 4.0 4.5 D Chloride 105 102 Carbon Dioxide 23.3 25.1 BUN 17 15 Creatinine 1.6 H 1.6 H Glucose 198 H 185 H Calcium 8.4 8.7 Liver Function 11/06/24 11/07/24 Range/Units 15:31 04:57 Total Bilirubin 0.8 0.8 (0.3-1.2) mg/dL AST < 10 < 10 (0-34) U/L ALT 9 L 8 L (10-49) U/L Alkaline Phosphatase 62 62 (46-116) U/L Albumin 3.9 3.8 (3.5-5.0) gm/dL Urine 11/06/24 Range/Units 19:51 Urine Color Lt-Yellow (Lt Yel-Yel) Urine Clarity Turbid A (Clear/Hazy) Urine pH 5.5 (5.0-7.0) Ur Specific [place] 1.010 (1.001-1.035) Urine Protein Trace (Neg - Trace) Urine Glucose (UA) 3+ A (Negative) Quality Measures Quality Measures none Medications Home Medications and Allergies Home Medications ?Medication ?Instructions ?Recorded ?Confirmed ?Type cyclosporine modified 100 mg 100 mg PO BID 08/11/22 11/06/24 History capsule glipizide 10 mg tablet, extended 10 mg PO BID 08/11/22 11/06/24 History release 24 hr (Glucotrol XL) metoprolol tartrate 50 mg tablet 50 mg PO BID 08/11/22 11/06/24 History mycophenolate sodium 180 mg 540 mg PO BID 08/11/22 11/06/24 History tablet,delayed release prednisone 2.5 mg tablet 2.5 mg PO DAILY 08/11/22 11/06/24 History glipizide 2.5 mg tablet 25 mg PO BID 11/06/24 11/06/24 History Allergies Allergy/AdvReac Type Severity Reaction Status Date / Time codeine Allergy Severe Rash Verified 11/06/24 14:16 Fish Containing Products Allergy Severe Difficulty Verified 11/06/24 14:16 Breathing vancomycin Allergy Severe RASH Verified 11/06/24 14:16 Visit Medications Acetaminophen (Acetaminophen 325 Mg Tablet) 650 mg PO Q6H PRN PRN Reason: PAIN SCALE 1-3 (mild Stop: 12/06/24 20:04 Hydrocodone Bitart/Acetaminophen (Hydrocodone/Apap 5/325 Tablet) 1 tab PO Q6HR PRN PRN Reason: Pain 4-6 Stop: 11/11/24 21:07 Last Admin: 11/06/24 21:58 Dose: [address] (180 Mg Tablet) 0 ea PO BID [facility] Stop: 12/07/24 08:59 Last Admin: 11/07/24 08:08 Dose: 3 tablet Cyclosporine (Cyclosporine Modified 25 Mg Capsule) 100 mg PO BID [facility] Stop: 12/06/24 20:59 Last Admin: 11/07/24 08:10 Dose: 100 mg Dextrose (Dextrose 50%-Water Inj 50 Ml Syringe) 25 ml IV Q15MIN PRN PRN Reason: BG 50-70 responsive npo pt Stop: 12/06/24 22:53 Dextrose (Dextrose 50%-Water Inj 50 Ml Syringe) 50 ml IV Q15MIN PRN PRN Reason: BG <50 OR BG <70 & pt unresponsive Stop: 12/06/24 22:53 Glucagon (Glucagon Inj 1 Mg Vial) 1 mg IM Q15MIN PRN PRN Reason: BG <70, and no IV access Ceftriaxone Sodium/Dextrose (Rocephin/D5w 1gm Iv Premix) 1 gm in 50 mls @ 100 mls/hr IV QDAY [facility] Stop: 11/14/24 08:59 Last Admin: 11/07/24 08:10 Dose: 100 mls/hr Insulin Human Lispro (Insulin Lispro (Admelog) 1 Unit/0.01 Ml Unit) 0 unit SC [facility]; Protocol Stop: 12/07/24 07:29 Last Admin: 11/07/24 07:44 Dose: 1 unit Morphine Sulfate (Morphine Sulf Inj 10 Mg/Ml Vial) 1 mg IVP Q6HR PRN PRN Reason: Pain 7-10 Stop: 11/11/24 21:07 Last Admin: 11/06/24 21:29 Dose: 1 mg Ondansetron HCl (Ondansetron Inj 2 Mg/Ml Inj 2 Ml) 4 mg IVP Q6H PRN; Protocol PRN Reason: NAUSEA OR VOMITING Stop: 12/06/24 20:04 Last Admin: 11/07/24 08:44 Dose: 4 mg Prednisone (Prednisone 5 Mg Tablet) 2.5 mg PO QDAY [facility] Stop: 11/14/24 02:56 Last Admin: 11/07/24 08:07 Dose: 2.5 mg Scopolamine (Scopolamine 1 Mg Tdsy) 1 mg TOP Q3D [facility] Stop: 12/06/24 22:59 Last Admin: 11/06/24 23:12 Dose: 1 mg Sennosides (Senna Tablet) 1 tab PO QDAY PRN; Protocol PRN Reason: constipation Stop: 12/06/24 20:04 Discontinued Medications Cyclosporine (Cyclosporine Modified 25 Mg Capsule) 100 mg PO X1 ONE Stop: 11/06/24 20:32 Sodium Chloride (Ns) 1,000 mls @ 999 mls/hr IV .Q1H1M ONE Stop: 11/06/24 15:33 Last Infusion: 11/06/24 18:00 Dose: Infused Ceftriaxone Sodium 2 gm/ (Sodium Chloride) 50 mls @ 100 mls/hr IV X1 ONE Stop: 11/06/24 19:33 Last Admin: 11/06/24 19:23 Dose: 100 mls/hr Ceftriaxone Sodium/Dextrose (Rocephin/D5w 1gm Iv Premix) 1 gm in 50 mls @ 100 mls/hr IV QDAY [facility] Stop: 11/13/24 20:13 Morphine Sulfate (Morphine Sulf Inj 10 Mg/Ml Vial) 4 mg IVP X1 ONE Stop: 11/06/24 14:35 Last Admin: 11/06/24 17:59 Dose: 4 mg Non-Formulary Medication (Mycophenolic Acid Dr) 180 mg PO QDAY [facility] Stop: 12/06/24 20:44 Last Admin: 11/06/24 22:07 Dose: Not Given Home Medication- Please Speak With Patient Caregiver To Have Rx Brought To [facility] 540 mg PO BID [facility] Stop: 12/07/24 06:14 Ondansetron HCl (Ondansetron Inj 2 Mg/Ml Inj 2 Ml) 4 mg IVP X1 ONE; Protocol Stop: 11/06/24 14:32 Last Admin: 11/06/24 17:59 Dose: 4 mg Assessment & Plan Plan Kaylyn Wright is 44 yr female with PMH of CKD 3 S/P kidney transplant, hypertension, diabetes post transplant, frequent UTIs who presented to ED with chief complaint of dysuria. Nephrology team was consulted for complicated UTI in setting of renal transplant. Symptoms started Tuesday evening with onset of chills and fever. Transplant center had recommended that patient be evaluated by urology due to her frequent UTIs. #Dysuria 2/2 complicated UTI History of recurrent UTIs status post left side kidney transplant. Presented to ED with similar symptoms with dysuria.UA positive for UTI, WBC 13.2, tachycardia, no reported fever since admission. Per chart review, no history of multidrug-resistant organisms. CT abdomen pelvis showed bilateral renal atrophy. Allograft with mild hydronephrosis - Continue fluids ? Continue IV Zosyn 3.375g TID ?Urology consulted??appreciate recommendations ? Urine cultures pending ? Blood cultures pending - Renal ultrasound pending #CKD 3b s/p left side renal transplant Patient had transplant in 2010, kidney failure starting at the age of 26, denies any biopsies in the past. Follows with transplant center who had suggested that patient be evaluated by urology due to her recurrent symptoms. Has unfortunately been able to establish care. Will consult urology Dr. Lemon during admission. ?Resume home agents mycophenolate sodium 540 mg BID, cyclosporine 100 mg BID, and prednisone 2.5 mg qD -renally dose medications - Monitor electrolytes Thank you for opportunity of being part of patient's care. The patient's management plan was discussed with my attending physician Dr. Chappell. Keturah Herrera, PGY-2 Attending Provider Attestation/Addendum Patient seen and examined with resident physician Dr. Herrera. Note reviewed, agree with findings and recommendations with changes made. Well-known to be from my practice status post kidney transplant with mild chronic allograft nephropathy and CKD stage III. Patient developed posttransplant diabetes and hypertension. Recurrent episodes of hospitalization for complicated UTIs. This admission decided to proceed with a urology evaluation. Spoke to Dr Lemon-will come and see patient today. During interview she also stated that most of these urinary tract infections are associated with intercourse. Discussed postcoital prophylaxis with Cipro to prevent urinary tract infections. Thank you Dr. Bach for allowing me to participate in the care of Elsi Wright
[2024-11-07] MEDS: PIPER/TAZO 3.375 GM PREMIX 3.375 GM/50 ML BAG IV ×3 (09:41→21:03)
[2024-11-07] MEDS: ACETAMINOPHEN 325 MG TABLET 650 MG PO (09:41)
--- NOTE | 2024-11-07 10:38 | PC.SS ---
Follow up note: On IV antibiotic.
[2024-11-07 12:00] VITALS: BP 116/63; PULSE 84; RESP 18; TEMP 36.2; O2SAT 98
--- NOTE | 2024-11-07 12:15 | PC.SS ---
SS met with patient regarding her d/c plan. Pt is alert/oriented. Pt was admitted for UTI. Pt confirmed demographic and contact information is correct on facesheet. Pt resides with son. Pt ambulates independently without assistance or DME. Pt is ok with all ADLs. Patient?s pharmacy of choice is [facility] [address]. Pt named her sister Dori Benz medical decision maker if she is unable. Patient?s choice is to return home upon d/c. Pt does not have an advance directive, SS offered, and pt declined. Pt states she is diabetic but does not take insulin for her diabetes. Pt states she followed up with PCP 3 months ago. Pt state her friend will provide transportation home. D/C plan: Return home Next of Kin: Dori Benz, sister, phone# [phone] PCP: Dr. Chappell Address: Correct on facesheet
--- NOTE | 2024-11-07 13:28 | ESPR_ITS ---
<Statement entered by Johanne Bach MD - 11/19/24 14:14> I reviewed above note and agree with findings and plans. I have also personally examined the patient with medicine team and went over assessment and plan with medical team including improvement intern and resident physician. Documentation for date of: 11/07/24 Patient is a 44-year-old female with a past medical history of kidney transplant CKD stage IIIb (cyclophosphamide, prednisone, and mycophenolate), hypertension, hyperlipidemia, diabetes mellitus type 2 [id number] last A1c on file (09/18/2024) 7.7 and hyperlipidemia who presented with a chief complaint of urinary symptoms including dysuria, polyuria, subjective fevers at home.. Patient stated the symptoms were similar to previous urinary tract infections. Patient was admitted for complicated urinary tract infection given history of kidney transplant and urology consultation added. Previous urine cultures noted for E. coli pansensitive and Klebsiella . Repeat blood cultures obtained with urine cultures. Renal Diet modified for low carb consisted. Glargine 5 HS added given elevated glucose and A1c of 7.1% (08/2024). Given patient's immuno- compromise escalated to Zosyn. Dr Lemon will follow-up with [facility], Dr. Rod for further recommendations. Nephrology consulted appreciate recommendations. Subjective Subjective Interval history: Patient was seen and examined at bedside. A.m. vitals and labs reviewed. Patient still has slight burning sensation on urination. Patient no longer has back pain or fever. Denies headache, chest pain, shortness of breathe, urinary urgency or leakage. ROS is negative otherwise noted. Exam Vital Signs Temp Pulse Resp BP Pulse Ox O2 Del Method 97.2 F 84 18 116/63 98 Room Air 11/07/24 12:00 11/07/24 12:00 11/07/24 12:00 11/07/24 12:00 11/07/24 12:11/07/24 12:00 Narrative Exam General: No acute distress, well nourished Eye: PERRL, EOMI, normal conjunctiva, no scleral icterus HENT: Normocephalic, atraumatic, hearing intact to conversation at normal volume, moist oral mucosa Neck: Supple, non-tender, no JVD, no lymphadenopathy Lungs: Non-labored respirations, symmetric chest rise, Clear to auscultate bilaterally Heart: Peripheral pulses intact bilaterally Abdomen: Soft, non-tender, non-distended Musculoskeletal: Normal range of motion and strength Skin: Skin is warm, dry, no rashes or lesions. Psychiatric: Cooperative, appropriate mood and affect Neuro: Cranial nerves II-XII grossly intact. Strength 5/5 throughout. Sensations intact to light touch. Objective Labs 11/07/24 04:57 11/07/24 04:57 Labs: Laboratory Results - last 24 hr 11/06/24 11/06/24 11/07/24 15:31 19:51 04:57 WBC 13.2 H 13.2 H RBC 4.12 4.05 Hgb 11.9 L 11.8 L Hct 35.4 L 36.7 MCV 86 91 MCH 28.9 29.1 MCHC 33.6 32.2 RDW Std Deviation 44.5 47.0 H Plt Count 343 322 Neut % (Auto) 85 H 81 H Lymph % (Auto) 6 L 9 L [place] % (Auto) 8 10 Eos % (Auto) 0 1 Baso % (Auto) 0 0 Neut # (Auto) 11.2 H 10.6 H Lymph # (Auto) 0.8 L 1.2 [place] # (Auto) 1.1 H 1.3 H Eos # (Auto) 0.0 0.1 Baso # (Auto) 0.0 0.0 Immature Gran # (Auto) 0.05 H 0.06 H Absolute Nucleated RBC 0.00 0.00 Immature Gran % 0 1 H Nucleated RBC % 0 0 Sodium 138 137 Potassium 4.0 4.5 D Chloride 105 102 Carbon Dioxide 23.3 25.1 Anion Gap 10 10 BUN 17 15 Creatinine 1.6 H 1.6 H Estim Creat Clear Calc 41.9 L 41.9 L eGFR 40 L 40 L BUN/Creatinine Ratio 11 L 9 L Glucose 198 H 185 H Calculated Osmolality 283 279 Lactic Acid 1.1 Calcium 8.4 8.7 Corrected Calcium 8.5 8.9 Phosphorus 2.8 Magnesium 1.8 Total Bilirubin 0.8 0.8 AST < 10 < 10 ALT 9 L 8 L Alkaline Phosphatase 62 62 Total Protein 6.9 6.7 Albumin 3.9 3.8 Globulin 3.0 2.9 Albumin/Globulin Ratio 1.3 1.3 HCG, Qual Negative Ur Collection Type Clean Catch Urine Color Lt-Yellow Urine Clarity Turbid A Urine pH 5.5 Ur Specific [place] 1.010 Urine Protein Trace Urine Glucose (UA) 3+ A Urine Ketones 1+ A Urine Blood 1+ A Urine Nitrite Negative Urine Bilirubin Negative Urine Urobilinogen (Auto) Negative Ur Leukocyte Esterase Positive Urine RBC 20 H Urine WBC 325 H Ur Squamous Epith Cells 10 H Urine Bacteria 1+ A Quality Measures Quality Measures none Assessment & Plan Assessment Current Active Medications: Generic Name Dose Route Start Last Admin Trade Name Freq PRN Reason Stop Dose Admin Acetaminophen 650 mg 11/06/24 20:05 11/07/24 09:41 Acetaminophen 325 Mg Tablet PO 12/06/24 20:04 650 mg Q6H PRN Administration PAIN SCALE 1-3 (mild Hydrocodone Bitart/Acetaminophen 1 tab 11/06/24 21:08 11/06/24 21:58 Hydrocodone/Apap 5/325 Tablet PO 11/11/24 21:07 1 tab Q6HR PRN Administration Pain 4-[address] 0 ea 11/07/24 09:00 11/07/24 08:08 180 Mg Tablet PO 12/07/24 08:59 3 tablet BID ROSETTE Administration Cyclosporine 100 mg 11/06/24 21:00 11/07/24 08:10 Cyclosporine Modified 25 Mg Capsule PO 12/06/24 20:59 100 mg BID ROSETTE Administration Dextrose 25 ml 11/06/24 22:54 Dextrose 50%-Water Inj 50 Ml Syringe IV 12/06/24 22:53 Q15MIN PRN BG 50-70 responsive npo pt Dextrose 50 ml 11/06/24 22:54 Dextrose 50%-Water Inj 50 Ml Syringe IV 12/06/24 22:53 Q15MIN PRN BG <50 OR BG <70 & pt unresponsive Glucagon 1 mg 11/06/24 22:54 Glucagon Inj 1 Mg Vial IM Q15MIN PRN BG <70, and no IV access Piperacillin/Tazobactam/Dextrose 3.375 gm in 50 mls @ 12.5 mls/hr 11/07/24 14:00 Zosyn IV 11/14/24 13:59 Q8HR [facility] Protocol Insulin Human Lispro 0 unit 11/07/24 07:30 11/07/24 11:29 Insulin Lispro (Admelog) 1 Unit/0.01 Ml Unit SC 12/07/24 07:29 2 unit ACHS ROSETTE Administration Protocol Morphine Sulfate 1 mg 11/06/24 21:08 11/06/24 21:29 Morphine Sulf Inj 10 Mg/Ml Vial IVP 11/11/24 21:07 1 mg Q6HR PRN Administration Pain 7-10 Ondansetron HCl 4 mg 11/06/24 20:05 11/07/24 08:44 Ondansetron Inj 2 Mg/Ml Inj 2 Ml IVP 12/06/24 20:04 4 mg Q6H PRN Administration NAUSEA OR VOMITING Protocol Pharmacy Consult 1 each 11/07/24 09:16 Pharmacy To Consult Patient XX 12/07/24 09:15 PRN PRN CONSULT Prednisone 2.5 mg 11/07/24 09:00 11/07/24 08:07 Prednisone 5 Mg Tablet PO 11/14/24 02:56 2.5 mg QDAY [facility] Administration Scopolamine 1 mg 11/06/24 23:00 11/06/24 23:12 Scopolamine 1 Mg Tdsy TOP 12/06/24 22:59 1 mg Q3D ROSETTE Administration Sennosides 1 tab 11/06/24 20:05 Senna Tablet PO 12/06/24 20:04 QDAY PRN constipation Protocol Plan Patient is a 44-year-old F with a PMH of CKD 3 S/P kidney transplant, hypertension, diabetes, frequent UTIs who presents today with a chief complaint of UTI symptoms. Patient was admitted for the work-up and management of complicated UTI. #Complicated UTI #Urethritis #Nausea -Upon admission, labs were significant for elevated WBC 13.2 (85% neutrophilic predominance), turbid UA with 3+ glucose, 1+ ketones, 1+ blood, high RBC 30, high WBC 325, positive LE, and +1 bacteria Patient has no history of ESBL-related UTI -CT abd/pelvis (11/06/2024): End-stage atrophic [place] kidneys, Findings consistent with urinary tract infection involving the transplant kidney, ureteritis and cystitis -Renal US (11/05/2024): Minimal transplant left hydronephrosis, consider urinary tract infection Plan: -Started patient on IV ceftriaxone (discontinued) switched to zosyn 3.375gm IV Q8hr (11/07-) for coverage of Pseudomonas as patient is immunocompromised due to kidney transplant. -Could consider ordering tests for gonorrhea or chlamydia -Pain management as necessary -Scopolamine patch -Nephrology has been consulted, awaiting recommendations -Patient has been educated on the importance of post-coital micturition in reducing the risk of future UTIs #CKD Stage III b #Kidney transplant patient CKD Stage 3B s/p renal transplant -Restarted home medications of mycophenolate sodium 540 mg BID, cyclosporine 100 mg BID, and prednisone 2.5 mg qD #T2DM, non-insulin dependent Previous A1c 7.1% (08/2024) with fasting glucose of 198 on admission. Patient has had elevated bedside glucose readings greater than 200. Plan -Glargine 5 units HS -Started on insulin sliding scale -Continue to monitor Fasting glucose. Hospital Management: Disposition: undergoing workup and management of complicated UTI Fluids: none Diet: renal, low carb consisten DVT Prophylaxis: SCDs, self ambulatory GI Prophylaxis: Zofran Bowel Prophylaxis: senna CODE STATUS: Full Code Assessment and plan discussed with my attending physician Dr. Bach and Dr. Raygoza (PGY-2) Dr. Khalil (PGY-1)- Internal medicine resident - The patient's plan was discussed with attending Dr. Mikala Raygoza MD PGY2 Internal Medicine
[2024-11-07 16:00] VITALS: BP 122/71; PULSE 66; RESP 18; TEMP 36.6; O2SAT 95
--- NOTE | 2024-11-07 17:01 | UCCONSULT_ITS ---
RE: KELLY ODONNELL : 1980 DATE OF CONSULTATION: 11/07/[address] Chappell. CHIEF COMPLAINT: Recurrent urinary tract infection for the last 10 years. The patient gets urinary tract infection 4 times a year. She was in the hospital with urosepsis in 08/2024. She grew Klebsiella and she was treated with antibiotics. The patient got well. HISTORY OF PRESENT ILLNESS: This patient is status post kidney transplant left and she has chronic kidney disease stage III. This time, this patient started with fever and burning of urination 3 days prior to coming to the hospital. She has a history of backache and sweating, which has been there for almost a week prior to coming to the emergency room. Urine cultures have been sent and blood cultures have been sent and the culture sensitivity is not back yet. This patient had a kidney transplant done at [facility] in 2010 and she has been on anti- rejection medication, which is cyclosporine, mycophenolate, and prednisone. This patient has a history of hereditary kidney failure, which affected both her parents and uncles. She is 0, para 0. She is sexually active, but does not use protections. In 08/2024, urine culture revealed Klebsiella, which was resistant to Macrobid. The patient is observing perineal hygiene and she is taking showers. REVIEW OF SYSTEMS: All systems reviewed, negative except as documented. General Condition: Had fever, chills. HEENT: No sore throat. Heart: No chest pain or palpitations. Lungs: Denies any shortness of breath. Abdomen: Had nausea. No abdominal pain. Genitourinary: Had dysuria and urinary frequency. PAST MEDICAL HISTORY: Neurology: Negative for any neurology disorders. Cardiac: Positive cardiac disorder with hypertension, negative congestive heart failure. Respiratory: Negative COPD. Gastrointestinal: Negative any GI disorder. Genitourinary: Recurrent urinary tract infection, chronic kidney disease. Reproductive: Negative any pelvic inflammatory disease. Endocrine: Diabetes type 2. Hematological: No sickle cell disease. PHYSICAL EXAMINATION: GENERAL: On examination, the patient is alert and not in acute distress. HEENT: Normocephalic and atraumatic. Eyes: No anemia or jaundice. NECK: Supple, trachea central. VITAL SIGNS: Stable. Her blood pressure in the emergency room yesterday was 121/74, pulse 90, respirations 18. VARIOUS LABS: BUN is 15, creatinine is 1.6, GFR is 40. Urine culture and blood culture have been ordered, but they are still pending. She has CAT scan of the abdomen and pelvis done on 11/06/2024. This revealed bilateral atrophic kidneys and there is calcification, which is subcentimeter on both sides. There is no hydronephrosis identified. IMPRESSION: Recurrent urinary tract infection, history of urosepsis. She has no history of breast or uterine cancer. RECOMMENDATIONS: 1. Treat her UTI with appropriate antibiotics according to the culture sensitivity report. 2. Estrace vaginal cream 2 g per vagina twice a week. 3. The patient can be on heparin 1 g p.o. b.i.d. as a prophylaxis. 4. She may need to be evaluated for nidus of infection in her atrophic kidneys and I will discuss her situation with Dr. Villalpando at [facility]. All above issues were discussed with the patient. I answered her questions to her satisfaction. cc: Tesfaye Chappell MD DT: 15:44:07 TT: 17:00:00 Ref: [id number] - TID: [id number]
[2024-11-07 20:00] VITALS: BP 160/82; PULSE 63; RESP 18; TEMP 36.4; O2SAT 100
[2024-11-07] MEDS: HYDROcodone/APAP 5/325 TABLET 1 TAB PO (21:01)
[2024-11-07] MEDS: INSULIN GLARGINE (Lantus) 5 UNIT/0.05 ML (PER 5 UNITS) SC (21:03)
[2024-11-08] VITALS: BP 107/68; PULSE 60; RESP 17; TEMP 36.4; O2SAT 96
[2024-11-08 04:00] VITALS: BP 155/74; PULSE 70; RESP 17; TEMP 36.1; O2SAT 97
[2024-11-08] MEDS: PIPER/TAZO 3.375 GM PREMIX 3.375 GM/50 ML BAG IV (05:51)
[2024-11-08 06:27] LABS: Basophils # (Auto) 0.1 Thou/mm3 (0.0-0.2); Basophils % (Auto) 1 % (0-2.5); Eosinophils # (Auto) 0.2 Thou/mm3 (0.0-0.5); Eosinophils % (Auto) 2 % (0-10); Hematocrit 34.2 % (36.0-46.0); Hemoglobin 11.3 g/dL (12.0-16.0); Immature Granulocytes Auto 0.03 Thou/mm3 (0.00-0.00); Lymphocytes # (Auto) 1.8 Thou/mm3 (1.0-4.8); Lymphocytes % (Auto) 21 % (10-50); Mean Corpuscular HGB Conc 33.0 g/dl (31.0-37.0); Mean Corpuscular Hemoglobin 28.6 pg (25.0-35.0); Mean Corpuscular Volume 87 fL (80-100); Monocytes # (Auto) 1.0 Thou/mm3 (0.0-0.8); Monocytes % (Auto) 12 % (0-12); Neutrophils # (Auto) 5.3 Thou/mm3 (1.8-7.7); Neutrophils % (Auto) 64 % (37-80); Nucleated Red Blood Cell # 0.00 Thou/mm3 (0.00-0.00); Nucleated Red Blood Cell % 0 /100 WBC (0); Platelet Count 340 Thou/mm3 (140-440); RDW Standard Deviation 43.8 fL (36.4-46.3); Red Blood Count 3.95 Miln/mm3 (4.00-5.20); White Blood Count 8.3 Thou/mm3 (3.6-11.0)
[2024-11-08 07:06] LABS: Alanine Aminotransferase 9 U/L (10-49); Albumin, Serum 3.9 gm/dL (3.5-5.0); Albumin/Globulin Ratio 1.4 (1.2-2.2); Alkaline Phosphatase 59 U/L (46-116); Anion Gap 10 (7-16); Aspartate Amino Transferase 10 U/L (0-34); BUN/Creatinine Ratio 10 Ratio (12-20); Bilirubin,Total 0.6 mg/dL (0.3-1.2); Blood Urea Nitrogen 17 mg/dL (9-23); Calcium 9.2 mg/dL (8.3-10.6); Calcium (Corrected) 9.3 mg/dL (8.5-10.1); Carbon Dioxide 26.1 mMol/L (20.0-31.0); Cardiac Risk Estimate 3.6 RATIO (3.7-5.6); Chloride 102 mMol/L (98-107); Cholesterol 199 mg/dL (132-200); Creatinine (Component) 1.7 mg/dL (0.6-1.3); Estimated Creatinine Clearance 40.3 mL/min (>60); Globulin 2.8 gm/dL (2.3-3.5); Glucose 164 mg/dL (74-106); HDL Cholesterol 56 mg/dL (40-60); LDL Cholesterol,Calculated 117 mg/dL (0-130); Magnesium 1.8 mg/dL (1.6-2.6); Osmolality,Calculated 281 (275-295); Phosphorous 2.7 mg/dL (2.4-5.1); Potassium 4.0 mMol/L (3.4-5.1); Sodium 138 mMol/L (136-145); Total Protein 6.7 gm/dL (5.7-8.2); Triglycerides 129 mg/dL (30-150); eGFR 37 See Note
[2024-11-08 07:14] LABS: Glucose Estimated Average 169 mg/dL (80-131); Hemoglobin A1C 7.5 % Hgb (4.8-6.0)
[2024-11-08] MEDS: INSULIN LISPRO (AdmeLOG) 1 UNIT/0.01 ML UNIT SC ×2 (07:44→11:51)
[2024-11-08 07:59] VITALS: BP 128/66; PULSE 69; RESP 17; TEMP 36.1; O2SAT 96
--- NOTE | 2024-11-08 10:05 | PD.RESPRO ---
Documentation for date of: 11/08/24 Subjective Subjective Interval history: Ms. Kaylyn Wright is 44 yr female with PMH of CKD 3 S/P living unrelated kidney transplant 2010, hypertension, diabetes post transplant, frequent UTIs who presented to ED with chief complaint of dysuria. In the ER-transplant center was called in and requested urology consultation. Nephrology team was consulted for complicated UTI in setting of renal transplant. Symptoms started Tuesday evening with onset of chills and fever. Gradually symptoms progressed to dysuria and bladder discomfort. Patient stated she was able to recognize the symptoms due to recurrent infections. She had living unrelated transplant in 2010 on the left side. She was diagnosed with kidney failure at the age of 26 with extensive family history of kidney disease in mother, father, grandmother, and aunts. None of the family members underwent biopsy of the kidneys. Members have needed to undergo dialysis. Patient was unable to receive any biopsies in the past due to shrunken/shriveled kidneys. Transplant center had recommended that patient be evaluated by urology due to her frequent UTIs. She has been unable to establish care outpatient as of yet. Nephrology team will consult Dr. Lemon who is on board and willing to evaluate patient. Per chart review, no evidence of multidrug-resistant organisms. Denies any headache, abdominal pain, diarrhea. Does endorse some nausea, vomiting, fever, chills. 11/07/2024 white count 13.2, hemoglobin 11.8, platelets 322. Sodium 137, potassium 4.5, BUN 15, creatinine 1.6, GFR 40, calcium 8.9, phosphorus 2.8, magnesium 1.8, LFTs normal last admission her A1c was 7.1. Urinalysis shows significant pyuria. Renal ultrasound showed left to transplant with mild hydronephrosis. Benign renal cysts in the [place] kidneys. CT abdomen and pelvis that showed bilateral end-stage [place] kidneys with severe atrophy. Left allograft with perinephric stranding consistent with a UTI. 11/08/24: Patient examined at bedside, no major complaints states that her pain is improving. Blood sugar 196 this morning, vitals are stable, cytosis improving 8.3 today. Hemoglobin stable, creatinine 1.6, A1c 7.5, calcium 9.3, phosphorus 2.7, magnesium 1.8. Dr Lemon spoke with specialist at [facility] Dr. Villalpando for other evaluation of her recurrent infections. Patient should continue with estrace vaginal cream 2g BID, complete current course of antibiotics, and start postcoital prophylaxis with ciprofloxacin to prevent UTIs. This admission urine cultures positive for Klebsiella with sensitivity to ciprofloxacin and ceftriaxone. Preliminary blood cultures negative. Exam Vital Signs Temp Pulse Resp BP Pulse Ox O2 Del Method 97 F 69 17 128/66 96 Room Air 11/08/24 07:59 11/08/24 07:59 11/08/24 07:59 11/08/24 07:59 11/08/24 07:59 11/08/24 07:59 Narrative Exam General: Alert and oriented x3. No acute distress, cooperative HEENT: NCAT, No JVD noted. Mucosa moist. Pupils are equal and reactive to light bilaterally Cardiovascular: Normal S1 and S2. Regular rate and rhythm. Respiratory: Lungs are clear to auscultation bilaterally. No wheezing or crackles heard. Abdomen: Soft, nontender, not distended, normal bowel sounds. Left allograft minimally tender Skin: Warm to touch, dry, no rashes noted Musculoskeletal: No gross injuries. Able to move all 4 extremities. No pitting edema Neuro: Alert and oriented x3. No focal neuro deficits. Psych: Normal affect and mood Objective Labs 11/08/24 04:34 11/08/24 10:30 Labs: Laboratory Results - last 24 hr 11/08/24 04:34 WBC 8.3 RBC 3.95 L Hgb 11.3 L Hct 34.2 L MCV 87 MCH 28.6 MCHC 33.0 RDW Std Deviation 43.8 Plt Count 340 Neut % (Auto) 64 Lymph % (Auto) 21 [place] % (Auto) 12 Eos % (Auto) 2 Baso % (Auto) 1 Neut # (Auto) 5.3 Lymph # (Auto) 1.8 [place] # (Auto) 1.0 H Eos # (Auto) 0.2 Baso # (Auto) 0.1 Immature Gran # (Auto) 0.03 H Absolute Nucleated RBC 0.00 Immature Gran % 0 Nucleated RBC % 0 Sodium 138 Potassium 4.0 D Chloride 102 Carbon Dioxide 26.1 Anion Gap 10 BUN 17 Creatinine 1.7 H Estim Creat Clear Calc 40.3 L eGFR 37 L BUN/Creatinine Ratio 10 L Glucose [address] Glu mg/dL 169 H Hemoglobin A1c 7.5 H Calculated Osmolality 281 Calcium 9.2 Corrected Calcium 9.3 Phosphorus 2.7 Magnesium 1.8 Total Bilirubin 0.6 AST 10 ALT 9 L Alkaline Phosphatase 59 Total Protein 6.7 Albumin 3.9 Globulin 2.8 Albumin/Globulin Ratio 1.4 Triglycerides 129 Cholesterol 199 LDL Cholesterol, Calc 117 HDL Cholesterol 56 Cholesterol/HDL Ratio 3.6 L Quality Measures Quality Measures none Assessment & Plan Assessment Current Active Medications: Generic Name Dose Route Start Last Admin Trade Name Freq PRN Reason Stop Dose Admin Acetaminophen 650 mg 11/06/24 20:05 11/07/24 09:41 Acetaminophen 325 Mg Tablet PO 12/06/24 20:04 650 mg Q6H PRN Administration PAIN SCALE 1-3 (mild Hydrocodone Bitart/Acetaminophen 1 tab 11/06/24 21:08 11/07/24 21:01 Hydrocodone/Apap 5/325 Tablet PO 11/11/24 21:07 1 tab Q6HR PRN Administration Pain 4-[address] 0 ea 11/07/24 09:00 11/07/24 21:02 180 Mg Tablet PO 12/07/24 08:59 3 tablet BID ROSETTE Administration Cyclosporine 100 mg 11/06/24 21:00 11/07/24 21:02 Cyclosporine Modified 25 Mg Capsule PO 12/06/24 20:59 100 mg BID ROSETTE Administration Dextrose 25 ml 11/06/24 22:54 Dextrose 50%-Water Inj 50 Ml Syringe IV 12/06/24 22:53 Q15MIN PRN BG 50-70 responsive npo pt Dextrose 50 ml 11/06/24 22:54 Dextrose 50%-Water Inj 50 Ml Syringe IV 12/06/24 22:53 Q15MIN PRN BG <50 OR BG <70 & pt unresponsive Glucagon 1 mg 11/06/24 22:54 Glucagon Inj 1 Mg Vial IM Q15MIN PRN BG <70, and no IV access Piperacillin/Tazobactam/Dextrose 3.375 gm in 50 mls @ 12.5 mls/hr 11/07/24 14:00 11/08/24 05:51 Zosyn IV 11/14/24 13:59 12.5 mls/hr Q8HR ROSETTE Administration Protocol Lactated Ringer's 1,000 mls @ 999 mls/hr 11/08/24 09:51 Lactated Ringers IV 11/08/24 10:51 .Q1H1M ONE Insulin Glargine 5 unit 11/07/24 21:00 11/07/24 21:03 Insulin Glargine (Lantus) 5 Unit/0.05 Ml (Per 5 Units) SC 12/07/24 20:59 5 unit HS ROSETTE Administration Insulin Human Lispro 0 unit 11/07/24 07:30 11/08/24 07:44 Insulin Lispro (Admelog) 1 Unit/0.01 Ml Unit SC 12/07/24 07:29 1 unit ACHS ROSETTE Administration Protocol Morphine Sulfate 1 mg 11/06/24 21:08 11/06/24 21:29 Morphine Sulf Inj 10 Mg/Ml Vial IVP 11/11/24 21:07 1 mg Q6HR PRN Administration Pain 7-10 Ondansetron HCl 4 mg 11/06/24 20:05 11/07/24 21:15 Ondansetron Inj 2 Mg/Ml Inj 2 Ml IVP 12/06/24 20:04 4 mg Q6H PRN Administration NAUSEA OR VOMITING Protocol Pharmacy Consult 1 each 11/07/24 09:16 Pharmacy To Consult Patient XX 12/07/24 09:15 PRN PRN CONSULT Prednisone 2.5 mg 11/07/24 09:00 11/07/24 08:07 Prednisone 5 Mg Tablet PO 11/14/24 02:56 2.5 mg QDAY ROSETTE Administration Scopolamine 1 mg 11/06/24 23:00 11/06/24 23:12 Scopolamine 1 Mg Tdsy TOP 12/06/24 22:59 1 mg Q3D ROSETTE Administration Sennosides 1 tab 11/06/24 20:05 Senna Tablet PO 12/06/24 20:04 QDAY PRN constipation Protocol Plan Kaylyn Wright is 44 yr female with PMH of CKD 3 S/P kidney transplant, hypertension, diabetes post transplant, frequent UTIs who presented to ED with chief complaint of dysuria. Nephrology team was consulted for complicated UTI in setting of renal transplant. Symptoms started Tuesday evening with onset of chills and fever. Transplant center had recommended that patient be evaluated by urology due to her frequent UTIs. #Dysuria 2/2 complicated UTI # Klebsiella UTI History of recurrent UTIs status post left side kidney transplant. Presented to ED with similar symptoms with dysuria.UA positive for UTI, WBC 13.2, tachycardia, no reported fever since admission. Per chart review, no history of multidrug-resistant organisms. CT abdomen pelvis showed bilateral renal atrophy. Allograft with mild hydronephrosis Minimal transplant left hydronephrosis with significant scarring on left kidney - Stopped fluids -Urge oral intake ? Primary team to consider de-escalation of antibiotics ?Urology consulted??appreciate recommendations. Dr Martinez will speak with specialist at [facility] , Dr. Villalpando due to patient's atrophic kidney and recurrent infections. ? Urine cultures pansensitive Klebsiella ? Preliminary blood cultures negative #CKD 3b s/p left side renal transplant Patient had transplant in 2010, kidney failure starting at the age of 26, denies any biopsies in the past. Follows with transplant center who had suggested that patient be evaluated by urology due to her recurrent symptoms. Has unfortunately been able to establish care. Will consult urology Dr. Lemon during admission. ?Resume home agents mycophenolate sodium 540 mg BID, cyclosporine 100 mg BID, and prednisone 2.5 mg qD -renally dose medications - Monitor electrolytes Thank you for opportunity of being part of patient's care. The patient's management plan was discussed with my attending physician Dr. Chappell. Keturah Herrera, PGY-2 Attending Provider Attestation/Addendum Patient seen and examined with resident physician Dr. Herrera. Note reviewed, agree with findings and recommendations with few changes made. Patient with complicated UTI. Cultures came back positive for Klebsiella. She will be discharged on Augmentin and Keflex for postcoital prophylaxis.
[2024-11-08] MEDS: MYCOPHENOLIC ACID 180 MG PO (10:37)
[2024-11-08] MEDS: RINGERS LACTATED 1000 ML 1,000 ML 999 ML IV (10:40)
[2024-11-08 11:23] LABS: Albumin, Serum 4.1 gm/dL (3.5-5.0); Anion Gap 9 (7-16); BUN/Creatinine Ratio 9 Ratio (12-20); Blood Urea Nitrogen 17 mg/dL (9-23); Calcium 9.2 mg/dL (8.3-10.6); Calcium (Corrected) 9.2 mg/dL (8.5-10.1); Carbon Dioxide 25.4 mMol/L (20.0-31.0); Chloride 101 mMol/L (98-107); Creatinine (Component) 1.8 mg/dL (0.6-1.3); Estimated Creatinine Clearance 38.1 mL/min (>60); Glucose 293 mg/dL (74-106); Osmolality,Calculated 282 (275-295); Phosphorous 1.9 mg/dL (2.4-5.1); Potassium 4.1 mMol/L (3.4-5.1); Sodium 135 mMol/L (136-145); eGFR 35 See Note
[2024-11-08 12:00] VITALS: BP 136/82; PULSE 56; RESP 17; TEMP 36.7; O2SAT 99
--- NOTE | 2024-11-08 13:25 | ESDS_ITS ---
<Statement entered by Johanne Bach MD - 11/19/24 14:15> I reviewed above note and agree with findings and plans. I have also personally examined the patient with medicine team and went over assessment and plan with medical team including manager internal and resident physician. Planned Discharge Date 11/08/24 DS: Providers Provider Date of admission: 11/06/24 20:00 Primary care physician: Tesfaye Chappell MD Admitting Provider: Kai Lynch DO Attending Provider on Admission: Kai Lynch DO Consults: 11/06/24 20:13 Consult to Nephrology Stat Comment: kidney transplant patient Consulting Provider: Tesfaye Chappell 11/07/24 09:18 Consult to Urology Routine Comment: recurrent UTI post transplant Consulting Provider: Megan Lemon Attending Provider on DC: RESIDENT Dada Discharging Provider: RESIDENT Dada DS: Diagnosis Problem List Completed Was Problem List Reviewed/Reconciled?: Yes Hospital Course Hospital Course Hospital course: Plan Patient is a 44-year-old F with a PMH of CKD 3 S/P kidney transplant, hypertension, diabetes mellitus type 2 non insulin dependent, frequent UTIs who presents today with a chief complaint of UTI symptoms. Patient was admitted for the work-up and management of complicated UTI. Received IV antibiotics and discharged on oral Augmentin and Keflex for prophylaxis post coitus. ED Course: Vitals showed: BP 145/82 HR 115 RR 18 Temp 99.3 SpO2 98 on room air. CBC showed high WBC 13.2 w/ neutrophilic predominance (85%). CMP showed high creatinine 1.6, low eGFR 40, and high glucose 198. UA was turbid and showed 3+ glucose, 1+ ketones, 1+ blood, high RBC 20, high WBC 325, positive leukocyte esterase, and +1 bacteria. Patient received IV ceftriaxone and 1L NS bolus. CTAP showed end-stage atrophic [place] kidneys and findings consistent with urinary tract infection involving the transplant kidney, ureteritis and cystitis. Hospital Course: Patient was switched from ceftriaxone IV to Zosyn 3.375gm IV Q8hr for coverage of Pseudomonas as patient is immunocompromised due to kidney transplant. Restarted home medications of mycophenolate sodium 540 mg BID, cyclosporine 100 mg BID, and prednisone 2.5 mg qD. Received Glargine 5 units HS. Urine cultures were positive for Klebsiella with sensitivity to ciprofloxacin and ceftriaxone. Preliminary blood cultures were negative. Ciprofloxacin was not chosen as prophylactic anibiotics post coital due to her history of kidney transplant and rising creatinine trend. Patient will follow up with nephrology and urology after discharge. Patient to complete 10 additional days on Augmentin and transition to Keflex prophylaxis. #Dysuria secondary to complicated UTI #Klebsiella UTI #CKD 3b s/p left side renal transplant #T2DM, non-insulin dependent Instructions: -Please complete course of antibiotic with Augmentin twice daily for the next 10 days -After you complete Augmentin, start taking Cephalexin 250 mg once daily for prophylactic antibiotics post coital -Please take the rest of your medications as prescribed. -Please follow up with your PCP with a renal panel prior to seeing your PCP or grated cheese maker -Please follow up with nephrology and urology -Please follow up with your primary care provider within one week of discharge -If your symptoms worsen,please seek immediate medical attention and return to your nearest emergency room -If you do not have a primary care provider, you may follow up at the [facility] at [address] [place] [address] [address], [place] [address], Phone Safe to discharge to Home Assessment and plan discussed with my attending physician Dr. Bach and Dr. Raygoza (PGY-2) Dr. Khalil (PGY-1)- Internal medicine resident - The patient's plan was discussed with attending Dr. Idalmis Raygoza MD PGY2 Internal Medicine Time Spent with Patient Time attestation: Total time spent providing and/or coordinating discharge services: Time spent: Greater than 30 minutes Exam Vital Signs Temp Pulse Resp BP Pulse Ox O2 Del Method 98.1 F 56 L 17 136/82 H 99 Room Air 11/08/24 12:11/08/24 12:00 11/08/24 12:00 11/08/24 12:00 11/08/24 12:11/08/24 12:00 Narrative Exam General: No acute distress, well nourished Eye: PERRL, EOMI, normal conjunctiva, no scleral icterus HENT: Normocephalic, atraumatic, hearing intact to conversation at normal volume, moist oral mucosa Neck: Supple, non-tender, no JVD, no lymphadenopathy Lungs: Non-labored respirations, symmetric chest rise, Clear to auscultate bilaterally Heart: Peripheral pulses intact bilaterally Abdomen: Soft, non-tender, non-distended Musculoskeletal: Normal range of motion and strength Skin: Skin is warm, dry, no rashes or lesions. Psychiatric: Cooperative, appropriate mood and affect Neuro: Cranial nerves II-XII grossly intact. Strength 5/5 throughout. Sensations intact to light touch. Discharge Plan Plan Patient Disposition: HOME (Self Care) Patient condition on transfer: Stable Care Plan Goals: Instructions: -Please complete course of antibiotic with Augmentin twice daily for the next 10 days -After you complete Augmentin, start taking Cephalexin 250 mg once daily for prophylactic antibiotics post coital -Please take the rest of your medications as prescribed. -Please follow up with your PCP with a renal panel prior to seeing your PCP or grated cheese maker -Please follow up with nephrology and urology -Please follow up with your primary care provider within one week of discharge -If your symptoms worsen,please seek immediate medical attention and return to your nearest emergency room -If you do not have a primary care provider, you may follow up at the [facility] [address], [place] [address], Prescriptions/Referrals Prescriptions/Med Rec: New glipizide 5 mg tablet extended release 24hr 5 mg PO QDAY 30 Days Qty: 30 0RF clotrimazole 1 % cream 1 applic topical ONCE HS 7 Days Qty: 45 0RF amoxicillin-pot clavulanate [Augmentin] 500-125 mg tablet 1 tab PO BID 10 Days Qty: 20 0RF cephalexin 250 mg capsule 250 mg PO QDAY 30 Days Qty: 30 0RF Continued prednisone 2.5 mg tablet 2.5 mg PO DAILY metoprolol tartrate 50 mg Tablet 50 mg PO BID mycophenolate sodium 180 mg tablet,delayed release (DR/EC) 540 mg PO BID cyclosporine modified 100 mg capsule 100 mg PO BID Discontinued glipizide 2.5 mg tablet 25 mg PO BID glipizide [Glucotrol XL] 10 mg Tablet Extended Release 24hr 10 mg PO BID Referrals: Megan Lemon MD [Physician] - Tesfaye Chappell MD [Primary Care Provider] - Outpatient Orders (i.e. Home Health, Labs, Imaging): Renal Function Panel (Routine) Location: None Selected Ordered By: Kyleigh Raygoza Patient/Caregiver Discharge Instructions Education Materials: ED Bladder Infec Cystitis Female Ch Print Language: Singaporean Stand Alone Forms: Lo Award Info., Patient Portal Info Letter Discharge Order Discharge Orders: Discharge (Routine); Ordered 11/08/24 Ordered By: Kyleigh Raygoza Quality Discharge Quality Measures VTE prophylaxis
== END 2024-11-08 14:55 | disposition home or self-care (01) | DRG 463 ==
LOC: SERX 19:05 → SERHOLD 20:20 → S3SX 21:46
PROVIDERS: Nurse Practitioner Family; Admitting Provider Student in an Organized Health Care Education/Training Program; Emergency Provider Family Medicine; PCP Internal Medicine; Visit Provider Student in an Organized Health Care Education/Training Program
DX: N13.6 Pyonephrosis (principal); Z94.0 Kidney transplant status; N18.32 Chronic kidney disease, stage 3b; I12.9 Hypertensive chronic kidney disease with stage 1 through stage 4 chronic kidney disease, or unspecified chronic kidney disease; Z87.440 Personal history of urinary (tract) infections; E11.65 Type 2 diabetes mellitus with hyperglycemia; E11.22 Type 2 diabetes mellitus with diabetic chronic kidney disease; D84.821 Immunodeficiency due to drugs; E78.5 Hyperlipidemia, unspecified; Z16.29 Resistance to other single specified antibiotic; Z79.4 Long term (current) use of insulin; Z79.624 Long term (current) use of inhibitors of nucleotide synthesis; Z79.84 Long term (current) use of oral hypoglycemic drugs; N28.1 Cyst of kidney, acquired; B96.1 Klebsiella pneumoniae [K. pneumoniae] as the cause of diseases classified elsewhere; Z88.1 Allergy status to other antibiotic agents
CPT/HCPCS: 36415; 74176; 76770; 80053; 80061; 80069; 81001; 83036; 83605; 83735; 84100; 84703; 85025; 87040; 87077; 87086; 87186; 96374; 96375; 96376; J0696; J1815; J2270; J2405; J2543; J7030; J7050; J7120; J7512; J7515; A9270